=== PATIENT | female | born 1945 | race Caucasian/White ===

== ENCOUNTER → 2017-01-14 | Outpatient (CLI) | payer OTHER ==
[~2017-01-14] MED LIST: AMOX875T PO; ASPCH81X PO; CALCTAB7 PO; CIPR-255 PO; CPROT OT; DICL1GEL12 TD; DILT180C PO; ISOS30TA3 PO; LEVO100T PO; NSNN50; NTRGSL/4 UT; OMEP20CA9 PO; SIMV10TA2 PO; SYMIN160 INH; ZNTT/150 PO
[2017-01-14 15:31] LABS: BASO % 0.3 %; BASO ABS # 0.03 K/uL (0-0.2); COMPLETE YES; EOS % 3.3 %; HEMATOCRIT 34.6 % (37-47); IG% 0.2 %; LYMPH ABS # 1.84 K/uL (1.2-3.4); MEAN CORPUSCULAR HEMOGLOBIN 31.2 pg (25-34); MEAN CORPUSCULAR HGB CONC 33.5 g/dl (32-36); MEAN PLATELET VOLUME 10.3 fL (7.4-10.4); MONO % 7.5 %; NEUT % 68.7 %; PLATELET COUNT 310 K/uL (130-400); RED BLOOD COUNT 3.72 M/uL (4.2-5.4); WHITE BLOOD COUNT 9.19 K/uL (4.8-10.8)
[2017-01-14 15:50] LABS: ALT/SGPT 49 U/L (12-78); AST/SGOT 31 U/L (15-37); BLOOD UREA NITROGEN 12 mg/dl (7-18); BUN/CREATININE RATIO 14.8 (10-20); CALCIUM 9.2 mg/dl (8.5-10.1); CARBON DIOXIDE 21 mmol/L (21-32); CHLORIDE 106 mmol/L (98-107); CREATININE 0.81 mg/dl (0.60-1.20); GLUCOSE 93 mg/dl (70-99); POTASSIUM 3.7 mmol/L (3.5-5.1); SODIUM 137 mmol/L (136-145)
[2017-01-14 16:00] LABS: ALB/GLOB RATIO 0.7 (0.9-2); ALKALINE PHOSPHATASE 87 U/L (45-117)
== END | disposition home or self-care (01) ==
LOC: C.LAB1850 14:25
PROVIDERS: ATTEND Neuromusculoskeletal Medicine & OMM
DX: E03.9 Hypothyroidism, unspecified (principal); R53.83 Other fatigue

== ENCOUNTER 2017-01-17 10:35 | Emergency (ER) | payer OTHER ==
[~2017-01-17] VITALS: Ht 162.6 cm; Wt 85.0 kg
[~2017-01-17 10:35] MED LIST changes: -AMOX875T PO; -CIPR-255 PO; -CPROT OT; -DILT180C PO; -ZNTT/150 PO
[2017-01-17 10:37] VITALS: TEMP 36.6; Ht 162.6 cm; Wt 85.0 kg
[2017-01-17] MEDS ORDERED: METOCLOPRAMIDE HCL INJ 5 MG/ML 2 ML VIAL IV STA (11:18)
[2017-01-17] MEDS ORDERED: DiphenhydrAMINE HCL 50 MG/ML VIAL IV STA (11:18)
[2017-01-17] MEDS ORDERED: ACETAMINOPHEN 500 MG TAB PO STA (11:18)
[2017-01-17] MEDS ORDERED: ZNTT/150 PO (11:21)
[2017-01-17] MEDS ORDERED: DILT180C PO (11:21)
--- NOTE | 2017-01-17 11:28 | EMERGENCY ROOM VISIT NOTE ---
History Report prepared by Bruna: Talon Reyna Under the Supervision of: Dr. Joni Arteaga M.D. First contact with patient: 10:46 Chief Complaint: EAR PAIN Stated Complaint: HEADACHE,NAUSEA,EAR BLEEDING,NECK PAIN,DIZZY History of Present Illness The patient is a 71 year old white female with a past medical history of borderline diabetes who presents to the ED with a cc of persistent right ear pain beginning last week. Positive sore throat, headache, nausea, vomiting and difficulty hearing. Seen by PCP for symptoms and was noted to have a large amount of wax in her right ear. Ear began draining clear fluid two days ago. Patient notes she began seeing bloody discoloration in the fluid yesterday. Has used ear drops, but nothing has improved symptoms. No recent antibiotic use. Granddaughter recently had similar symptoms. Source of History: patient Onset: Last week Position: ear (right) Quality: other (pain, and bloody drainage) Timing: other (persistent) Modifying Factors (Relieving): other (none) Associated Symptoms: + headache, + sorethroat, + nausea, + vomiting Note: Additional symptoms: difficulty hearing. Review of Systems See HPI for pertinent positives and negatives. A total of ten systems were reviewed and were otherwise negative. Past Medical & Surgical Medical Problems: (1) Anemia (2) Bronchitis (3) Heart murmur Family History Cancer Diabetes mellitus Gallbladder disease Heart disease Hypertension Kidney disease Kidney stones Lung disease Social History Smoking Status: Never Smoker Alcohol Use: none Marital Status: Housing Status: lives with significant other Current/Historical Medications Scheduled Amoxicillin & Pot Clavulanate (Augmentin 875-125 mg), 1 TAB PO BID Aspirin (Aspirin Chewable), 81 MG PO DAILY Calcium Carbonate-Vitamin D W/ (Caltrate 600 Plus), 1 TAB PO DAILY Ciprofloxacin Hcl (Cipro), 500 MG PO BID Ciprofloxacin-Hydrocortisone (Cipro Hc Otic), 3 DROPS OT BID Diltiazem Hcl Coated Beads (Diltiazem Hcl Er), 180 MG PO DAILY Levothyroxine Sodium (Synthroid), 100 MCG PO DAILY Mometasone Furoate (Nasal) (Nasonex), 1 SPRAY NA DAILY Nitroglycerin (Nitrostat), 0.4 MG UT PRN Ranitidine (Zantac), 150 MG PO BID Simvastatin (Zocor), 10 MG PO QPM Scheduled PRN Budesonide/Formoterol Fumarate (Symbicort 160/4.5 Inhaler), 2 PUFFS INH BID PRN for SOB/Wheezing Allergies Coded Allergies: No Known Allergies (Unverified , 01/17/17) Physical Exam Vital Signs Date Time Temp Pulse Resp B/P (MAP) Pulse Ox O2 Delivery O2 Flow Rate FiO2 01/17/17 15:36 58 18 128/65 98 Room Air 01/17/17 13:12 65 20 121/69 100 01/17/17 10:37 36.6 88 16 126/78 98 Room Air Physical Exam GENERAL: Awake, alert, well-appearing, NAD HENT: Normocephalic, atraumatic. Left auditory canal occluded with cerumen. Pale whitish discolored material within the right ear. TM not visualized. Clear fluid training. Posterior oropharynx is clear. No tonsillar or posterior pharyngeal swelling. EYES: Normal conjunctiva. Sclera non-icteric. NECK: Supple. No nuchal rigidity. FROM. RESPIRATORY: CTAB, no rhonchi, wheezing, crackles CARDIAC: RRR. Systolic ejection murmur noted. ABDOMEN: Soft, NTND, BS+ MSK: No chest wall TTP, no LE edema NEURO: GCS 15, CN 2-12 intact, moves all 4s on command SKIN: No rash or jaundice noted. Medical Decision & Procedures ER Provider Diagnostic Interpretation: Radiology results as stated below per my review and radiologist interpretation: CT SCAN OF THE TEMPORAL BONES WITHOUT IV CONTRAST FINDINGS: The skeletal structures are osteopenic. No temporal bone fracture is seen. There is a large right mastoid effusion. Fluid is also seen within the right middle ear and the external auditory canal. No bony destruction is identified. The scutum appears sharp bilaterally. There is no dehiscence of the tegmen tympany. The ossicles are normal as imaged. There is no left mastoid effusion. The left middle ear structures are normal as visualized. The visualized calvarium appears intact. The bony orbits are intact and the orbital contents are normal as imaged. Mild mucosal thickening is seen within the right maxillary antrum, the right frontal sinus, and ethmoid sinuses. The visualized brain parenchyma is normal in appearance noting mild age-related involutional change. There is atherosclerotic calcification of the cavernous carotid arteries. Mild soft soft tissue stranding is seen overlying the right mastoid air cells. IMPRESSION: 1. There is fluid identified within the right middle ear and the right external auditory canal, likely representing otitis media and and otitis externa. 2. There is a large right mastoid effusion. No bony destruction is seen. This is nonspecific and mastoiditis would be impossible to exclude. 3. Mild subcutaneous soft tissue seen overlying the right mastoid air cells. Electronically signed by: Paul Meeks M.D. 01/17/2017 12:32 PM Laboratory Results 01/17/17 11:46 Red Blood Count 3.38, Mean Corpuscular Volume 94.7, Mean Corpuscular Hemoglobin 31.7, Mean Corpuscular Hemoglobin Concent 33.4, Mean Platelet Volume 9.7, Neutrophils (%) (Auto) 90.5, Lymphocytes (%) (Auto) 4.3, Monocytes (%) (Auto) 4.5, Eosinophils (%) (Auto) 0.2, Basophils (%) (Auto) 0.1, Neutrophils # (Auto) 12.58, Lymphocytes # (Auto) 0.60, Monocytes # (Auto) 0.62, Eosinophils # (Auto) 0.03, Basophils # (Auto) 0.02 01/17/17 11:46 Test 01/17/17 11:46 01/17/17 12:58 White Blood Count 13.91 K/uL (4.8-10.8) Red Blood Count 3.38 M/uL (4.2-5.4) Hemoglobin 10.7 g/dL (12.0-16.0) Hematocrit 32.0 % (37-47) Mean Corpuscular Volume 94.7 fL (80-100) Mean Corpuscular Hemoglobin 31.7 pg (25-34) Mean Corpuscular Hemoglobin Concent 33.4 g/dl (32-36) Platelet Count 277 K/uL (130-400) Mean Platelet Volume 9.7 fL (7.4-10.4) Neutrophils (%) (Auto) 90.5 % Lymphocytes (%) (Auto) 4.3 % Monocytes (%) (Auto) 4.5 % Eosinophils (%) (Auto) 0.2 % Basophils (%) (Auto) 0.1 % Neutrophils # (Auto) 12.58 K/uL (1.4-6.5) Lymphocytes # (Auto) 0.60 K/uL (1.2-3.4) Monocytes # (Auto) 0.62 K/uL (0.11-0.59) Eosinophils # (Auto) 0.03 K/uL (0-0.5) Basophils # (Auto) 0.02 K/uL (0-0.2) RDW Standard Deviation 48.9 fL (36.4-46.3) RDW Coefficient of Variation 14.1 % (11.5-14.5) Immature Granulocyte % (Auto) 0.4 % Immature Granulocyte # (Auto) 0.06 K/uL (0.00-0.02) Anion Gap 5.0 mmol/L (3-11) Est Creatinine Clear Calc Drug Dose 68.1 ml/min Estimated GFR () 86.0 Estimated GFR (Non- 74.2 BUN/Creatinine Ratio 13.1 (10-20) Calcium Level 9.2 mg/dl (8.5-10.1) Prothrombin Time 11.5 SECONDS (9.0-12.0) Prothromb Time International Ratio 1.1 (0.9-1.1) Activated Partial Thromboplast Time 30.4 SECONDS (21.0-31.0) Partial Thromboplastin Ratio 1.2 Laboratory results reviewed by me Medications Administered Medications (Trade) Dose Ordered Sig/Fox Route Start Time Stop Time Status Last Admin Dose Admin Metoclopramide HCl (Reglan Inj) 10 mg NOW STAT IV 01/17/17 11:18 01/17/17 11:23 DC 01/17/17 11:52 10 MG Diphenhydramine HCl (Benadryl Inj) 25 mg NOW STAT IV 01/17/17 11:18 01/17/17 11:23 DC 01/17/17 11:52 25 MG Acetaminophen (Tylenol Tab) 1,000 mg NOW STAT PO 01/17/17 11:18 01/17/17 11:23 DC 01/17/17 11:51 1,000 MG ED Course 1101: The patient was evaluated in room C9. A complete history and physical exam was performed. 1350: I reevaluated the patient. Discussed results and discharge instructions: she verbalized understanding and agreement. The patient is ready for discharge. Medical Decision The patient is a 71 year old white female with a past medical history of borderline diabetes who presents to the ED with a cc of persistent right ear pain beginning last week. Differential diagnosis includes etiologies such as viral syndrome, otitis media, otitis externa, pharyngitis, influenza, meningitis , sepsis, bacteremia, as well as others were entertained. Patient was seen and evaluated the bedside. Patient is have an mild ear pain going on for approximately 1 week time. Patient has had some mild headache without any vision changes. Patient does have decreased hearing. Patient did see her primary care physician which stated that she had a cerumen impaction of the right ear. She then noticed a drainage of clear fluid and then noticed some bloody tinged fluid. Patient denies any fevers or chills. Patient does not have any signs of nuchal rigidity or meningismus. Patient is afebrile vital signs are stable. I did speak with radiology and ordered a non-con temporal bone scan. Patient did have blood work that was completed along with treatment for mild headache. Patient was feeling improved. Patient had a benign physical exam neurologically speaking. Patient had no signs of meningismus or nuchal rigidity. Patient did have mild white count of 13. Patient did have a CT temporal bone stand which did show some mastoid effusion but without bony degeneration and unable to say whether not mastoiditis clinically I do not believe that the patient has mastoiditis. I did give the patient warning signs for which to return. Patient is likely have a very bad otitis externa and otitis media. Patient was given antibiotics as well as drops. Ear wick was placed. Patient was told to follow-up with her PCP and that if her symptoms got any worse or if she displayed any other worsening warning signs we discussed she should return to the emergency department. Patient is amenable to plan of care. Patient is suitable for outpatient follow-up and treatment. All cautions were answered. Patient was given strict follow-up, discharge, and return precautions. All questions were answered. Patient was deemed suitable for outpatient follow-up at this time. Patient agreed with the plan of care and was safely discharged home. Medication Reconcilliation Current Medication List: was personally reviewed by me Blood Pressure Screening Patient's blood pressure: Normal blood pressure Blood pressure disposition: Did not require urgent referral Impression Primary Impression: Ear pain, right Additional Impressions: Otitis externa Otitis media Scribe Attestation The scribe's documentation has been prepared under my direction and personally reviewed by me in its entirety. I confirm that the note above accurately reflects all work, treatment, procedures, and medical decision making performed by me. Departure Information Dispostion Home / Self-Care Prescriptions Amoxicillin & Pot Clavulanate (Augmentin 875-125 mg) 1 Tab Tab 1 TAB PO BID for 7 Days, #14 TAB Prov: Joni Arteaga M.D. 01/17/17 Ciprofloxacin-Hydrocortisone (CIPRO HC OTIC) 1 Marci Marci 3 DROPS OT BID for 7 Days, #1 BTL Prov: Joni Arteaga M.D. 01/17/17 Ciprofloxacin Hcl (CIPRO) 500 Mg Tab 500 MG PO BID, #14 TAB Prov: Joni Arteaga M.D. 01/17/17 Referrals Patricio Quigley D.OSimone (PCP) Patient Instructions ED Otitis Externa, ED Otitis Media Acute Adult, [facility] Additional Instructions Please return to the emergency department if you have worsening or recurrent symptoms not amenable to at-home treatment. Please call for a follow-up appointment with her primary care physician. Please take your medications as prescribed. If you have other concerns and/or complaints please feel free to also call your primary care physician's office or return the ED for further evaluation, management, and treatment. You may take 400 mg Ibuprofen every 6 hours as needed for pain with food for no more than 2 consecutive days. You may take tylenol 650 mg every 6 hours as needed for pain. You may take motrin and tylenol separately or at the same time. Take your medications as prescribed. You have been examined and treated today on an emergency basis only. This is not a substitute for, or an effort to provide, complete comprehensive medical care. It is impossible to recognize and treat all injuries or illnesses in a single emergency department visit. It is therefore important that you follow up closely with [facility], your PCP, and/or your specialist(s). Call as soon as possible for an appointment. Thank you for your time and consideration. I look forward to speaking with you again soon. Please don't hesitate to call us if you have any questions. Problem Qualifiers Additional Impressions: Otitis externa Otitis externa type: diffuse Chronicity: acute Laterality: right Qualified Codes: H60.311 - Diffuse otitis externa, right ear Otitis media Otitis media type: serous Chronicity: acute Laterality: right Recurrence : not specified as recurrent Qualified Codes: H65.01 - Acute serous otitis media, right ear
[2017-01-17 12:00] LABS: BASO % 0.1 %; BASO ABS # 0.02 K/uL (0-0.2); COMPLETE YES; EOS % 0.2 %; IG% 0.4 %; LYMPH % 4.3 %; MEAN CELL VOLUME 94.7 fL (80-100); MEAN CORPUSCULAR HEMOGLOBIN 31.7 pg (25-34); MEAN CORPUSCULAR HGB CONC 33.4 g/dl (32-36); MEAN PLATELET VOLUME 9.7 fL (7.4-10.4); MONO % 4.5 %; NEUT % 90.5 %; PLATELET COUNT 277 K/uL (130-400); RED BLOOD COUNT 3.38 M/uL (4.2-5.4); WHITE BLOOD COUNT 13.91 K/uL (4.8-10.8)
[2017-01-17 12:18] LABS: BUN/CREATININE RATIO 13.1 (10-20); CALCIUM 9.2 mg/dl (8.5-10.1); CREATININE 0.8 mg/dl (0.60-1.20); POTASSIUM 3.6 mmol/L (3.5-5.1)
--- NOTE | 2017-01-17 12:33 | DIAGNOSTIC IMAGING REPORT ---
CT SCAN OF THE TEMPORAL BONES WITHOUT IV CONTRAST CLINICAL HISTORY: Drainage from the right ear. COMPARISON STUDY: No priors. TECHNIQUE: High-resolution CT scan of the temporal bones is performed. Images are reviewed in the axial, sagittal, and coronal planes. IV contrast was not administered for this examination. A dose lowering technique was utilized adhering to the principles of ALARA. CT DOSE: 429.02 mGy.cm FINDINGS: The skeletal structures are osteopenic. No temporal bone fracture is seen. There is a large right mastoid effusion. Fluid is also seen within the right middle ear and the external auditory canal. No bony destruction is identified. The scutum appears sharp bilaterally. There is no dehiscence of the tegmen tympany. The ossicles are normal as imaged. There is no left mastoid effusion. The left middle ear structures are normal as visualized. The visualized calvarium appears intact. The bony orbits are intact and the orbital contents are normal as imaged. Mild mucosal thickening is seen within the right maxillary antrum, the right frontal sinus, and ethmoid sinuses. The visualized brain parenchyma is normal in appearance noting mild age-related involutional change. There is atherosclerotic calcification of the cavernous carotid arteries. Mild soft soft tissue stranding is seen overlying the right mastoid air cells. IMPRESSION: 1. There is fluid identified within the right middle ear and the right external auditory canal, likely representing otitis media and and otitis externa. 2. There is a large right mastoid effusion. No bony destruction is seen. This is nonspecific and mastoiditis would be impossible to exclude. 3. Mild subcutaneous soft tissue seen overlying the right mastoid air cells. Electronically signed by: Paul Meeks M.D. 01/17/2017 12:32 PM Dictated Date/Time: 01/17/2017 12:16 PM
[2017-01-17 13:26] LABS: INR 1.1 (0.9-1.1); PARTIAL THROMBOPLASTIN RATIO 1.2; PROTHROMBIN TIME (PATIENT) 11.5 SECONDS (9.0-12.0)
[2017-01-17] MEDS ORDERED: CPROT OT (13:52)
[2017-01-17] MEDS ORDERED: AMOX875T PO (13:52)
[2017-01-17] MEDS ORDERED: CIPR-255 PO (13:52)
[2017-01-17 15:36] VITALS: BP 128/65; PULSE 58; O2SAT 98
== END 2017-01-17 15:39 | disposition home or self-care (01) ==
LOC: C.EDB 10:36 → C.EDC 15:39
DX: H60.311 Diffuse otitis externa, right ear (principal); H65.01 Acute serous otitis media, right ear; D64.9 Anemia, unspecified; R01.1 Cardiac murmur, unspecified; Z80.9 Family history of malignant neoplasm, unspecified; Z83.3 Family history of diabetes mellitus; Z82.49 Family history of ischemic heart disease and other diseases of the circulatory system; Z83.79 Family history of other diseases of the digestive system; Z84.1 Family history of disorders of kidney and ureter; Z83.6 Family history of other diseases of the respiratory system; Z79.82 Long term (current) use of aspirin; Z79.899 Other long term (current) drug therapy

== ENCOUNTER → 2017-02-11 | Outpatient (CLI) | payer OTHER ==
[~2017-02-11] MED LIST changes: +CIPR-255 PO; -DICL1GEL12 TD; +DILT180C PO; -ISOS30TA3 PO; -OMEP20CA9 PO; +ZNTT/150 PO
== END | disposition home or self-care (01) ==
LOC: C.MAMM 09:08
PROVIDERS: ATTEND Neuromusculoskeletal Medicine & OMM
DX: Z00.00 Encounter for general adult medical examination without abnormal findings (principal); M85.89 Other specified disorders of bone density and structure, multiple sites

== ENCOUNTER 2017-04-03 16:38 | Emergency (ER) | payer OTHER ==
[~2017-04-03] VITALS: Ht 162.6 cm; Wt 86.0 kg
[2017-04-03 16:40] VITALS: TEMP 37.1; Ht 162.6 cm; Wt 86.0 kg
[2017-04-03] MEDS ORDERED: ALBUT/IPRATROP 3MG/0.5MG NEB 3 ML VIAL INH STA (18:06)
[2017-04-03] MEDS ORDERED: FAMOTIDINE 20MG/5ML IV PUSH IV STA (18:06)
[2017-04-03] MEDS ORDERED: SODIUM CHLORIDE 0.9% 500ML 500 ML IV STA (18:06)
--- NOTE | 2017-04-03 18:15 | EMERGENCY ROOM VISIT NOTE ---
History Report prepared by Bruna: Urbano Monzon Under the Supervision of: Dr. Manohar Hernandez M.D. First contact with patient: 17:52 Chief Complaint: CHEST PAIN Stated Complaint: CHEST PAIN Nursing Triage Summary: CP for 2 weeks after having a cough/cold. History of Present Illness The patient is a 71 year old female who presents to the Emergency Room with complaints of waxing and waning chest pain for the past couple of weeks which she describes as a tightness. She notes that she has had angina in the past, though it usually goes away, and this time it has been steady. The patient notes that she had a cough a couple of weeks ago, though it has went away, and her chest pain started then. She reports that she has been occasionally short of breath recently. She notes that she has had a catheterization, and she sees cardiology regularly, and she last saw them in January. She is not currently on a water pill. She denies any nausea, diarrhea, and any new body aches. The patient has no history of asthma, DC, and smoking, though she has some acid reflux. She additionally reports that she took nitro the other day, and this relieved the pain. She states that she has been eating well. Source of History: patient Onset: a couple of weeks ago Position: chest Quality: other (tightness) Timing: waxes/wanes Modifying Factors (Worsening): exertion Modifying Factors (Relieving): other (nitro) Associated Symptoms: + SOB, No cough, No nausea, No diarrhea Review of Systems See HPI for pertinent positives and negatives. A total of ten systems were reviewed and were otherwise negative. Past Medical & Surgical Medical Problems: (1) Anemia (2) Bronchitis (3) Heart murmur Family History Cancer Diabetes mellitus Gallbladder disease Heart disease Hypertension Kidney disease Kidney stones Lung disease Social History Smoking Status: Never Smoker Alcohol Use: none Marital Status: Housing Status: lives with significant other Current/Historical Medications Scheduled Aspirin (Aspirin Chewable), 81 MG PO DAILY Calcium Carbonate-Vitamin D W/ (Caltrate 600 Plus), 1 TAB PO DAILY Diltiazem Hcl Coated Beads (Diltiazem Hcl Er), 180 MG PO DAILY Fluticasone Propionate (Fluticasone Propionate), 1 SPRAY INH BID Levothyroxine Sodium (Synthroid), 100 MCG PO DAILY Nitroglycerin (Nitrostat), 0.4 MG UT PRN Omeprazole (Prilosec), 40 MG PO DAILY Ranitidine (Zantac), 150 MG PO BID Simvastatin (Zocor), 10 MG PO QPM Scheduled PRN Acetaminophen (Tylenol), 1,000 MG PO DAILY PRN for Pain or Fever Budesonide/Formoterol Fumarate (Symbicort 160/4.5 Inhaler), 2 PUFFS INH BID PRN for SOB/Wheezing Allergies Coded Allergies: No Known Allergies (Unverified , 04/03/17) Physical Exam Vital Signs Date Time Temp Pulse Resp B/P (MAP) Pulse Ox O2 Delivery O2 Flow Rate FiO2 04/03/17 19:32 72 20 131/75 97 Room Air 04/03/17 18:37 64 04/03/17 18:35 100 Room Air 04/03/17 18:30 53 20 134/68 99 04/03/17 16:44 98 Room Air 04/03/17 16:40 37.1 84 17 135/80 98 Room Air Physical Exam GENERAL: Fatigued appearing. No distress. HENT: Normocephalic, atraumatic. Dr mucous membranes. Oropharynx unremarkable. EYES: Normal conjunctiva. Sclera non-icteric. NECK: Supple. No nuchal rigidity. FROM. No JVD. RESPIRATORY: Clear to auscultation. CARDIAC: Regular rate, normal rhythm. Extremities warm and well perfused. Pulses equal. ABDOMEN: Soft, non-distended. No tenderness to palpation. No rebound or guarding. No masses. RECTAL: Deferred. MUSCULOSKELETAL: Reproducible chest pain to the anterior chest wall. The back is symmetrical on inspection without obvious abnormality. There is no CVA tenderness to palpation. No joint edema. LOWER EXTREMITIES: Calves are equal size bilaterally and non-tender. No edema. No discoloration. NEURO: Normal sensorium. No sensory or motor deficits noted. SKIN: No rash or jaundice noted. Medical Decision & Procedures ER Provider Diagnostic Interpretation: Radiology results as stated below per my review and radiologist interpretation: CHEST ONE VIEW PORTABLE CLINICAL HISTORY: 71 years-old Female presenting with CHEST PAIN. TECHNIQUE: Portable upright AP view of the chest was obtained. COMPARISON: 08/12/2013. FINDINGS: Cardiomediastinal silhouette normal. Mildly low lung volumes with hypoventilatory changes. Mild pulmonary vascular prominence. No focal opacity. No large effusion or pneumothorax. Calcified granulomas suggested. Osseous structures normal. Upper abdomen normal. IMPRESSION: 1. Mildly low lung volumes with hypoventilatory changes. 2. Possible volume overload. Electronically signed by: Morteza Silva M.D. 04/03/2017 7:01 PM Dictated Date/Time: 04/03/2017 7:00 PM Laboratory Results 04/03/17 17:57 Red Blood Count 3.84, Mean Corpuscular Volume 93.2, Mean Corpuscular Hemoglobin 31.3, Mean Corpuscular Hemoglobin Concent 33.5, Mean Platelet Volume 10.4, Neutrophils (%) (Auto) 65.5, Lymphocytes (%) (Auto) 23.9, Monocytes (%) (Auto) 7.0, Eosinophils (%) (Auto) 3.3, Basophils (%) (Auto) 0.2, Neutrophils # (Auto) 5.33, Lymphocytes # (Auto) 1.95, Monocytes # (Auto) 0.57, Eosinophils # (Auto) 0.27, Basophils # (Auto) 0.02 04/03/17 17:57 Test 04/03/17 17:57 04/03/17 18:40 White Blood Count 8.15 K/uL (4.8-10.8) Red Blood Count 3.84 M/uL (4.2-5.4) Hemoglobin 12.0 g/dL (12.0-16.0) Hematocrit 35.8 % (37-47) Mean Corpuscular Volume 93.2 fL (80-100) Mean Corpuscular Hemoglobin 31.3 pg (25-34) Mean Corpuscular Hemoglobin Concent 33.5 g/dl (32-36) Platelet Count 282 K/uL (130-400) Mean Platelet Volume 10.4 fL (7.4-10.4) Neutrophils (%) (Auto) 65.5 % Lymphocytes (%) (Auto) 23.9 % Monocytes (%) (Auto) 7.0 % Eosinophils (%) (Auto) 3.3 % Basophils (%) (Auto) 0.2 % Neutrophils # (Auto) 5.33 K/uL (1.4-6.5) Lymphocytes # (Auto) 1.95 K/uL (1.2-3.4) Monocytes # (Auto) 0.57 K/uL (0.11-0.59) Eosinophils # (Auto) 0.27 K/uL (0-0.5) Basophils # (Auto) 0.02 K/uL (0-0.2) RDW Standard Deviation 49.6 fL (36.4-46.3) RDW Coefficient of Variation 14.5 % (11.5-14.5) Immature Granulocyte % (Auto) 0.1 % Immature Granulocyte # (Auto) 0.01 K/uL (0.00-0.02) Anion Gap 5.0 mmol/L (3-11) Est Creatinine Clear Calc Drug Dose 70.2 ml/min Estimated GFR () 88.6 Estimated GFR (Non- 76.5 BUN/Creatinine Ratio 25.3 (10-20) Calcium Level 9.1 mg/dl (8.5-10.1) Total Bilirubin 0.2 mg/dl (0.2-1) Direct Bilirubin 0.1 mg/dl (0-0.2) Aspartate Amino Transf (AST/SGOT) 24 U/L (15-37) Alanine Aminotransferase (ALT/SGPT) 29 U/L (12-78) Alkaline Phosphatase 77 U/L (45-117) Troponin I < 0.015 ng/ml (0-0.045) Pro-B-Type Natriuretic Peptide 114 pg/ml (0-900) Total Protein 9.2 gm/dl (6.4-8.2) Albumin 4.1 gm/dl (3.4-5.0) Lipase 127 U/L (73-393) Influenza Type A Antigen Neg for Influ A (NEG) Influenza Type B Antigen Neg for Influ B (NEG) Laboratory results reviewed by me Medications Administered Medications (Trade) Dose Ordered Sig/Fox Route Start Time Stop Time Status Last Admin Dose Admin Sodium Chloride 500 ml @ 999 mls/hr Q31M STAT IV 04/03/17 18:06 04/03/17 18:36 DC 04/03/17 18:27 999 MLS/HR Famotidine (Pepcid 20mg Iv Push) 20 mg NOW STAT IV 04/03/17 18:06 04/03/17 18:13 DC 04/03/17 18:27 20 MG Albuterol/ Ipratropium (Duoneb) 3 ml NOW STAT INH 04/03/17 18:06 04/03/17 18:13 DC 04/03/17 18:27 3 ML ECG Indication: chest pain Rate (beats per minute): 77 Rhythm: normal sinus Findings: no acute ischemic change, other (normal axis) Change: Patient's electrocardiogram interpreted by me. ED Course 1751: The patient was evaluated in room B3. A complete history and physical exam was performed. 1913: I reevaluated the patient. Discussed results and discharge instructions: she verbalized understanding and agreement. The patient is ready for discharge. Medical Decision I reviewed the patient's past medical history, medications, and the nursing notes as described above. Differential diagnosis: Etiologies such as cardiac ischemia, aortic dissection, pulmonary embolism, pneumonia, pneumothorax, musculoskeletal, infections, pericarditis, myocarditis , esophageal rupture, gastrointestinal, as well as others were entertained. The patient is a 71 y/o woman CP with cath in 2013 with no significant occlusion who presents to the emergency department with constant CP that randomly waxes and wanes over the past couple of weeks per HPI. On arrival the patient is in NAD, AFVSS. EKG unremarkable. Trop negative in the setting of 2 weeks of constant sx. Thus, ACS not likely. CXR negative. CXR negative for PNA with ?volume overload but BNP wnl and no respiratory sx at this time. Labs otherwise unremarkable. Sx improved after IVF and pepcid. Thus symptoms are most likely related to reflux or a gastritis after the patient's recent cold. Findings and plan for follow-up reviewed with patient. Patient agreeable and d/c 'd per discharge instructions. Medication Reconcilliation Current Medication List: was personally reviewed by me Blood Pressure Screening Patient's blood pressure: Normal blood pressure Impression Primary Impression: Substernal precordial chest pain Additional Impression: Gastritis Scribe Attestation The scribe's documentation has been prepared under my direction and personally reviewed by me in its entirety. I confirm that the note above accurately reflects all work, treatment, procedures, and medical decision making performed by me. Departure Information Dispostion Home / Self-Care Prescriptions Omeprazole (PRILOSEC) 40 Mg Cap 40 MG PO DAILY for 14 Days, #14 CAP Prov: Manohar Hernandez M.D. 04/03/17 Referrals Patricio Quigley D.OSimone (PCP) Forms Call Back Authorization, HOME CARE DOCUMENTATION FORM, IMPORTANT VISIT INFORMATION Patient Instructions ED Chest Pain Atypical Unkn Cause, ED Gastritis, My [facility] Additional Instructions Please follow up with your primary care physician and sample shoe inspector and reworker in the next 1 -3 days for re-evaluation. Your symptoms are most likely related to reflux or a gastritis after your recent cold. Otherwise, your exam, EKG, chest xray, and lab results did not show signs of an emergent condition at this time. Acetaminophen for pain and fevers as needed. Omeprazole in addition to your Zantac for additional acid reduction. Drink plenty of fluids to ensure hydration. Return to the emergency department for worsening symptoms as described in the accompanying instructions. Problem Qualifiers
[2017-04-03 18:30] LABS: BASO % 0.2 %; BASO ABS # 0.02 K/uL (0-0.2); EOS % 3.3 %; EOS ABS # 0.27 K/uL (0-0.5); HEMATOCRIT 35.8 % (37-47); IG# 0.01 K/uL (0.00-0.02); LYMPH % 23.9 %; LYMPH ABS # 1.95 K/uL (1.2-3.4); MEAN CELL VOLUME 93.2 fL (80-100); MEAN CORPUSCULAR HEMOGLOBIN 31.3 pg (25-34); MEAN CORPUSCULAR HGB CONC 33.5 g/dl (32-36); MEAN PLATELET VOLUME 10.4 fL (7.4-10.4); MONO ABS # 0.57 K/uL (0.11-0.59); NEUT % 65.5 %; NEUT ABS # 5.33 K/uL (1.4-6.5); PLATELET COUNT 282 K/uL (130-400); RED CELL DISTRIBUTION WIDTH CV 14.5 % (11.5-14.5); RED CELL DISTRIBUTION WIDTH SD 49.6 fL (36.4-46.3); WHITE BLOOD COUNT 8.15 K/uL (4.8-10.8)
[2017-04-03 18:35] VITALS: O2SAT 100
[2017-04-03 18:38] LABS: ALBUMIN 4.1 gm/dl (3.4-5.0); ALT/SGPT 29 U/L (12-78); BLOOD UREA NITROGEN 20 mg/dl (7-18); CALCIUM 9.1 mg/dl (8.5-10.1); CARBON DIOXIDE 24 mmol/L (21-32); CREATININE 0.78 mg/dl (0.60-1.20); GLUCOSE 98 mg/dl (70-99); LIPASE 127 U/L (73-393); SODIUM 135 mmol/L (136-145)
[2017-04-03 18:43] LABS: ALKALINE PHOSPHATASE 77 U/L (45-117); AST/SGOT 24 U/L (15-37); TOTAL PROTEIN 9.2 gm/dl (6.4-8.2)
[2017-04-03] MEDS ORDERED: FLNIN/ INH (18:44)
[2017-04-03] MEDS ORDERED: ACET-1256 PO (18:47)
--- NOTE | 2017-04-03 19:02 | DIAGNOSTIC IMAGING REPORT ---
CHEST ONE VIEW PORTABLE CLINICAL HISTORY: 71 years-old Female presenting with CHEST PAIN. TECHNIQUE: Portable upright AP view of the chest was obtained. COMPARISON: 08/12/2013. FINDINGS: Cardiomediastinal silhouette normal. Mildly low lung volumes with hypoventilatory changes. Mild pulmonary vascular prominence. No focal opacity. No large effusion or pneumothorax. Calcified granulomas suggested. Osseous structures normal. Upper abdomen normal. IMPRESSION: 1. Mildly low lung volumes with hypoventilatory changes. 2. Possible volume overload. Electronically signed by: Morteza Silva M.D. 04/03/2017 7:01 PM Dictated Date/Time: 04/03/2017 7:00 PM
[2017-04-03 19:11] LABS: INFLUENZA B ANTIGEN Neg for Influ B (NEG)
[2017-04-03] MEDS ORDERED: OMEP40CA41 PO (19:22)
[2017-04-03 19:32] VITALS: BP 131/75; PULSE 72; O2SAT 97
== END 2017-04-03 19:41 | disposition home or self-care (01) ==
LOC: C.EDB 16:39
DX: R07.2 Precordial pain (principal); K29.70 Gastritis, unspecified, without bleeding; Z79.899 Other long term (current) drug therapy

== ENCOUNTER → 2017-05-09 | Outpatient (CLI) | payer OTHER ==
[~2017-05-09] MED LIST changes: +ACET-1256 PO; -CIPR-255 PO; +FLNIN/ INH; -NSNN50; +RANI150T85 PO; -ZNTT/150 PO
[2017-05-09 12:27] LABS: BLOOD UREA NITROGEN 17 mg/dl (7-18); CREATININE 0.77 mg/dl (0.60-1.20)
== END | disposition home or self-care (01) ==
LOC: C.LAB1850 10:01
PROVIDERS: ATTEND Physician Assistant
DX: H91.91 Unspecified hearing loss, right ear (principal)

== ENCOUNTER → 2017-05-22 | Outpatient (CLI) | payer OTHER ==
[~2017-05-22] MED LIST changes: +GADAVIST IV PRN
--- NOTE | 2017-05-22 13:51 | DIAGNOSTIC IMAGING REPORT ---
MRI OF THE BRAIN COMBO INTERNAL AUDITORY CANAL PROTOCOL CLINICAL HISTORY: Asymmetric right-sided hearing loss. COMPARISON STUDY: CT scan of the temporal bones dated 01/17/2017. TECHNIQUE: MRI of the brain was performed utilizing various T1 and T2-weighted sequences in the axial, sagittal, and coronal planes. Contrast-enhanced sequences were acquired following the administration of 8.5 cc of Gadavist. Additional high-resolution imaging was performed through the skull base both pre and post contrast to assess the internal auditory canals. FINDINGS: Brain parenchyma: There are age-related involutional changes noting mild subcortical and periventricular microangiopathic disease. There is no hemorrhage or mass effect. There is no restricted diffusion to suggest acute ischemia. No enhancing mass lesion is identified on the postcontrast images. There is a tiny chronic lacunar infarct identified in the left cerebellar hemisphere. Hunter-white matter differentiation is preserved. No extra-axial fluid collection is seen. The cerebellar tonsils are normal in configuration. Ventricles, sulci, and cisterns: Prominent secondary to involutional change. Internal auditory canals: There is no enhancing mass lesion identified in the cerebellopontine angle bilaterally. No mass lesion or abnormal enhancement is identified along the course of the internal auditory canals. The middle ear structures are normal as visualized. Pituitary and sella: Partially of the sella is incidentally noted. Intracranial vasculature: Normal flow voids are maintained at the skull base. Orbits: The bony orbits are grossly intact. Orbital contents are normal in appearance. Sinuses and mastoids: There is a retention cyst and mucosal thickening in the left maxillary antrum. Moderate mucosal thickening is seen in left sphenoid sinus. Mild mucosal thickening is also seen in the right frontal and the ethmoid sinuses. There are bilateral mastoid effusions, right larger than left. Calvarium: Unremarkable. Cervical cord: Partially visualized cervical spinal cord is normal in morphology and signal intensity. IMPRESSION: 1. No acute intracranial abnormality. 2. Mastoid effusions, right larger than left. 3. Unremarkable MRI assessment of the internal auditory canals. Electronically signed by: Paul Meeks M.D. 05/22/2017 1:49 PM Dictated Date/Time: 05/22/2017 1:37 PM
== END | disposition home or self-care (01) ==
LOC: C.MRIBC 12:27
PROVIDERS: ATTEND Physician Assistant
DX: H91.8X1 Other specified hearing loss, right ear (principal); H93.93 Unspecified disorder of ear, bilateral

== ENCOUNTER → 2017-07-09 | Outpatient (CLI) | payer OTHER ==
[~2017-07-09] MED LIST changes: -GADAVIST IV PRN
[2017-07-09 11:25] LABS: HEMATOCRIT 34.1 % (37-47); HEMOGLOBIN 11.4 g/dL (12.0-16.0); MEAN CELL VOLUME 92.7 fL (80-100); MEAN CORPUSCULAR HGB CONC 33.4 g/dl (32-36); MEAN PLATELET VOLUME 10.1 fL (7.4-10.4); PLATELET COUNT 273 K/uL (130-400); RED CELL DISTRIBUTION WIDTH CV 14.8 % (11.5-14.5); RED CELL DISTRIBUTION WIDTH SD 50.6 fL (36.4-46.3); WHITE BLOOD COUNT 5.76 K/uL (4.8-10.8)
[2017-07-09 11:59] LABS: HEMOGLOBIN A1C 5.9 % (4.5-5.6)
== END | disposition home or self-care (01) ==
LOC: C.LAB1850 09:00
PROVIDERS: ATTEND Internal Medicine Cardiovascular Disease
DX: R73.09 Other abnormal glucose (principal); E78.00 Pure hypercholesterolemia, unspecified; D64.9 Anemia, unspecified; E03.9 Hypothyroidism, unspecified; E55.9 Vitamin D deficiency, unspecified

== ENCOUNTER → 2017-09-26 | Outpatient (CLI) | payer OTHER ==
--- NOTE | 2017-09-26 14:35 | MAMMOGRAPHY REPORT ---
BILATERAL DIGITAL SCREENING MAMMOGRAM TOMOSYNTHESIS WITH CAD: 09/26/2017 CLINICAL HISTORY: Routine screening. Patient has no complaints. TECHNIQUE: The study was acquired using full field digital technology and interpreted from soft copy. Breast tomosynthesis in addition to standard 2D mammography was performed. Current study was also ev aluated with a Computer Aided Detection (CAD) system. COMPARISON: Comparison is made to exams dated: 12/11/2010 mammogram, 12/05/2009 mammogram - [facility], 11/30/2008, 01/16/2005 mammogram, and 11/05/2002 mammogram - [facility]. BREAST COMPOSITION: The tissue of both breasts is heterogeneously dense, which may obscure small mass es. FINDINGS: There are grouped calcifications within the right upper outer quadrant posteriorly, for which spot ma gnification views are recommended for further evaluation. The remainder of both breasts are stable compared to prior exams, without suspicious masses, calcific ations, or areas of architectural distortion noted. Other bilateral benign-appearing calcifications are noted. IMPRESSION: ACR BI-RADS CATEGORY 0: INCOMPLETE EVALUATION: NEED ADDITIONAL IMAGING EVALUATION Right upper outer quadrant calcifications, for which additional imaging evaluation is recommended. T he patient will be called to schedule an appointment. Some breast cancers are not detected with mammography. A negative mammographic report should not ralph y biopsy if a clinically suggestive mass is present. Trisha Seaman M.D. /:09/26/2017 13:33:05 Slasher Tender: Shante Agee, [facility] letter sent: Addl Imaging 0 BI-RADS Code: ACR BI-RADS Category 0: Incomplete Evaluation: Need Additional Imaging Evaluation
== END | disposition home or self-care (01) ==
LOC: C.MAMM 12:03
PROVIDERS: ATTEND Neuromusculoskeletal Medicine & OMM
DX: Z12.31 Encounter for screening mammogram for malignant neoplasm of breast (principal); R92.1 Mammographic calcification found on diagnostic imaging of breast

== ENCOUNTER → 2017-10-03 | Outpatient (CLI) | payer OTHER ==
--- NOTE | 2017-10-03 15:26 | MAMMOGRAPHY REPORT ---
UNILATERAL RIGHT DIGITAL DIAGNOSTIC MAMMOGRAM: 10/03/2017 CLINICAL HISTORY: Callback from screening mammogram right breast calcifications. TECHNIQUE: The study was acquired using full field digital technology and interpreted from soft copy. Spot magnification right CC and ML views were obtained. COMPARISON: Comparison is made to exams dated: 12/11/2010 mammogram, 09/26/2017 mammogram, 12/05/2009 mammogram - [facility], 11/30/2008, 01/16/2005 mammogram, and 11/05/2002 mammogram - [facility]. BREAST COMPOSITION: The tissue of right breast is heterogeneously dense, which may obscure small mass es. FINDINGS: Spot magnification views of the right breast demonstrate a small 3 mm cluster of faint amorphous calc ifications within the right upper outer quadrant posteriorly. The calcifications were not clearly ev ident on prior available mammograms, therefore, the calcifications are indeterminate and stereotactic biopsy is recommended for further evaluation. A smaller similar-appearing 1 mm cluster is seen slig htly inferior to the dominant cluster on the ML view. IMPRESSION: ACR BI-RADS CATEGORY 4: SUSPICIOUS 1. Small 3 mm cluster of faint amorphous calcifications in the right upper outer quadrant is indeterm inate and stereotactic biopsy is recommended for further evaluation. 2. Smaller similar-appearing 1 mm cluster of calcifications is noted slightly inferior to the domina nt cluster. Management of this cluster will be based on the pathology results of the biopsy dominant cluster. A phone call was made to the physician's office to confirm faxed results were received. The patient has been verbally notified of the results. She tentatively scheduled the biopsy before l eaving the department. Some breast cancers are not detected with mammography. A negative mammographic report should not ralph y biopsy if a clinically suggestive mass is present. Trisha Seaman M.D. ah/:10/03/2017 11:59:27 Finance Attorney: RT Kait(Yanely)(M), [facility] letter sent: Abnormal 4/5 BI-RADS Code: ACR BI-RADS Category 4: Suspicious
== END | disposition home or self-care (01) ==
LOC: C.MAMM 11:23
PROVIDERS: ATTEND Neuromusculoskeletal Medicine & OMM
DX: R92.1 Mammographic calcification found on diagnostic imaging of breast (principal)

== ENCOUNTER → 2017-10-22 | Outpatient (CLI) | payer OTHER ==
--- NOTE | 2017-10-22 10:26 | Discharge Instructions ---
Discharge Instructions Procedure Procedure Date: Oct 22, 2017. Reason for visit: Right Calcs. Discharge Discharge Date: Oct 22, 2017. Discharge Diagnosis: status post breast biopsy Instructions Activity Recommendations: Additional Limitations (see below) Return to School/Work: no limitations Recommended Home Diet: No Limitations Provider Instructions: ACTIVITY RECOMMENDATIONS: * No lifting, pushing, pulling or exercising the affected side for three days. RETURN TO SCHOOL/WORK: * You may return to work/school after the procedure, but do not perform any strenuous activities for 24 to 48 hours. MEDICATIONS: * Tylenol (two 325 mg) every four to six hours if needed for mild pain (if not allergic to Tylenol). DIET: * Resume previous diet. SPECIAL CARE INSTRUCTIONS: * Keep biopsy site dry for 24 hours. May shower after 24 hours, but do not soak (bathe) incision. * May remove Tegaderm (plastic patch) 24 hours after procedure * Leave the steri-strips on for one week. Allow the steri-strips to fall off by themselves. If not off after one week, you may remove them. You may place a Bandaid crosswise over the strips, if desired. * Apply ice 10 minutes on and 10 minutes off as needed. * Wear a bra at bedtime to sleep more comfortably for 2-3 days. * Your referring physician should have the results after approximately 5 to 7 business days. * Call for unusual bleeding, fever, drainage, etc or if you have any questions call during normal business hours or after hours call Dr Seaman, [phone]. FOLLOW UP VISIT: Follow-up with Referring Physician as scheduled. Allergies Coded Allergies: No Known Allergies (Unverified , 04/03/17) Phi Nicole Recommendations: Call your doctor if: * Temperature above 101 degrees * Pain not relieved by pain medicine ordered * There is increased drainage or redness from any incision * You have any unanswered questions or concerns. Your Doctors Instructions noted above were prepared by provider Trisha Seaman. Patient Signature Section: Patient Instructions Signature Page Sarah Otero Patient (or Guardian) Signature/Date: I have read and understand the instructions given to me by my caregivers. Caregiver/RN/Doctor Signature/Date: The above-named patient and/or guardian has received patient instructions on this date. + Original Patient Signature Page (only) stays with chart. Please make copy for patient.
--- NOTE | 2017-10-22 13:55 | MAMMOGRAPHY REPORT ---
UNILATERAL RIGHT DIGITAL DIAGNOSTIC MAMMOGRAM: 10/22/2017 CLINICAL HISTORY: Status post right breast stereotactic biopsy. TECHNIQUE: Postprocedural right CC and ML views were obtained. COMPARISON: Comparison is made to exams dated: 10/03/2017 mammogram, 09/26/2017 mammogram, 12/11/2010 m ammogram, 12/05/2009 mammogram - [facility], 11/30/2008, and 01/16/2005 mammogram - [facility]. BREAST COMPOSITION: The tissue of right breast is heterogeneously dense, which may obscure small mass es. FINDINGS: A new biopsy marker clip is seen at the site of the biopsied calcifications in the right up per outer quadrant. No significant postbiopsy hematoma is seen. IMPRESSION: POST PROCEDURE IMAGING FOR MARKER PLACEMENT New biopsy marker clip status post right breast stereotactic biopsy. Pathology results are pending. Some breast cancers are not detected with mammography. A negative mammographic report should not ralph y biopsy if a clinically suggestive mass is present. Trisha Seaman M.D. /:10/22/2017 10:38:09 Buckle Strap Puncher: RT Rhiannon(R)(M), [facility] BI-RADS Code: Post Procedure Imaging For Marker Placement
--- NOTE | 2017-10-22 13:55 | MAMMOGRAPHY REPORT ---
STEREOTACTIC GUIDED BIOPSY RIGHT BREAST: 10/22/2017 CLINICAL HISTORY: Indeterminate calcifications in the right upper outer quadrant. PATIENT CONSENT: The procedure, risks, benefits, and alternatives of stereotactic biopsy with clip pl acement were discussed with the patient, and verbal and written consent was obtained. A timeout was performed immediately prior to the procedure. PROCEDURE DESCRIPTION: With stereotactic guidance, aseptic technique, and lidocaine as a local anesth etic (1% lidocaine to anesthetize the skin and 1% lidocaine with epinephrine to anesthetize the deepe r tissues), the calcifications of concern in the right upper outer quadrant were sampled multiple teresita es with a 9-gauge vacuum-assisted biopsy needle ([employer]). The path of approach was lateral. Th e specimen radiograph demonstrates calcifications to be present in the samples. A metallic marker cl ip was placed at the biopsy site. Postprocedural mammograms were obtained to confirm clip placement. Direct pressure was applied at the biopsy site until hemostasis was achieved. The patient tolerate d the procedure without complication. She was given wound care instructions. COMPARISON: Comparison is made to exams dated: 10/03/2017 mammogram, 09/26/2017 mammogram, 12/11/2010 m ammogram, 12/05/2009 mammogram - [facility], 11/30/2008, and 10/22/2017 mammogram - [facility]. IMPRESSION: STEREOTACTIC GUIDED BIOPSY Stereotactic biopsy of indeterminate calcifications in the right upper outer quadrant, with clip plac ement. The patient will receive pathology results from her referring provider. Trisha Seaman M.D. ah/:10/22/2017 10:29:02 Attending Technologist: Shante Agee, [facility] Mix Crusher Operator: Caitie Flowers, RT(R)(M), [facility]
== END | disposition home or self-care (01) ==
LOC: C.MAMM 09:53
PROVIDERS: ATTEND Neuromusculoskeletal Medicine & OMM
DX: R92.0 Mammographic microcalcification found on diagnostic imaging of breast (principal); N60.31 Fibrosclerosis of right breast

== ENCOUNTER 2020-02-03 13:59 | Observation (INO) ==
[2020-02-03] MEDS ORDERED: ASPIRIN CHEW 324 MG PO STA (14:21)
[2020-02-03] MEDS ORDERED: ONDANSETRON INJ 2 MG/ML 2 ML VIAL IV STA (14:21)
[2020-02-03] MEDS ORDERED: MoRPHine SULFATE 4 MG/ML 1 ML CARP\\VIAL IV STA (14:21)
--- NOTE | 2020-02-03 14:26 | Emergency Department Note ---
History of Present Illness General Chief complaint: Chest Pain Stated complaint: CHEST PAIN Time Seen by Provider: 02/03/20 14:09 History of Present Illness Maximum Pain Intensity: 3 This is a 74-year-old female that presents to the emergency department via private vehicle with complaints "chest pain, shortness of breath". The patient notes that she has been experiencing a dull, pressure-like sensation in the center of the chest. This has been intermittent since last week but notes that over the past few days has been always present but waxes and wanes. She notes that when she exerts herself, specifically goes up steps or walks the pain seems to worsen. When she is not moving the pain seems to improve. She also feels increased shortness of breath. No fevers or chills. No nausea, vomiting, loss of taste or smell. She notes a mild chronic cough. She questions if she needed a Covid test secondary to the increased chest pain and therefore reached out to her professor of vegetable science office and notes that she was referred here for further evaluation and management. Current pain 05/03. Home Medications Medication Instructions Recorded Confirmed Type Symbicort 2 puff INHALATION BID PRN 08/08/18 12/03/19 History aspirin 81 mg PO QAM 08/08/18 12/03/19 History ibuprofen 200 mg tablet 200 mg PO PRN PRN tab 10/22/18 12/03/19 History cholecalciferol (vitamin D3) 1 ea PO DAILY 04/07/19 12/03/19 History multivitamin 1 tab PO DAILY 04/07/19 12/03/19 History multivitamin with minerals 1 tab PO DAILY 04/07/19 12/03/19 History nitroglycerin 0.4 mg sublingual 0.4 mg SUBLINGUAL Q5M PRN #25 tab 04/07/19 12/03/19 Rx tablet diltiazem HCl 180 mg 180 mg PO QAM #90 cap 07/28/19 12/03/19 Rx capsule,extended release 24 hr prednisone 20 mg tablet 20 mg PO DAILY #5 tab 09/01/19 12/03/19 Rx simvastatin 10 mg tablet 10 mg PO HS #90 tab 09/23/19 12/03/19 Rx famotidine 20 mg tablet 20 mg PO BID #60 tab 11/17/19 12/03/19 Rx fluticasone propionate 50 1 spray INTRANASAL BID PRN #18.2 ml 10/20/20 Rx mcg/actuation nasal spray,suspension levothyroxine 88 mcg tablet 88 mcg PO QAM #90 tab 12/30/19 Rx celecoxib [Celebrex] 200 mg PO DAILY #30 cap 02/04/20 Rx nitroglycerin [Nitrostat] 0.4 mg SUBLINGUAL UD PRN #25 tab 02/04/20 Rx Allergies Allergy/AdvReac Type Severity Reaction Status Date / Time buspirone Allergy rash Verified 12/03/19 08:38 Past Med/Surg History Medical History Abnormal mammogram Anemia Chronic pain Cystocele, midline Fatigue GERD without esophagitis Heart murmur Menopause Right asymmetrical SNHL Vasovagal syncope Vitamin D deficiency Surgical History S/P tubal ligation S/P wisdom tooth extraction Family History Grandmother Breast cancer Brother Myocardial infarction Father Lung cancer Other No significant family history Denies family history of Ovarian cancer Prostate cancer Colorectal cancer Social History Smoking Status: Never smoker Hx Alcohol Use: No Hx Substance Use: No Preferred Language: Serbian Communication Ability: Effective Visual Impairment: No Limitations Hearing Ability: Hard of Hearing Visitor Services Assistant Required: No Beliefs That Will Affect Care: None marital status: / Current Living Situation: Alone current occupational status: retired Feels Safe at Home: Yes Childhood Exposure to Second-Hand Smoke: Yes Dental Care, Regularly: No Physical Activity Frequency: Does not Exercise Seatbelt Use: always Sunscreen Use: Yes Assistive Devices: Denture - Upper and Glasses Review of Systems A total of 10 systems reviewed and were otherwise negative Physical Exam Vital Signs Vital Signs - 24 hr 02/03/20 14:01 02/03/20 14:19 02/03/20 14:20 Temperature 36.5 C Temperature Source Temporal Artery Scan Pulse Rate 91 H 73 75 Pulse Rate [Apical] Pulse Rate from SpO2 Sensor Respiratory Rate 20 10 L Respiratory Effort / Characteristics Respiratory Depth Blood Pressure 160/81 H Blood Pressure [Right Arm] Blood Pressure Mean 107 Blood Pressure Mean [Right Arm] Pulse Oximetry 96 Oxygen Delivery Method Room Air Room Air Room Air Sepsis Recent Fever Within 48 Hours No Sepsis New/Unexplained Change in Mental Status No Sepsis Action Taken by Nursing No Action Required 02/03/20 14:30 02/03/20 14:40 02/03/20 14:50 Temperature Temperature Source Pulse Rate 67 69 72 Pulse Rate [Apical] Pulse Rate from SpO2 Sensor Respiratory Rate 12 17 Respiratory Effort / Characteristics Respiratory Depth Blood Pressure Blood Pressure [Right Arm] Blood Pressure Mean Blood Pressure Mean [Right Arm] Pulse Oximetry Oxygen Delivery Method Room Air Room Air Room Air Sepsis Recent Fever Within 48 Hours Sepsis New/Unexplained Change in Mental Status Sepsis Action Taken by Nursing 02/03/20 15:00 02/03/20 15:06 02/03/20 15:10 Temperature Temperature Source Pulse Rate 61 64 73 Pulse Rate [Apical] 61 Pulse Rate from SpO2 Sensor 64 Respiratory Rate 12 10 L 12 Respiratory Effort / Characteristics Non-Labored Respiratory Depth Normal Blood Pressure 126/67 Blood Pressure [Right Arm] 126/67 Blood Pressure Mean 77 Blood Pressure Mean [Right Arm] 86 Pulse Oximetry 98 Oxygen Delivery Method Room Air Room Air Room Air Sepsis Recent Fever Within 48 Hours Sepsis New/Unexplained Change in Mental Status Sepsis Action Taken by Nursing 02/03/20 15:20 02/03/20 15:30 02/03/20 15:31 Temperature Temperature Source Pulse Rate 67 60 59 L Pulse Rate [Apical] Pulse Rate from SpO2 Sensor 65 60 60 Respiratory Rate 12 10 L 10 L Respiratory Effort / Characteristics Respiratory Depth Blood Pressure 123/72 Blood Pressure [Right Arm] Blood Pressure Mean 89 Blood Pressure Mean [Right Arm] Pulse Oximetry 95 95 94 Oxygen Delivery Method Room Air Room Air Room Air Sepsis Recent Fever Within 48 Hours Sepsis New/Unexplained Change in Mental Status Sepsis Action Taken by Nursing 02/03/20 15:40 02/03/20 15:50 02/03/20 16:03 Temperature Temperature Source Pulse Rate 55 L 58 L 82 Pulse Rate [Apical] Pulse Rate from SpO2 Sensor 56 L 57 L Respiratory Rate 13 Respiratory Effort / Characteristics Respiratory Depth Blood Pressure Blood Pressure [Right Arm] Blood Pressure Mean Blood Pressure Mean [Right Arm] Pulse Oximetry 95 98 Oxygen Delivery Method Room Air Room Air Room Air Sepsis Recent Fever Within 48 Hours Sepsis New/Unexplained Change in Mental Status Sepsis Action Taken by Nursing 02/03/20 16:10 02/03/20 16:20 02/03/20 16:30 Temperature Temperature Source Pulse Rate 65 59 L 61 Pulse Rate [Apical] Pulse Rate from SpO2 Sensor 63 60 61 Respiratory Rate 13 17 Respiratory Effort / Characteristics Respiratory Depth Blood Pressure 144/78 H Blood Pressure [Right Arm] Blood Pressure Mean 107 Blood Pressure Mean [Right Arm] Pulse Oximetry 99 98 99 Oxygen Delivery Method Room Air Room Air Room Air Sepsis Recent Fever Within 48 Hours Sepsis New/Unexplained Change in Mental Status Sepsis Action Taken by Nursing 02/03/20 16:31 02/03/20 16:40 02/03/20 16:50 Temperature Temperature Source Pulse Rate 58 L 57 L 58 L Pulse Rate [Apical] Pulse Rate from SpO2 Sensor 58 L 58 L 58 L Respiratory Rate 12 11 L 12 Respiratory Effort / Characteristics Respiratory Depth Blood Pressure Blood Pressure [Right Arm] Blood Pressure Mean Blood Pressure Mean [Right Arm] Pulse Oximetry 98 98 98 Oxygen Delivery Method Room Air Room Air Room Air Sepsis Recent Fever Within 48 Hours Sepsis New/Unexplained Change in Mental Status Sepsis Action Taken by Nursing 02/03/20 17:00 02/03/20 17:01 02/03/20 17:10 Temperature Temperature Source Pulse Rate 59 L 53 L 62 Pulse Rate [Apical] Pulse Rate from SpO2 Sensor 59 L 54 L 61 Respiratory Rate 10 L 10 L 10 L Respiratory Effort / Characteristics Respiratory Depth Blood Pressure 124/66 Blood Pressure [Right Arm] Blood Pressure Mean 96 Blood Pressure Mean [Right Arm] Pulse Oximetry 96 98 97 Oxygen Delivery Method Room Air Room Air Room Air Sepsis Recent Fever Within 48 Hours Sepsis New/Unexplained Change in Mental Status Sepsis Action Taken by Nursing 02/03/20 17:20 02/03/20 17:30 02/03/20 17:31 Temperature Temperature Source Pulse Rate 55 L 73 75 Pulse Rate [Apical] Pulse Rate from SpO2 Sensor 56 L 77 76 Respiratory Rate 10 L 15 15 Respiratory Effort / Characteristics Respiratory Depth Blood Pressure 168/89 H Blood Pressure [Right Arm] Blood Pressure Mean 108 Blood Pressure Mean [Right Arm] Pulse Oximetry 98 99 98 Oxygen Delivery Method Room Air Room Air Room Air Sepsis Recent Fever Within 48 Hours Sepsis New/Unexplained Change in Mental Status Sepsis Action Taken by Nursing 02/03/20 17:40 02/03/20 17:50 02/03/20 18:00 Temperature Temperature Source Pulse Rate 79 74 74 Pulse Rate [Apical] Pulse Rate from SpO2 Sensor 77 78 72 Respiratory Rate 17 21 21 Respiratory Effort / Characteristics Respiratory Depth Blood Pressure Blood Pressure [Right Arm] Blood Pressure Mean Blood Pressure Mean [Right Arm] Pulse Oximetry 99 98 98 Oxygen Delivery Method Room Air Room Air Room Air Sepsis Recent Fever Within 48 Hours Sepsis New/Unexplained Change in Mental Status Sepsis Action Taken by Nursing 02/03/20 18:10 02/03/20 18:20 02/03/20 18:30 Temperature Temperature Source Pulse Rate 69 72 65 Pulse Rate [Apical] Pulse Rate from SpO2 Sensor 71 70 64 Respiratory Rate 14 16 12 Respiratory Effort / Characteristics Respiratory Depth Blood Pressure 118/76 Blood Pressure [Right Arm] Blood Pressure Mean 97 Blood Pressure Mean [Right Arm] Pulse Oximetry 98 98 97 Oxygen Delivery Method Room Air Room Air Sepsis Recent Fever Within 48 Hours Sepsis New/Unexplained Change in Mental Status Sepsis Action Taken by Nursing VITAL SIGNS - Vital signs and nursing notes were reviewed. Stable and afebrile. GENERAL - 74-year-old female appearing her stated age who is in no acute distress. Communicates well with provider and answers questions appropriately. SKIN - Without rashes. HEAD - NC/AT. EYES - PERRL with EOMI bilaterally. Sclera anicteric. EARS - No deformities of external structures noted on gross examination bilaterally. NOSE - Midline and without cyanosis. No epistaxis or purulent drainage noted. MOUTH/OROPHARYNX - Without perioral cyanosis. NECK - Neck with FROM. No nuchal rigidity. LUNGS - Chest wall symmetric without accessory muscle use, intercostals retractions, or central cyanosis. Normal vesicular breath sounds CTA B/L. No wheezes, rales, or rhonchi appreciated. CARDIAC - RRR with S1/S2. No murmur, rubs, or gallops appreciated. EXTREMITIES - No clubbing or peripheral cyanosis. No pretibial edema present. +5/5 strength noted in UE/LE bilaterally. NEUROLOGIC - Cranial nerves II through XII grossly intact. PSYCH - A&O, and cooperates fully with examiner. Pt is very pleasant and interacts well with examiner. Course Administered Medications Discontinued Medications Acetaminophen (Acetaminophen 325 Mg Tab) 650 mg PO Q4H PRN PRN Reason: Pain or Fever Stop: 03/04/20 20:28 Last Admin: 02/03/20 21:48 Dose: 650 mg Documented by: [id number] Aspirin (Aspirin Chew 324 Mg) 324 mg PO NOW STA Stop: 02/03/20 14:22 Last Admin: 02/03/20 15:06 Dose: 324 mg Documented by: [id number] Aspirin (Aspirin 81 Mg Ectab) 81 mg PO QAM VALENTÍN Stop: 03/05/20 08:59 Last Admin: 02/04/20 08:24 Dose: 81 mg Documented by: [id number] Diltiazem HCl (Diltiazem Hcl 180 Mg Capcr) 180 mg PO QAM VALENTÍN Stop: 03/05/20 08:59 Last Admin: 02/04/20 08:24 Dose: 180 mg Documented by: [id number] Famotidine (Famotidine 20 Mg Tab) 20 mg PO BID VALENTÍN Stop: 03/04/20 20:59 Last Admin: 02/04/20 08:24 Dose: 20 mg Documented by: [id number] Admin: 02/03/20 21:48 Dose: 20 mg Documented by: [id number] Levothyroxine Sodium (Levothyroxine Sodium 88 Mcg Tablet) 88 mcg PO DAILYBB VALENTÍN Stop: 03/05/20 06:29 Last Admin: 02/04/20 05:56 Dose: 88 mcg Documented by: [id number] Morphine Sulfate (Morphine Sulfate 4 Mg/Ml 1 Ml Carp\\Vial) 4 mg IV NOW STA Stop: 02/03/20 14:22 Last Admin: 02/03/20 15:06 Dose: 4 mg Documented by: [id number] Multivitamins (Multivitamin Tab) 1 tab PO DAILY VALENTÍN Stop: 03/05/20 08:59 Last Admin: 02/04/20 08:24 Dose: 1 tab Documented by: [id number] Multivitamins/Minerals (Cerovite Adv Formula Tab) 1 tab PO DAILY VALENTÍN Stop: 03/05/20 08:59 Last Admin: 02/04/20 08:24 Dose: 1 tab Documented by: [id number] Ondansetron HCl (Ondansetron Inj 2 Mg/Ml 2 Ml Vial) 4 mg IV NOW STA Stop: 02/03/20 14:22 Last Admin: 02/03/20 15:06 Dose: 4 mg Documented by: [id number] Simvastatin (Simvastatin 10 Mg Tab) 10 mg PO HS [facility] Stop: 03/04/20 20:59 Last Admin: 02/03/20 21:48 Dose: 10 mg Documented by: [id number] Vitamin D (Cholecalciferol 1,000 Units 25 Mcg Tab) 1,000 units PO DAILY VALENTÍN Stop: 03/05/20 08:59 Last Admin: 02/04/20 08:24 Dose: 1,000 units Documented by: [id number] Medical Decision Making Laboratory Data Result diagrams: 02/04/20 02:45 02/04/20 02:45 Lab Results 02/03/20 02/03/20 02/03/20 Range/Units 14:49 14:49 14:49 WBC 7.11 (4.8-10.8) K/uL RBC 3.64 L (4.2-5.4) M/uL Hgb 11.5 L (12.0-16.0) g/dL Hct 34.5 L (37-47) % MCV 94.8 (80-100) fL MCH 31.6 (25-34) pg MCHC 33.3 (32-36) g/dL RDW Std Deviation 50.3 H (36.4-46.3) fL RDW Coeff of Alen 14.5 (11.5-14.5) % Plt Count 260 (130-400) K/uL MPV 10.4 (7.4-10.4) fL Immature Gran % (Auto) 0.0 % Neut % (Auto) 67.8 % Lymph % (Auto) 23.5 % Mcdonough % (Auto) 6.2 % Eos % (Auto) 2.1 % Baso % (Auto) 0.4 % Neut # (Auto) 4.82 (1.4-6.5) K/uL Lymph # (Auto) 1.67 (1.2-3.4) K/uL Mcdonough # (Auto) 0.44 (0.11-0.59) K/uL Eos # (Auto) 0.15 (0-0.5) K/uL Baso # (Auto) 0.03 (0-0.2) K/uL Immature Gran # (Auto) 0.00 (0.00-0.02) K/uL PT 10.9 (9.0-12.0) Seconds INR 1.0 (0.9-1.1) APTT 27.6 (21.0-31.0) Seconds PTT Ratio 1.0 Sodium 137 (136-145) mmol/L Potassium 3.8 (3.5-5.1) mmol/L Chloride 107 (98-107) mmol/L Carbon Dioxide 23 (21-32) mmol/L Anion Gap 7.0 (3-11) BUN 17 (7-18) mg/dl Creatinine 0.99 (0.6-1.2) mg/dl Est Cr Clr Drug Dosing 50.5 ml/min Est GFR ( Amer) 65.1 Est GFR (Non-Af Amer) 56.1 BUN/Creatinine Ratio 17.4 (10-20) Glucose 157 H (70-99) mg/dl Calcium 9.6 (8.5-10.1) mg/dl Magnesium 2.2 (1.8-2.4) mg/dl Total Bilirubin 0.4 (0.2-1) mg/dl AST 23 (15-37) U/L ALT 23 (12-78) U/L Alkaline Phosphatase 69 (45-117) U/L Troponin I < 0.015 (0-0.045) ng/ml Total Protein 8.9 H (6.4-8.2) gm/dl Albumin 4.3 (3.4-5.0) gm/dl Globulin 4.6 H (2.5-4.0) gm/dl Albumin/Globulin Ratio 0.9 (0.9-2) Lipase 98 (73-393) U/L TSH 6.080 H (0.300-4.500) uIu/ml Free T4 1.03 (0.8-1.6) ng/dl SARS-CoV-2 Ag (Rapid) (Negative) 02/03/20 Range/Units 16:54 WBC (4.8-10.8) K/uL RBC (4.2-5.4) M/uL Hgb (12.0-16.0) g/dL Hct (37-47) % MCV (80-100) fL MCH (25-34) pg MCHC (32-36) g/dL RDW Std Deviation (36.4-46.3) fL RDW Coeff of Alen (11.5-14.5) % Plt Count (130-400) K/uL MPV (7.4-10.4) fL Immature Gran % (Auto) % Neut % (Auto) % Lymph % (Auto) % Mcdonough % (Auto) % Eos % (Auto) % Baso % (Auto) % Neut # (Auto) (1.4-6.5) K/uL Lymph # (Auto) (1.2-3.4) K/uL Mcdonough # (Auto) (0.11-0.59) K/uL Eos # (Auto) (0-0.5) K/uL Baso # (Auto) (0-0.2) K/uL Immature Gran # (Auto) (0.00-0.02) K/uL PT (9.0-12.0) Seconds INR (0.9-1.1) APTT (21.0-31.0) Seconds PTT Ratio Sodium (136-145) mmol/L Potassium (3.5-5.1) mmol/L Chloride (98-107) mmol/L Carbon Dioxide (21-32) mmol/L Anion Gap (3-11) BUN (7-18) mg/dl Creatinine (0.6-1.2) mg/dl Est Cr Clr Drug Dosing ml/min Est GFR ( Amer) Est GFR (Non-Af Amer) BUN/Creatinine Ratio (10-20) Glucose (70-99) mg/dl Calcium (8.5-10.1) mg/dl Magnesium (1.8-2.4) mg/dl Total Bilirubin (0.2-1) mg/dl AST (15-37) U/L ALT (12-78) U/L Alkaline Phosphatase (45-117) U/L Troponin I (0-0.045) ng/ml Total Protein (6.4-8.2) gm/dl Albumin (3.4-5.0) gm/dl Globulin (2.5-4.0) gm/dl Albumin/Globulin Ratio (0.9-2) Lipase (73-393) U/L TSH (0.300-4.500) uIu/ml Free T4 (0.8-1.6) ng/dl SARS-CoV-2 Ag (Rapid) Negative (Negative) Imaging Data Radiologist's Impression: XR chest 1V portable CLINICAL HISTORY: exertional chest pain COMPARISON STUDY: Chest radiograph August 08, 2018. FINDINGS: Patient is mildly rotated. There is no pneumothorax or pleural effusion. There is no consolidation. Mild cardiomegaly is unchanged. Pulmonary vascularity is normal. The appearance of the chest is unchanged. IMPRESSION: No acute cardiopulmonary findings. No change in appearance of the chest. ACT 112: Negative or not required by law. Electronically signed by: Jorge Garces M.D. 02/03/2020 3:08 PM MDM Narrative Patient was seen and evaluated as above in room D7 review was performed of n juventinoing notes and vital signs. I did review pertinent previous visits and patient history. After obtaining a thorough history and physical examination the above work up was performed. She presents to us today with exertional chest pain and states that although she does have a underlying history of Prinzmetal's angina she notes that this feels different and worse. This is the worst chest pain she has ever felt thus far. She also notes that it is a pressure-like sensation and is not sharp. It seems to be worse when she is moving. It is better with rest. She denies any fevers or chills. She is currently being seen during the COVID- 19 pandemic. EKG was obtained on arrival and reveals normal sinus rhythm at a rate of 76 bpm. T WI V1. No ST elevation. No ST depression. QTc 436. She w as given aspirin, morphine and Zofran. White blood cell count normal. Hemoglobin mildly low at 11.5. PT and INR within normal limits. Glucose mildly elevated at 157. No kidney or liver failure. Troponin x1. TSH mildly elevated at 6.08 with a free T4 that is normal. Given the patient presentation it was felt reasonable to discuss with attending physician as well as the on-call professor of vegetable science, Dr. Howe. We reviewed the case/presentation as well as findings here. Given the patient noting this is the worst chest pain she has had and is somewhat different from her previous chest pain, is exertional in nature with associated worsening dyspnea, it is felt that further evaluation here would be a benefit to the patient. Patient happy with plan of care and amenable to staying. After obtaining consent I also spoke to the patient's daughter. Case discussed with the hospitalist. Please refer to further documentation regarding her stay. A urine sample was submitted after the patien t was taken upstairs as an inpatient, and I did let the nighttime hospitalist know about the urine sample result. An order was placed for continuous cardiac monitoring. The monitor shows a rate of 62 with sinus rhythm. I attest that I have personally reviewed the patient medication list. GCS: 15 In the evaluation and treatment of this patient, the following differential diagnoses were considered: OK, ASC, Dysrhythmia, Angina, Mediastinitis, GERD, Esophagitis, PE, Pneumonia, Bronchitis, Costochondritis, Rib Fracture, Zoster. Impression & Plan Chest pain Discharge Plan Visit Data Chief Complaint: Chest Pain Stated Complaint: CHEST PAIN ED Provider: Manohar Hernandez ED Midlevel Provider: Steven Powell Discharge Problem: Chest pain Patient Disposition: Admitted As Inpatient Condition: Good Discharge Instructions Interventions: ED Discharge Assessment Last Done: 02/03/20 19:52
[2020-02-03 15:03] LABS: Basophils # (auto) 0.03 K/uL (0-0.2); Basophils % (auto) 0.4 %; Eosinophils # (auto) 0.15 K/uL (0-0.5); Eosinophils % (auto) 2.1 %; Hematocrit (blood only) 34.5 % (37-47); Hemoglobin 11.5 g/dL (12.0-16.0); Lymphocytes # (auto) 1.67 K/uL (1.2-3.4); Lymphocytes % (auto) 23.5 %; Mean Corpuscular Hemoglobin 31.6 pg (25-34); Mean Corpuscular Hgb Conc 33.3 g/dL (32-36); Mean Corpuscular Volume 94.8 fL (80-100); Mean Platelet Volume 10.4 fL (7.4-10.4); Monocytes # (auto) 0.44 K/uL (0.11-0.59); Monocytes % (auto) 6.2 %; Neutrophils # (auto) 4.82 K/uL (1.4-6.5); Neutrophils % (auto) 67.8 %; Platelet Count 260 K/uL (130-400); RDW Coefficient of Variation 14.5 % (11.5-14.5); RDW Standard Deviation 50.3 fL (36.4-46.3); Red Blood Count 3.64 M/uL (4.2-5.4); White Blood Count 7.11 K/uL (4.8-10.8)
--- NOTE | 2020-02-03 15:09 | XRay Report ---
XR chest 1V portable CLINICAL HISTORY: exertional chest pain COMPARISON STUDY: Chest radiograph August 08, 2018. FINDINGS: Patient is mildly rotated. There is no pneumothorax or pleural effusion. There is no consol idation. Mild cardiomegaly is unchanged. Pulmonary vascularity is normal. The appearance of the chest is unchanged. IMPRESSION: No acute cardiopulmonary findings. No change in appearance of the chest. ACT 112: Negative or not required by law. Electronically signed by: Jorge Garces M.D. 02/03/2020 3:08 PM
[2020-02-03 15:14] LABS: Partial Thromboplastin Time 27.6 Seconds (21.0-31.0); Prothrombin Time 10.9 Seconds (9.0-12.0)
[2020-02-03 15:34] LABS: Albumin Level 4.3 gm/dl (3.4-5.0); Aspartate Aminotransferase 23 U/L (15-37); BUN Creatinine Ratio 17.4 (10-20); Bilirubin,Total 0.4 mg/dl (0.2-1); Blood Urea Nitrogen 17 mg/dl (7-18); Calcium 9.6 mg/dl (8.5-10.1); Carbon Dioxide 23 mmol/L (21-32); Chloride 107 mmol/L (98-107); Creatinine Clr Calc Pharmacy 50.5 ml/min; Est GFR (African American) 65.1; Est GFR (Non-African American) 56.1; Glucose 157 mg/dl (70-99); Lipase 98 U/L (73-393); Magnesium 2.2 mg/dl (1.8-2.4); Potassium 3.8 mmol/L (3.5-5.1); Sodium 137 mmol/L (136-145)
[2020-02-03 15:43] LABS: Alanine Aminotransferase 23 U/L (12-78); Albumin Globulin Ratio 0.9 (0.9-2); Alkaline Phosphatase 69 U/L (45-117); Globulin 4.6 gm/dl (2.5-4.0); Total Protein 8.9 gm/dl (6.4-8.2); Troponin I < 0.015 ng/ml (0-0.045)
[2020-02-03 16:06] LABS: T4 Free Thyroxine 1.03 ng/dl (0.8-1.6)
--- NOTE | 2020-02-03 18:26 | History & Physical Report ---
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 Chest pain Admit to med telemetry EKG on arrival shows Normal sinus rhythm, no acute ischemic changes or ST elevations noted. When compared with ECG of 08-AUG-2018 no significant change was found. Troponin on admission negative, will trend every 6 hours x2 Morphine and nitroglycerin ordered as needed chest pain Make patient n.p.o. for possible cardiac intervention tomorrow Hemoglobin A1c and fasting lipid panel in a.m. Cardiology (Dr. Howe) was spoken to by ED provider who recommended patient be admitted for chest pain rule out and likely stress echo in a.m. DSE ordered as this is what Patient aspirin initiated. Continue medical management with ASA/statin as below HTN/hypercholesterolemia Continue diltiazem ER 180 mg, simvastatin 10 mg Hypothyroidism TSH 6.080, free T4 WNL 1.03 on admission Continue levothyroxine 88 mcg GERD Continue famotidine 20 mg twice daily FEN/GI: Heart healthy diet. N.p.o. 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 Patient notes history of chest pain in the past but states that this does not feel similar noting that it is probably the worst such incidence. Onset was last week and worse this week. Described as ' stabs and jabs' with concurrent dull sternal pressure. Nonradiating, 4/10 on severity scale at worst. Episodes last about 15 minutes. 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 Alleviated with rest. Patient notes that usually with these episodes that she takes nitro, ibuprofen, diltiazem, and rest which usually helps. However this morning she tried all of these and it did not alleviate pain. Patient called into cardiology office who recommend patient be seen in ED for further evaluation. Patient notes associated increased shortness of breath worse than usual, feelings of palpitations during his episodes, mild edema in her ankles. Patient otherwise denies any syncope or presyncope, PND, orthopnea, diaphoresis. No fevers, chills, sweats, nausea, vomiting, diarrhea, lightheadedness or dizziness, abdominal pain, URI symptoms, known sick contacts or recent travel anywhere. Patient with no other acute concerns or complaints. Pertinent labs: Largely unremarkable CBC CMP. Initial troponin negative. Covid negative. TSH 6.080 EKG: Normal sinus rhythm, no acute ischemic changes or ST elevations noted. When compared with ECG of 08-AUG-2018 no significant change was found. Chest x-ray: No acute cardiopulmonary findings. No change in appearance of the chest. ER course: P.o. aspirin 324 mg, IV morphine 4 mg, IV Zofran 4 mg Allergies Allergy/AdvReac Type Severity Reaction Status Date / Time buspirone Allergy rash Verified 12/03/19 08:38 Home Medications Medication Instructions Recorded Confirmed Type Symbicort 2 puff INHALATION BID PRN 08/08/18 12/03/19 History aspirin 81 mg PO QAM 08/08/18 12/03/19 History ibuprofen 200 mg tablet 200 mg PO PRN PRN tab 10/22/18 12/03/19 History cholecalciferol (vitamin D3) 1 ea PO DAILY 04/07/19 12/03/19 History multivitamin 1 tab PO DAILY 04/07/19 12/03/19 History multivitamin with minerals 1 tab PO DAILY 04/07/19 12/03/19 History nitroglycerin 0.4 mg sublingual 0.4 mg SUBLINGUAL Q5M PRN #25 tab 04/07/19 12/03/19 Rx tablet diltiazem HCl 180 mg 180 mg PO QAM #90 cap 07/28/19 12/03/19 Rx capsule,extended release 24 hr prednisone 20 mg tablet 20 mg PO DAILY #5 tab 09/01/19 12/03/19 Rx simvastatin 10 mg tablet 10 mg PO HS #90 tab 09/23/19 12/03/19 Rx famotidine 20 mg tablet 20 mg PO BID #60 tab 11/17/19 12/03/19 Rx fluticasone propionate 50 1 spray INTRANASAL BID PRN #18.2 ml 12/14/19 Rx mcg/actuation nasal spray,suspension levothyroxine 88 mcg tablet 88 mcg PO QAM #90 tab 12/30/19 Rx celecoxib [Celebrex] 200 mg PO DAILY #30 cap 02/04/20 Rx nitroglycerin [Nitrostat] 0.4 mg SUBLINGUAL UD PRN #25 tab 02/04/20 Rx Past Med/Surg History Medical History Abnormal mammogram Anemia Chronic pain Cystocele, midline Fatigue GERD without esophagitis Heart murmur Menopause Right asymmetrical SNHL Vasovagal syncope Vitamin D deficiency Surgical History S/P tubal ligation S/P wisdom tooth extraction Family History Grandmother Breast cancer Brother Myocardial infarction Father Lung cancer Other No significant family history Denies family history of Ovarian cancer Prostate cancer Colorectal cancer Social History Smoking Status: Never smoker Hx Alcohol Use: No Hx Substance Use: No Preferred Language: Haitian Communication Ability: Effective Visual Impairment: No Limitations Hearing Ability: Hard of Hearing 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: No Beliefs That Will Affect Care: None marital status: / Current Living Situation: Alone current occupational status: retired Feels Safe at Home: Yes Childhood Exposure to Second-Hand Smoke: Yes Dental Care, Regularly: No Physical Activity Frequency: Does not Exercise Seatbelt Use: always Sunscreen Use: Yes Assistive Devices: Denture - Upper and Glasses Review of Systems Review of Systems: All systems reviewed & are unremarkable except as noted in HPI & below Physical Exam Constitutional: WD/WN, vitals as above Eyes: PERRL, conjunctivae normal, anicteric sclerae ENMT: Ears: + hearing impairment (Right ear) Respiratory: normal respiratory effort, lungs clear to auscultation Cardiovascular: RRR, no murmur, no edema Gastrointestinal (Abdomen): normal bowel sounds, soft, nontender, no hepatosplenomegaly Musculoskeletal: Pain somewhat reproducible to palpation of sternum Skin: no rashes, warm and dry Psychiatric: Orientation: alert and oriented x 3 Affect: + anxious affect Results & Data Results & Data ([facility]) Vital Signs (Past 12 Hours) Vital Signs Temp Pulse Pulse Resp BP BP Pulse Ox 02/03/20 17:40 79 17 99 02/03/20 17:31 75 15 168/89 H 98 02/03/20 17:30 73 15 99 02/03/20 17:20 55 L 10 L 98 02/03/20 17:10 62 10 L 97 02/03/20 17:01 53 L 10 L 98 02/03/20 17:00 59 L 10 L 124/66 96 02/03/20 16:50 58 L 12 98 02/03/20 16:40 57 L 11 L 98 02/03/20 16:31 58 L 12 98 02/03/20 16:30 61 17 144/78 H 99 02/03/20 16:20 59 L 98 02/03/20 16:10 65 13 99 02/03/20 16:03 82 02/03/20 15:50 58 L 98 02/03/20 15:40 55 L 13 95 02/03/20 15:31 59 L 10 L 94 02/03/20 15:30 60 10 L 123/72 95 02/03/20 15:20 67 12 95 02/03/20 15:10 73 12 02/03/20 15:06 64 61 10 L 126/67 126/67 98 02/03/20 15:00 61 12 02/03/20 14:50 72 17 02/03/20 14:40 69 12 02/03/20 14:30 67 02/03/20 14:20 75 10 L 02/03/20 14:19 73 02/03/20 14:01 36.5 C 91 H 20 160/81 H 96 Laboratory Results Laboratory Results - last 24 hr 02/03/20 02/03/20 02/03/20 14:49 14:49 14:49 WBC 7.11 RBC 3.64 L Hgb 11.5 L Hct 34.5 L MCV 94.8 MCH 31.6 MCHC 33.3 RDW Std Deviation 50.3 H RDW Coeff of Alen 14.5 Plt Count 260 MPV 10.4 Immature Gran % (Auto) 0.0 Neut % (Auto) 67.8 Lymph % (Auto) 23.5 Republic % (Auto) 6.2 Eos % (Auto) 2.1 Baso % (Auto) 0.4 Neut # (Auto) 4.82 Lymph # (Auto) 1.67 Republic # (Auto) 0.44 Eos # (Auto) 0.15 Baso # (Auto) 0.03 Immature Gran # (Auto) 0.00 PT 10.9 INR 1.0 APTT 27.6 PTT Ratio 1.0 Sodium 137 Potassium 3.8 Chloride 107 Carbon Dioxide 23 Anion Gap 7.0 BUN 17 Creatinine 0.99 Est Cr Clr Drug Dosing 50.5 Est GFR ( Amer) 65.1 Est GFR (Non-Af Amer) 56.1 BUN/Creatinine Ratio 17.4 Glucose 157 H Calcium 9.6 Magnesium 2.2 Total Bilirubin 0.4 AST 23 ALT 23 Alkaline Phosphatase 69 Troponin I < 0.015 Total Protein 8.9 H Albumin 4.3 Globulin 4.6 H Albumin/Globulin Ratio 0.9 Lipase 98 TSH 6.080 H Free T4 1.03 SARS-CoV-2 Ag (Rapid) 02/03/20 16:54 WBC RBC Hgb Hct MCV MCH MCHC RDW Std Deviation RDW Coeff of Alen Plt Count MPV Immature Gran % (Auto) Neut % (Auto) Lymph % (Auto) Republic % (Auto) Eos % (Auto) Baso % (Auto) Neut # (Auto) Lymph # (Auto) Republic # (Auto) Eos # (Auto) Baso # (Auto) Immature Gran # (Auto) PT INR APTT PTT Ratio Sodium Potassium Chloride Carbon Dioxide Anion Gap BUN Creatinine Est Cr Clr Drug Dosing Est GFR ( Amer) Est GFR (Non-Af Amer) BUN/Creatinine Ratio Glucose Calcium Magnesium Total Bilirubin AST ALT Alkaline Phosphatase Troponin I Total Protein Albumin Globulin Albumin/Globulin Ratio Lipase TSH Free T4 SARS-CoV-2 Ag (Rapid) Negative Code Status & VTE Plan Code Status DNI only Supervising Physician Co-Signing Physician Notes I personally saw and examined the patient. I verified all garcía points and agree with resident physician Dr. Puente with the following exceptions and/or additions: 74-year-old female with longstanding intermittent chest pain presents to the ER on the advice of cardiology for further work-up of new onset chest pain for the past 2 weeks. Constant, associated shortness of breath. Initially helped with ibuprofen but this is no longer helping. O/E reproducible chest pain and shortness of breath on palpation however she reports this is different than the pain she has been getting. HS1+2, no murmurs, Chest CTAB. A/P Atypical chest pain -Main concerning features exertional nature although I suspect this is more muscular when she is lifting objects. She is also extremely anxious which may be contributing towards her chest pain. Since this is different than her usual chest pain will work-up further on advice of her breaker off office with dobutamine stress echo tomorrow and consult her breaker off. Resident Activity Tracking Resident Involvement: Resident Care Provided Care Provided: Adult Hospital Medicine
[2020-02-03] MEDS ORDERED: ONDANSETRON INJ 2 MG/ML 2 ML VIAL IV PRN (20:29)
[2020-02-03] MEDS ORDERED: MoRPHine SULFATE 2 MG/ML CARP IV PRN (20:29)
[2020-02-03] MEDS ORDERED: FLUTICASONE PROPIONATE NA SPR 16 GM BTL PRN (20:29)
[2020-02-03] MEDS ORDERED: NITROGLYCERIN SL 0.4 MG/TAB TAB SL PRN (20:29)
[2020-02-03] MEDS ORDERED: ACETAMINOPHEN 325 MG TAB PO PRN (20:29)
[2020-02-03] MEDS ORDERED: ALUMINUM/MAGNESIUM SUSP 30 ML UDC PO PRN (20:29)
[2020-02-03] MEDS ORDERED: SIMVASTATIN 10 MG TAB PO SCH (21:00)
[2020-02-03] MEDS ORDERED: FLUTICASONE/VILANTEROL 100/25MCG 14 PUFFS/INHALER INH PRN (21:10)
[2020-02-03] MEDS: FAMOTIDINE 20 MG TAB PO SCH (21:48)
[2020-02-03 22:04] LABS: Appearance Urine Cloudy (Clear); Bilirubin Urine Negative (Negative); Blood Urine Negative (Negative); Color Urine Yellow; Epithelial Cell Urine Auto >30 /lpf (0-5); Glucose Urine UA Negative (Negative); Ketones Urine Negative (Negative); Leukocyte Esterase Urine 3+ (Negative); Nitrite Urine Negative (Negative); Protein Urine Negative (Negative); Specific Gravity Urine 1.016 (1.000-1.030); Urobilinogen Urine Negative (Negative); WBC Urine Automated >30 /hpf (0-5); pH Urine 5.5 (4.5-7.5)
[2020-02-03 22:15] LABS: RBC Urine Automated 0-4 /hpf (0-4)
[2020-02-03 22:16] LABS: Bacteria Urine Automated 1+ (Negative)
[2020-02-04 02:57] LABS: Basophils # (auto) 0.02 K/uL (0-0.2); Basophils % (auto) 0.3 %; Hematocrit (blood only) 33.4 % (37-47); Immature Granulocytes # (auto) 0.01 K/uL (0.00-0.02); Immature Granulocytes % (auto) 0.1 %; Lymphocytes # (auto) 2.07 K/uL (1.2-3.4); Mean Corpuscular Hemoglobin 31.3 pg (25-34); Mean Corpuscular Hgb Conc 32.9 g/dL (32-36); Mean Corpuscular Volume 95.2 fL (80-100); Mean Platelet Volume 10.2 fL (7.4-10.4); Monocytes # (auto) 0.48 K/uL (0.11-0.59); Monocytes % (auto) 7.2 %; Neutrophils % (auto) 58.4 %; Platelet Count 242 K/uL (130-400); RDW Coefficient of Variation 14.6 % (11.5-14.5); RDW Standard Deviation 51.1 fL (36.4-46.3); Red Blood Count 3.51 M/uL (4.2-5.4); White Blood Count 6.68 K/uL (4.8-10.8)
[2020-02-04 03:21] LABS: BUN Creatinine Ratio 19.8 (10-20); Calcium 8.4 mg/dl (8.5-10.1); Est GFR (African American) 68.4; Potassium 4.2 mmol/L (3.5-5.1)
[2020-02-04 05:43] LABS: Estimated Average Glucose 137 mg/dl; Hemoglobin A1C 6.4 % (4.5-5.6)
[2020-02-04] MEDS ORDERED: LEVOTHYROXINE SODIUM 88 MCG TABLET PO SCH (06:30)
--- NOTE | 2020-02-04 07:08 | Electrocardiogram Report ---
Test Reason : Blood Pressure : / mmHG Vent. Rate : 076 BPM Atrial Rate : 076 BPM P-R Int : 140 ms QRS Dur : 084 ms QT Int : 388 ms P-R-T Axes : 054 004 032 degrees QTc Int : 436 ms Normal sinus rhythm Normal ECG When compared with ECG of 08-AUG-2018 10:19, No significant change was found Confirmed by Dez Howe ([id number]) on 02/04/2020 7:07:41 AM Referred By: Confirmed By:Dez Howe
[2020-02-04] MEDS: FAMOTIDINE 20 MG TAB PO SCH (08:24)
[2020-02-04] MEDS ORDERED: CHOLECALCIFEROL 1,000 UNITS 25 MCG TAB PO SCH (09:00)
[2020-02-04] MEDS ORDERED: ASPIRIN 81 MG ECTAB PO SCH (09:00)
[2020-02-04] MEDS ORDERED: predniSONE 20 MG TAB PO SCH (09:00)
[2020-02-04] MEDS ORDERED: dilTIAZem HCL 180 MG CAPCR PO SCH (09:00)
[2020-02-04] MEDS ORDERED: CEROVITE ADV FORMULA TAB PO SCH (09:00)
[2020-02-04] MEDS ORDERED: MULTIVITAMIN TAB PO SCH (09:00)
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
--- NOTE | 2020-02-04 11:34 | Hospitalist Progress Note ---
Date of Service February 04, 2020 Assessment & Plan (1) Atypical chest pain: Troponin series negative. No acute EKG changes. Telemetry. Case discussed with cardiology who has seen the patient. We will start Celebrex for suspected chest wall etiology. She will be discharged home today and follow-up with cardiology on an outpatient basis for consideration for repeat outpatient stress testing Present on Admission?: Yes (2) Hypertension: Controlled with current medical management. No changes at this time Present on Admission?: Yes (3) Hypothyroidism: TSH is minimally elevated but free T4 level is normal. Continue current dosing Present on Admission?: Yes (4) Hypercholesterolemia: Treated with statin therapy Present on Admission?: Yes (5) GERD without esophagitis: PPI therapy Present on Admission?: Yes (6) Anxiety: Continue current medical management. Stable Disposition: Start Celebrex and discharge home today. Follow-up with cardiology on an outpatient basis. Present on Admission?: Yes Admission and Anticipated Discharge Date Admission Date: February 03, 2020 Subjective Vague atypical chest discomfort. Troponin series negative. No acute EKG changes. Normal left heart catheterization and 2014 and normal stress testing with imaging February 2018. Case discussed with cardiology. Her symptoms appear to be chest wall related. She will be treated with Celebrex and discharged home to follow-up on an outpatient basis. Review of Systems Review of Systems: Constitutional-no fever or chills ENT-no blurred vision, no double vision, no epistaxis, no sore throat Respiratory-no cough, no wheezing, no shortness of breath Cardiac-no palpitations, no syncope GI-no nausea, vomiting, diarrhea, melena, hematochezia -no urinary retention, no urinary incontinence, no dysuria, no hematuria Musculoskeletal-no joint pain, no muscle tenderness Skin-no bruising, no rashes, no pruritus Neuro-no isolated weakness, no paresthesia, no weakness Psych-no depression, no anxiety Physical Exam Physical Exam: General-alert and oriented x3, no fevers, no chills HEENT-head atraumatic and normocephalic, TMs intact bilaterally, pupils equal and reactive to light, extraocular muscles intact Neck-no lymphadenopathy or thyromegaly, trachea midline Chest-clear to auscultation percussion. No rales wheezing or rhonchi Cardiac-regular rate and rhythm, normal S1 and S2, no murmurs Abdomen-normal bowel sounds, nontender, no hepatosplenomegaly Extremities-no cyanosis, clubbing, or edema Neuro-cranial nerves II through XII intact, motor and sensory function within normal limits, strength symmetrical 5/5, no focal deficits Psych-normal affect, normal mood Results & Data Results & Data ([facility]) Vital Signs (Past 12 Hours) Vital Signs Temp Pulse Pulse Pulse Resp BP Pulse Ox 02/04/20 11:01 36.3 C L 62 64 17 115/73 96 02/04/20 09:44 60 02/04/20 09:04 36.3 C L 64 17 115/73 96 02/04/20 03:30 36.5 C 70 18 115/68 96 02/04/20 01:25 54 L Laboratory Results 02/04/20 02:45 02/04/20 02:45 PG Care Time/CCT Total # of Minutes Spent Total Time Spent with Patient: Total time spent is greater than 50% in coordination of care (as documented) at patient's floor/unit and/or counseling patient: Coding Level of Care Code 01970 Subseq Hosp Care Lvl 3 Diagnoses Atypical chest pain R07.89 Hypertension I10 Hypothyroidism E03.9 Hypercholesterolemia E78.00 GERD without esophagitis K21.9 Anxiety F41.9
--- NOTE | 2020-02-04 11:36 | Discharge Summary ---
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 Patient notes history of chest pain in the past but states that this does not feel similar noting that it is probably the worst such incidence. Onset was last week and worse this week. Described as ' stabs and jabs' with concurrent dull sternal pressure. Nonradiating, 4/10 on severity scale at worst. Episodes last about 15 minutes. 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 Alleviated with rest. Patient notes that usually with these episodes that she takes nitro, ibuprofen, diltiazem, and rest which usually helps. However this morning she tried all of these and it did not alleviate pain. Patient called into cardiology office who recommend patient be seen in ED for further evaluation. Patient notes associated increased shortness of breath worse than usual, feelings of palpitations during his episodes, mild edema in her ankles. Patient otherwise denies any syncope or presyncope, PND, orthopnea, diaphoresis. No fevers, chills, sweats, nausea, vomiting, diarrhea, lightheadedness or dizziness, abdominal pain, URI symptoms, known sick contacts or recent travel anywhere. Patient with no other acute concerns or complaints. Pertinent labs: Largely unremarkable CBC CMP. Initial troponin negative. Covid negative. TSH 6.080 EKG: Normal sinus rhythm, no acute ischemic changes or ST elevations noted. When compared with ECG of 08-AUG-2018 no significant change was found. Chest x-ray: No acute cardiopulmonary findings. No change in appearance of the chest. ER course: P.o. aspirin 324 mg, IV morphine 4 mg, IV Zofran 4 mg Principal Diagnosis Atypical chest pain Discharge Exam General-alert and oriented x3, no fevers, no chills HEENT-head atraumatic and normocephalic, TMs intact bilaterally, pupils equal and reactive to light, extraocular muscles intact Neck-no lymphadenopathy or thyromegaly, trachea midline Chest-clear to auscultation percussion. No rales wheezing or rhonchi Cardiac-regular rate and rhythm, normal S1 and S2, no murmurs Abdomen-normal bowel sounds, nontender, no hepatosplenomegaly Extremities-no cyanosis, clubbing, or edema Neuro-cranial nerves II through XII intact, motor and sensory function within normal limits, strength symmetrical 5/5, no focal deficits Psych-normal affect, normal mood Discharge Data Allergies Allergy/AdvReac Type Severity Reaction Status Date / Time buspirone Allergy rash Verified 12/03/19 08:38 Consultations 02/03/20 16:09 ED Decision to Admit Stat 02/03/20 20:29 Consult Cardiology Routine Hospital Course (1) Atypical chest pain: Troponin series negative. No acute EKG changes. Telemetry. Case discussed with cardiology who has seen the patient. We will start Celebrex for suspected chest wall etiology. She will be discharged home today and follow-up with cardiology on an outpatient basis for consideration for repeat outpatient stress testing (2) Hypertension: Controlled with current medical management. No changes at this time (3) Hypothyroidism: TSH is minimally elevated but free T4 level is normal. Continue current dosing (4) Hypercholesterolemia: Treated with statin therapy (5) GERD without esophagitis: PPI therapy (6) Anxiety: Continue current medical management. Stable Disposition: Start Celebrex and discharge home today. Follow-up with cardiology on an outpatient basis. (7) Chest pain: Total Time Total Time Spent Total Time Spent (In Minutes): 35 minutes Total Time Includes: Examination of the Patient, Discharge Planning, Medication Reconciliation and Communication With Other Providers Discharge Plan Discharge Items Patient Disposition: Home - Self-Care Reason For Visit: CHEST PAIN Discharge Diagnosis: Atypical chest pain Condition on Discharge: Good Non-emergency contact: Primary Care Provider and Solar Project Manager Call non-emergency contact if: you have any medication questions and your symptoms worsen Follow-up/Referrals: Patricio Quigley DO [Primary Care Provider] - 02/07/20 9:20 am Diet: Heart Healthy Addtl Attending Provider Instructions: start Celebrex 200mg daily for arthritis Pending Studies at Discharge: No Stand-Alone Forms: My [employer], Smoking Cessation Medications and DC Order Prescriptions: New nitroglycerin [Nitrostat] 0.4 mg Tablet, Sublingual 0.4 mg sublingual UD PRN (Reason: chest pain) Qty: 25 RF: 0 celecoxib [Celebrex] 200 mg capsule 200 mg PO DAILY Qty: 30 RF: 0 Continued diltiazem HCl 180 mg capsule,extended release 24hr 180 mg PO QAM Qty: 90 RF: 3 simvastatin 10 mg tablet 10 mg PO HS Qty: 90 RF: 1 famotidine 20 mg tablet 20 mg PO BID Qty: 60 RF: 2 fluticasone propionate 50 mcg/actuation spray,suspension 1 spray intranasal BID PRN (Reason: Congestion) Qty: 18.2 RF: 2 levothyroxine 88 mcg tablet 88 mcg PO QAM Qty: 90 RF: 1 prednisone 20 mg tablet 20 mg PO DAILY Qty: 5 RF: 0 ibuprofen 200 mg tablet 200 mg PO PRN PRNRF: 0 multivitamin [Daily Multi-Vitamin] Tablet 1 tab PO DAILY RF: 0 cholecalciferol (vitamin D3) 1 ea PO DAILY RF: 0 multivitamin with minerals [Hair,Skin and Nails] Tablet 1 tab PO DAILY RF: 0 nitroglycerin [Nitrostat] 0.4 mg tablet, sublingual 0.4 mg sublingual Q5M PRN (Reason: Chest Pain) Qty: 25 RF: 0 aspirin 81 mg Tablet,Chewable 81 mg PO QAM RF: 0 Symbicort 160-4.5 mcg/actuation HFA aerosol inhaler 2 puff inhalation BID PRN (Reason: Shortness Of Breath Or Wheezing) RF: 0 Discharge Orders: Discharge Order (Routine); Ordered 02/04/20 Ordered By: Julio C Rose/Other Patient Handouts: Prediabetes, 5 Steps for Eating Healthier, A1C Admission Data Admit Date/Time: 02/03/20 18:46 Attending Provider: Julio C Terrell Admit Provider: Jaiden Puente Primary Care Provider: Patricio Quigley Other Providers: Jeanmarie Cabrera ; Messi Riddle Other Interventions: Discharge Summary Assessment (RN) Last Done: 02/04/20 11:01 Coding Level of Care Code D/C Day Management >30 mins Diagnoses Atypical chest pain R07.89 Hypertension I10 Hypothyroidism E03.9 Hypercholesterolemia E78.00 GERD without esophagitis K21.9 Anxiety F41.9 Chest pain R07.9
--- NOTE | 2020-02-04 14:49 | Electrocardiogram Report ---
Test Reason : Blood Pressure : / mmHG Vent. Rate : 063 BPM Atrial Rate : 063 BPM P-R Int : 156 ms QRS Dur : 078 ms QT Int : 434 ms P-R-T Axes : 033 009 017 degrees QTc Int : 444 ms Normal sinus rhythm Normal ECG When compared with ECG of 03-FEB-2020 14:08, No significant change was found Confirmed by Jeanmarie Cabrera ([id number]) on 02/04/2020 2:49:17 PM Referred By: REFERRED SELF Confirmed By:Jeanmarie Cabrera
--- NOTE | 2020-02-04 17:20 | Billing Data ---
Date of Service February 03, 2020 Coding Level of Care Code 41984 OBS Care - Level 2
== END 2020-02-04 12:15 | disposition home or self-care (01) ==
LOC: ED 13:59 → 2W 13:59 → SUATTDRO 18:46 → 2W 19:52

== ENCOUNTER 2022-12-27 06:15 | Inpatient (IN) ==
[2022-12-27] MEDS ORDERED: SODIUM CHLORIDE 0.9% 1,000 ML IV ONE (06:17)
[2022-12-27] MEDS ORDERED: dilTIAZem HCl 5 MG/ML 5 ML VIAL IV STA (06:30)
[2022-12-27] MEDS ORDERED: dilTIAZem HCL 125 MG in DEXTROSE 5% 100 ML IV SCH ×2 (06:30→12:41)
[2022-12-27] MEDS ORDERED: STAT IV Infusion **Titration per Protocol STA ×2 (06:30→12:41)
[2022-12-27] MEDS ORDERED: ONDANSETRON INJ 2 MG/ML 2 ML VIAL IV STA (06:37)
[2022-12-27] MEDS ORDERED: ONDANSETRON INJ 2 MG/ML 2 ML VIAL ONE (06:38)
--- NOTE | 2022-12-27 06:41 | Emergency Department Note ---
Impression & Plan Atrial fibrillation with rapid ventricular response, Nausea & vomiting ED Provider Note HISTORY OF PRESENT ILLNESS: Patient is a 77-year-old female presenting with shakiness, dizziness and vomiting. Patient reports that just a few hours ago she started feeling very lightheaded and nauseous. She states that she lowered herself to the ground and began having shakes and vomiting. Denies any recent falls. Denies any recent head injury. Denies any significant abdominal pain. Denies any fevers. Denies any chest pain or shortness of breath. Denies any history of DVT or PE. Denies any history of cardiac stents. She is not on any anticoagulation. Denies any previous history of A-fib. Denies any recent sick contact exposures. ROS: as above PHYSICAL EXAM: Constitutional: Patient appears in no acute distress. Patient vomiting on examination HENT: Head: Normocephalic and atraumatic. Eyes: EOMI, PERRL Mouth/Throat: Mucous membranes moist. Neck: Trachea midline. Neck supple. Cardiovascular: Tachycardic with irregularly irregular rhythm. No murmurs, rubs or gallops. Intact distal pulses. Pulmonary/Chest: No respiratory distress. Breath sounds clear and equal bilaterally. No wheezes or rales. Abdominal: Abdomen soft, no tenderness, rebound or guarding. Musculoskeletal: No edema, tenderness or deformity noted. Skin: Warm and dry. No rash, erythema, pallor or cyanosis Psychiatric: Appropriate mood and affect for situation. Neurological: Alert and keenly responsive. CN II-XII grossly intact, moving all extremities equally and fully. MDM: - Vitals signs showed hypertensive and tachycardic - History obtained via patient. Patient presents with vomiting and dizziness. Patient reports that a few hours ago she was feeling very lightheaded and nauseous. She states that she lowered herself to the ground and began having shakiness in her upper extremities and vomiting. Denies any falls or head injury. Denies any abdominal pain. Denies any fevers. Denies any chest pain or shortness of breath. She reports she just feels very shaky at this time. Denies any history of A-fib. Denies any anticoagulation use. Denies any DVT or PE history. - Chronic conditions affecting care: hypothyroidism; HTN; HLD - Differential diagnoses include, but are not limited to: Dysrhythmia; ACS; electrolyte abnormality; pneumonia; UTI - Order placed for continuous cardiac monitoring. At this time, monitor showed rate of 126 bpm with irregular rhythm, per my interpretation. - External medical records reviewed. EMS run sheet was reviewed. Patient was vitally stable in route. No medications were given prehospital. Her heart rate was 96 prehospital. - EKG reviewed by myself showed atrial fibrillation with rapid ventricular rate. Rate 133 BPM. QTc 473. No acute ischemic changes. - Laboratory workup interpreted by myself showed normal WBC; stable electrolytes; normal troponin; normal lipase - CXR negative for pneumonia, per my interpretation - CT head wo contrast negative for acute intracranial pathology - Patient given 1L NS and 4 mg IV zofran for symptomatic management. - Cardizem bolus and drip ordered for Afib with RVR. - Discussion was had with social service manager about patient's case and need for admission - Hospitalist consulted for admission - Patient admitted to [facility] Hospitalist service for further evaluation and management. I provided 36 minutes of critical care time to this patient's care outside of billable procedures. ASSESSMENT AND PLAN: Diagnosis: Afib with RVR; nausea and vomiting Plan: admit Past Med/Surg History Medical History Anemia Asthma Chest pain Chronic pain Depression GERD (gastroesophageal reflux disease) Heart murmur Hypertension Hypolipidemia Hypothyroidism Hypothyroidism Menopause Osteopenia Right asymmetrical SNHL Vasovagal syncope Vitamin D deficiency Surgical History History of cardiac cath S/P colonoscopy S/P tubal ligation S/P wisdom tooth extraction Family History Grandmother Breast cancer Brother Family history of diabetes mellitus Myocardial infarction Family hx of colon cancer Father Lung cancer Sister Family history of diabetes mellitus Other No significant family history Denies family history of Ovarian cancer Prostate cancer Colorectal cancer Social History Smoking Status: Unknown if ever smoked Second Hand Exposure: No; Do You Dip or Chew Tobacco: No; Hx Alcohol Use: No Hx Substance Use: No Preferred Language: Afghan Communication Ability: Effective Visual Impairment: No Limitations Hearing Ability: Hard of Hearing 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 Beliefs That Will Affect Care: Mormon Mormon Beliefs: ORIENTAL ORTHODOX marital status: / Current Living Situation: Family Current Living Situation Comment: LIVES W/ GRANDSON current occupational status: retired How many Children do You have: 4 Feels Safe at Home: Yes Childhood Exposure to Second-Hand Smoke: Yes Diet: regular caffeine: Yes during the past year weight has: remained stable Dental Care, Regularly: No Physical Activity Frequency: Does not Exercise Seatbelt Use: always Sunscreen Use: Yes Assistive Devices: Denture - Upper and Glasses Allergies Allergies Allergy/AdvReac Type Severity Reaction Status Date / Time buspirone Allergy Unknown rash Verified 12/17/22 14:30 omeprazole Allergy Unknown rash Verified 12/17/22 14:30 Sertraline AdvReac GI Upset Uncoded 12/17/22 14:30 Home Meds Home Medications Medication Instructions Recorded Confirmed aspirin 81 mg chewable tablet 81 mg PO QAM 08/08/18 12/17/22 ibuprofen 200 mg tablet 400 mg PO HS 10/22/18 12/17/22 multivitamin with minerals 1 tab PO QAM 04/07/19 12/17/22 (Hair,Skin and Nails tablet) cholecalciferol (vitamin D3) 100 100 mcg PO QAM 09/10/21 12/17/22 mcg (4,000 unit) capsule Previous Rx's Medication Instructions Recorded fluticasone propionate 50 1 spray intranasal BID PRN 12/13/ mcg/actuation nasal Congestion #18.2 mL spray,suspension nitroglycerin 0.4 mg sublingual 0.4 mg sublingual UD PRN Chest 06/25/21 tablet (Nitrostat) Pain #20 tabs budesonide-formoterol HFA 160 2 puff inhalation BID PRN 01/08/22 mcg-4.5 mcg/actuation aerosol Shortness Of Breath Or Wheezing inhaler (Symbicort) #30.6 grams hydroxyzine HCl 25 mg tablet 25 mg PO TID PRN anxiety #60 tabs 08/06/22 levothyroxine 100 mcg tablet 100 mcg PO QAM #90 tabs 09/17/22 simvastatin 10 mg tablet 10 mg PO HS #90 tabs 09/17/22 diltiazem HCl 180 mg 180 mg PO QAM #90 caps 10/25/22 capsule,extended release 24 hr memantine 5 mg tablet (Namenda) 5 mg PO BID #60 tabs 11/15/22 mirtazapine 7.5 mg tablet 7.5 mg PO PM #30 tabs 11/21/22 phenazopyridine 200 mg tablet 200 mg PO TID 5 days #15 tabs 12/17/22 Results & Data (ED) Vital Signs Vital Signs - 24 hr 12/27/22 06:23 12/27/22 06:27 12/27/22 06:27 Temperature 36.8 C Temperature Source Oral Pulse Rate 119 H 136 H Pulse Rate [Finger] Pulse Rhythm Irregular Pulse Rhythm [Finger] Pulse Strength [Finger] Respiratory Rate 18 Respiratory Effort / Characteristics Non-Labored Spontaneous Respiratory Depth Normal Respiratory Pattern Regular Blood Pressure 139/111 H Blood Pressure [Right Arm] Blood Pressure Mean 120 Blood Pressure Mean [Right Arm] Blood Pressure Position Lying Blood Pressure Position [Right Arm] Pulse Oximetry 98 98 Oxygen Delivery Method Room Air Room Air Sepsis Recent Fever Within 48 Hours No Sepsis New/Unexplained Change in Mental Status N/A Sepsis Action Taken by Nursing No Action Required 12/27/22 06:30 Temperature Temperature Source Pulse Rate Pulse Rate [Finger] 142 H Pulse Rhythm Pulse Rhythm [Finger] Regular Pulse Strength [Finger] Normal Respiratory Rate 18 Respiratory Effort / Characteristics Non-Labored Spontaneous Respiratory Depth Normal Respiratory Pattern Regular Blood Pressure Blood Pressure [Right Arm] 129/93 Blood Pressure Mean Blood Pressure Mean [Right Arm] 105 Blood Pressure Position Blood Pressure Position [Right Arm] Sitting Pulse Oximetry 98 Oxygen Delivery Method Room Air Sepsis Recent Fever Within 48 Hours Sepsis New/Unexplained Change in Mental Status Sepsis Action Taken by Nursing Laboratory Data 12/27/22 06:24 12/27/22 06:24 Lab Results 12/27/22 Range/Units 06:24 WBC 6.76 (4.8-10.8) K/ul RBC 3.93 L (4.20-5.40) M/uL Hgb 12.1 (12.0-16.0) g/dl Hct 35.3 L (37.0-47.0) % MCV 89.8 (80.0-100.0) fL MCH 30.8 (25.0-34.0) pg MCHC 34.3 (32.0-36.0) g/dL RDW Std Deviation 44.8 (36.4-46.3) fL RDW Coeff of Alen 13.5 (11.5-14.5) % Plt Count 270 (130-400) K/uL MPV 10.3 (9.4-12.4) fL Immature Gran % (Auto) 0.4 % Neut % (Auto) 64.5 % Lymph % (Auto) 24.7 % Davison % (Auto) 6.8 % Eos % (Auto) 3.0 % Baso % (Auto) 0.6 % Neut # (Auto) 4.36 (1.40-6.50) K/uL Lymph # (Auto) 1.67 (1.20-3.40) K/uL Davison # (Auto) 0.46 (0.11-0.59) K/uL Eos # (Auto) 0.20 (0.00-0.50) K/uL Baso # (Auto) 0.04 (0.00-0.20) K/uL Immature Gran # (Auto) 0.03 (0.01-0.20) K/uL Sodium 137 (136-145) mmol/L Potassium 3.9 (3.5-5.1) mmol/L Chloride 108 H (98-107) mmol/L Carbon Dioxide 22 (21-32) mmol/L Anion Gap 7 (3-11) BUN 13 (6-23) mg/dl Creatinine 0.74 (0.6-1.2) mg/dl Est Cr Clr Drug Dosing 62.3 ml/min Est GFR ( Amer) 90.6 ml/min Est GFR (Non-Af Amer) 78.1 ml/min BUN/Creatinine Ratio 17.6 (10-20) Glucose 155 H (70-99(Fasting)) mg/dl Calcium 9.1 (8.6-10.3) mg/dl Magnesium 2.0 (1.7-2.4) mg/dl Total Bilirubin 0.4 (0.2-1.0) mg/dl AST 18 (13-39) U/L ALT 12 (7-52) U/L Alkaline Phosphatase 65 (34-104) U/L Troponin I High Sens 4.9 (0-14) pg/ml Total Protein 8.2 (6.0-8.3) gm/dl Albumin 4.0 (3.4-5.0) gm/dl Globulin 4.2 H (2.5-4.0) gm/dl Albumin/Globulin Ratio 1.0 (0.9-2) Lipase 18 (11-82) U/L Administered Medications Diltiazem HCl 125 mg/ Dextrose 125 mls @ 5 mls/hr IV .Q24H [facility]; Protocol Stop: 01/26/23 06:29 Last Admin: 12/27/22 07:11 Dose: 5 mg/hr, 5 mls/hr Documented By: ULYSSES Co-signed By: MES Discontinued Medications Diltiazem HCl (Diltiazem Hcl 5 Mg/Ml 5 Ml Vial) 10 mg IV NOW STA Stop: 12/27/22 06:31 Last Admin: 12/27/22 06:51 Dose: Not Given Documented By: NAW Sodium Chloride (Nss) 1,000 mls @ 999 mls/hr IV .Q1H1M ONE Stop: 12/27/22 07:17 Last Admin: 12/27/22 06:28 Dose: 999 mls/hr Documented By: BARRON Miscellaneous (Stat Iv Infusion Titration Per Protocol) 1 each N/A NOW STA Stop: 12/27/22 06:31 Last Admin: 12/27/22 07:11 Dose: Not Given Documented By: ULYSSES Ondansetron HCl (Ondansetron Inj 2 Mg/Ml 2 Ml Vial) 4 mg IV NOW STA Stop: 12/27/22 06:38 Last Admin: 12/27/22 06:41 Dose: 4 mg Documented By: BARRON Ondansetron HCl (Ondansetron Inj 2 Mg/Ml 2 Ml Vial) Confirm Administered Dose 4 mg .ROUTE .STK-MED ONE Stop: 12/27/22 06:39 Last Admin: 12/27/22 06:41 Dose: Not Given Documented By: BARRON Imaging Data Radiologist's Impression: Head CT 12/27/22 06:41 CT OF THE HEAD WITHOUT CONTRAST CLINICAL HISTORY: Dizziness. COMPARISON STUDY: MRI of the brain May 22, 2017. Head CT August 08, 2018. CT DOSE: 625.8 mGy.cm TECHNIQUE: Helical axial images of the head were obtained without IV contrast. Automated exposure control was utilized for the study. A dose lowering technique was utilized adhering to the principles of ALARA. FINDINGS: No acute intracranial hemorrhage, midline shift or mass effect is present. White matter hypodensities are similar to prior exam and favor small vessel disease. The ventricular system is unremarkable. The basal cisterns are patent. No extra-axial collections are present. There are no findings to suggest acute dural sinus thrombosis or acute territorial infarct. No significant calvarial abnormalities are present. Small right mastoid effusion is unchanged. There is mild sinus mucosal thickening and small air-fluid levels within the left sphenoid and maxillary sinuses. IMPRESSION: No acute intracranial findings. No change in appearance of the brain. ACT 112: Negative or not required by law. Electronically signed by: Jorge Garces M.D. 12/27/2022 7:23 AM Discharge Plan Visit Data Chief Complaint: Vomiting Stated Complaint: Vomiting, Nausea ED Provider: Vero Bennett Discharge Problem: Atrial fibrillation with rapid ventricular response, Nausea & vomiting Forms Stand Alone Forms: [facility] Prescriptions Prescriptions: No Action fluticasone propionate 50 mcg/actuation spray,suspension 1 spray intranasal BID PRN (Reason: Congestion) Qty: 18.2 2RF Symbicort 160-4.5 mcg/actuation HFA aerosol inhaler 2 puff inhalation BID PRN (Reason: Shortness Of Breath Or Wheezing) Qty: 30.6 1RF hydroxyzine HCl 25 mg tablet 25 mg PO TID PRN (Reason: anxiety) Qty: 60 5RF levothyroxine 100 mcg tablet 100 mcg PO QAM Qty: 90 1RF simvastatin 10 mg tablet 10 mg PO HS Qty: 90 1RF diltiazem HCl 180 mg capsule,extended release 24hr 180 mg PO QAM Qty: 90 3RF memantine [Namenda] 5 mg tablet 5 mg PO BID Qty: 60 2RF mirtazapine 7.5 mg tablet 7.5 mg PO PM Qty: 30 5RF nitroglycerin [Nitrostat] 0.4 mg tablet, sublingual 0.4 mg sublingual UD PRN (Reason: Chest Pain) Qty: 20 2RF ibuprofen 200 mg tablet 400 mg PO HS multivitamin with minerals [Hair,Skin and Nails] Tablet 1 tab PO QAM phenazopyridine 200 mg tablet 200 mg PO TID 5 Days Qty: 15 0RF aspirin 81 mg Tablet,Chewable 81 mg PO QAM cholecalciferol (vitamin D3) 100 mcg (4,000 unit) Capsule 100 mcg PO QAM Referrals Referrals: Patricio Quigley, [Primary Care Provider] -
[2022-12-27 06:55] LABS: Basophils # (auto) 0.04 K/uL (0.00-0.20); Basophils % (auto) 0.6 %; Hematocrit (blood only) 35.3 % (37.0-47.0); Hemoglobin 12.1 g/dl (12.0-16.0); Immature Granulocytes # (auto) 0.03 K/uL (0.01-0.20); Immature Granulocytes % (auto) 0.4 %; Lymphocytes # (auto) 1.67 K/uL (1.20-3.40); Lymphocytes % (auto) 24.7 %; Mean Corpuscular Hemoglobin 30.8 pg (25.0-34.0); Mean Corpuscular Hgb Conc 34.3 g/dL (32.0-36.0); Mean Corpuscular Volume 89.8 fL (80.0-100.0); Mean Platelet Volume 10.3 fL (9.4-12.4); Monocytes # (auto) 0.46 K/uL (0.11-0.59); Monocytes % (auto) 6.8 %; Neutrophils # (auto) 4.36 K/uL (1.40-6.50); Neutrophils % (auto) 64.5 %; Platelet Count 270 K/uL (130-400); RDW Coefficient of Variation 13.5 % (11.5-14.5); RDW Standard Deviation 44.8 fL (36.4-46.3); Red Blood Count 3.93 M/uL (4.20-5.40); White Blood Count 6.76 K/ul (4.8-10.8)
[2022-12-27 07:01] LABS: BUN Creatinine Ratio 17.6 (10-20); Bilirubin,Total 0.4 mg/dl (0.2-1.0); Calcium 9.1 mg/dl (8.6-10.3); Creatinine Clr Calc Pharmacy 62.3 ml/min; Est GFR (African American) 90.6 ml/min; Est GFR (Non-African American) 78.1 ml/min; Globulin 4.2 gm/dl (2.5-4.0); Potassium 3.9 mmol/L (3.5-5.1); Total Protein 8.2 gm/dl (6.0-8.3)
[2022-12-27 07:08] LABS: Troponin I High Sensitivity 4.9 pg/ml (0-14)
--- NOTE | 2022-12-27 07:25 | CT Scan Report ---
CT OF THE HEAD WITHOUT CONTRAST CLINICAL HISTORY: Dizziness. COMPARISON STUDY: MRI of the brain May 22, 2017. Head CT August 08, 2018. CT DOSE: 625.8 mGy.cm TECHNIQUE: Helical axial images of the head were obtained without IV contrast. Automated exposure con trol was utilized for the study. A dose lowering technique was utilized adhering to the principles o f ALARA. FINDINGS: No acute intracranial hemorrhage, midline shift or mass effect is present. White matter hyp odensities are similar to prior exam and favor small vessel disease. The ventricular system is unrema rkable. The basal cisterns are patent. No extra-axial collections are present. There are no findings to suggest acute dural sinus thrombosis or acute territorial infarct. No significant calvarial abnorm alities are present. Small right mastoid effusion is unchanged. There is mild sinus mucosal thickenin g and small air-fluid levels within the left sphenoid and maxillary sinuses. IMPRESSION: No acute intracranial findings. No change in appearance of the brain. ACT 112: Negative or not required by law. Electronically signed by: Jorge Garces M.D. 12/27/2022 7:23 AM
--- NOTE | 2022-12-27 07:42 | XRay Report ---
XR chest 1V portable HISTORY: lightheadedness COMPARISON: Chest 02/03/2020. FINDINGS: The lungs are clear. The cardiac silhouette remains mildly enlarged. There is a mildly tort uous thoracic aorta again noted. No pleural effusions. No pneumothorax. IMPRESSION: No significant change compared to the prior study. No acute process. ACT 112: Negative or not required by law. Electronically signed by: Anastacio Gomez M.D. 12/27/2022 7:41 AM
[2022-12-27 08:07] LABS: Influenza A virus by PCR Negative (Neg); Influenza B virus by PCR Negative (Neg); RSV by PCR Negative (Neg); SARS CoV2 RNA(COVID-19) Ceph NEGATIVE (Negative)
[2022-12-27] MEDS ORDERED: ENOXAPARIN 1 MG/KG SC SCH (09:00)
[2022-12-27 09:29] LABS: Thyroid Stimulating Hormone 0.012 uIu/ml (0.300-4.500)
[2022-12-27] MEDS ORDERED: POLYETHYLENE (MIRALAX) 17 GM PACK PO PRN (12:41)
[2022-12-27] MEDS ORDERED: ACETAMINOPHEN 325 MG TAB PO PRN (12:41)
[2022-12-27] MEDS ORDERED: MAGNESIUM HYDROXIDE SUSP 30 ML UDC PO PRN (12:41)
[2022-12-27] MEDS: SODIUM CHLORIDE 0.9% 1,000 ML IV SCH ×2 (13:45→22:52)
[2022-12-27] MEDS: LEVOTHYROXINE SODIUM 100 MCG TABLET PO SCH (13:47)
[2022-12-27] MEDS: ASPIRIN 81 MG CHEW PO SCH (13:47)
[2022-12-27] MEDS: PHENAZOPYRIDINE HCL 200 MG TAB PO SCH ×2 (13:48→20:53)
[2022-12-27] MEDS: FLUTICASONE/VILANTEROL 200/25MCG 14 PUFFS/INHALER INH SCH (13:48)
[2022-12-27] MEDS: ENOXAPARIN 80 MG/0.8 ML SYR SQ SCH ×2 (14:06→23:13)
--- NOTE | 2022-12-27 17:00 | History & Physical Report ---
Date of Service December 27, 2022 Assessment & Plan (1) Atrial fibrillation with rapid ventricular response: Plan: Patient was started on a Cardizem drip which I will continue Her [id number] score is 4 that she will be started on Lovenox therapeutic dose Plan to switch her to Eliquis upon discharge If rate control is not achieved, will consult cardiology Check TSH Check echocardiogram (2) Dementia: Plan: continue Namenda Patient has some word finding difficulty and memory issues, per family (3) Hypothyroid: Plan: check TSH Continue Synthroid (4) Pre-syncope: Plan: this was secondary to rapid A-fib (5) Nausea & vomiting: Plan: secondary to rapid A-fib Zofran as needed Plan DVT prophylaxis: Lovenox therapeutic dose CODE STATUS: DNR/DNI Admission and Anticipated Discharge Date Admission Date: December 27, 2022 History of Present Illness Chief Complaint: Shaky, dizzy, unsteady feet Primary Care Provider: Patricio Quigley DO Past medical history 1. Dementia 2. Depression 3. Hypothyroidism 4. Hyperlipidemia 5. Benign essential hypertension 6. Prediabetes History of presenting illness This is a 77-year-old female who presented to the emergency room with the above chief complaint. The patient stated that her dog needed to be let out. When she came back after letting her dog out, she started feeling shaky and dizzy and unsteady in her feet. She lowered herself to the ground. She then pounded on the wall to get attention. Her daughter came and found her on the floor. She called 911 and was brought into the emergency room. She was found to be in rapid atrial fibrillation. The patient did not hit her head. She did not have any chest pain. She was nauseous and was vomiting. She does not have a history of atrial fibrillation. In the emergency room, she had initial screening tests done that included a head CT, screening labs, troponins which were all normal. She was started on a Cardizem drip and was given IV Zofran. I was asked to admit this patient. When I met her, she was still complaining of some dizziness as she was still in rapid A-fib with a heart rate in the 1 teens to 130s. Allergies Allergy/AdvReac Type Severity Reaction Status Date / Time buspirone Allergy Unknown rash Verified 12/27/22 10:29 omeprazole Allergy Unknown rash Verified 12/27/22 10:29 Sertraline AdvReac GI Upset Uncoded 12/27/22 10:29 Home Medications Medication Instructions Recorded Confirmed Type ibuprofen 200 mg tablet 400 mg PO HS 10/22/18 12/27/22 History multivitamin with minerals 1 tab PO QAM 04/07/19 12/27/22 History (Hair,Skin and Nails tablet) fluticasone propionate 50 1 spray intranasal BID PRN 12/14/19 12/27/22 Rx mcg/actuation nasal Congestion #18.2 mL spray,suspension nitroglycerin 0.4 mg sublingual 0.4 mg sublingual UD PRN Chest 06/25/21 12/27/22 Rx tablet (Nitrostat) Pain #20 tabs cholecalciferol (vitamin D3) 100 100 mcg PO QAM 09/10/21 12/27/22 History mcg (4,000 unit) capsule budesonide-formoterol HFA 160 2 puff inhalation BID PRN 01/08/22 12/27/22 Rx mcg-4.5 mcg/actuation aerosol Shortness Of Breath Or Wheezing inhaler (Symbicort) #30.6 grams hydroxyzine HCl 25 mg tablet 25 mg PO TID PRN anxiety #60 tabs 08/06/22 12/27/22 Rx levothyroxine 100 mcg tablet 100 mcg PO QAM #90 tabs 09/17/22 12/27/22 Rx simvastatin 10 mg tablet 10 mg PO HS #90 tabs 09/17/22 12/27/22 Rx diltiazem HCl 180 mg 180 mg PO QAM #90 caps 10/25/22 12/27/22 Rx capsule,extended release 24 hr memantine 5 mg tablet (Namenda) 5 mg PO BID #60 tabs 11/15/22 12/27/22 Rx mirtazapine 7.5 mg tablet 7.5 mg PO PM #30 tabs 11/21/22 12/27/22 Rx phenazopyridine 200 mg tablet 200 mg PO TID 5 days #15 tabs 12/17/22 12/27/22 Rx Past Med/Surg History Medical History Hypothyroidism Hypolipidemia Hypertension Osteopenia Depression GERD (gastroesophageal reflux disease) Hypothyroidism Asthma WELL CONTROLLED W/ INHALER Hypertension Chest pain PRINZMETAL ANGINA-F/U DR NEMO MIDDLETON Vitamin D deficiency Vasovagal syncope ON OCC WHEN SHE GETS UP TOO FAST, NO RECENT ISSUES Right asymmetrical SNHL Menopause Hypothyroidism Hypercholesterolemia GERD without esophagitis Chronic pain BACK Anxiety Anemia HX Heart murmur HX A CHILD Surgical History S/P colonoscopy History of cardiac cath 2013-NO STENTS- FOLLOWS W/ DR MIDDLETON- 06/2021 S/P tubal ligation S/P wisdom tooth extraction Family History Grandmother Breast cancer Brother Family history of diabetes mellitus Myocardial infarction Family hx of colon cancer Father Lung cancer Sister Family history of diabetes mellitus Other No significant family history Denies family history of Ovarian cancer Prostate cancer Colorectal cancer Social History Smoking Status: Never smoker Second Hand Exposure: No; Do You Dip or Chew Tobacco: No; Hx Alcohol Use: No Hx Substance Use: No Preferred Language: Grenadian Communication Ability: Effective Visual Impairment: No Limitations Hearing Ability: Hard of Hearing Research Food Technologist Required: No Beliefs That Will Affect Care: None marital status: / Current Living Situation: Family Current Living Situation Comment: daughter and grandchildren live with her current occupational status: retired How many Children do You have: 4 Feels Safe at Home: Yes Safety Concerns: Feels Safe At This Time Childhood Exposure to Second-Hand Smoke: Yes Diet: regular caffeine: Yes during the past year weight has: remained stable Dental Care, Regularly: No Physical Activity Frequency: Does not Exercise Seatbelt Use: always Sunscreen Use: Yes Assistive Devices: None Review of Systems Review of Systems: All systems reviewed & are unremarkable except as noted in Subjective Physical Exam Physical Exam: General appearance: Awake, conversant, able to answer questions appropriately. AOx3. Pupils: Equally reactive to light and accommodation Neck: No masses, no thyromegaly Respiration: Clear to auscultation bilaterally. Normal effort Cardiovascular: S1-S2/ irregular rhythm fast rate. No murmur, rubs or gallop. No edema. Abdomen: Soft, nontender, nondistended. No hepatosplenomegaly Musculoskeletal: No clubbing, no cyanosis, normal range of motion Skin: No rashes, no nodules Neuro exam: Cranial nerves intact, sensation grossly intact Psychiatric: Patient has good judgment and insight. AOx3. Mood and affect appear normal Lymphatics: No cervical or axillary lymphadenopathy noted Results & Data Results & Data Vital Signs (Past 12 Hours) Vital Signs Temp Pulse Pulse Resp BP BP Pulse Ox 12/27/22 16:08 36.5 C 75 18 101/60 98 12/27/22 14:08 80 12/27/22 12:49 12/27/22 12:48 36.6 C 133 H 18 128/90 96 12/27/22 12:39 124 H 12/27/22 12:20 36.6 C 133 H 17 128/90 96 12/27/22 11:01 116 H 22 149/82 H 96 12/27/22 10:52 104 H 12/27/22 10:45 102 H 15 124/63 97 12/27/22 10:30 101 H 17 108/79 97 12/27/22 10:15 101 H 22 120/79 96 12/27/22 10:00 107 H 13 128/76 98 12/27/22 09:45 104 H 14 113/73 97 12/27/22 09:30 83 17 107/70 97 12/27/22 09:15 106 H 18 103/76 96 12/27/22 09:00 91 H 15 114/67 97 12/27/22 08:45 101 H 16 102/71 12/27/22 08:30 83 14 112/71 97 12/27/22 08:30 84 21 112/71 98 12/27/22 08:15 101 H 19 108/68 98 12/27/22 08:00 94 H 17 118/70 12/27/22 07:50 106 H 24 12/27/22 07:30 107 H 21 125/67 12/27/22 07:15 115 H 15 139/91 98 12/27/22 07:14 119 H 16 101/80 97 12/27/22 07:13 112 H 14 129/86 98 12/27/22 06:30 128 H 14 129/93 95 12/27/22 06:30 142 H 18 129/93 98 12/27/22 06:27 98 12/27/22 06:27 36.8 C 136 H 18 139/111 H 98 12/27/22 06:23 119 H O2 Del Method 12/27/22 16:08 Room Air 12/27/22 14:08 12/27/22 12:49 Room Air 12/27/22 12:48 Room Air 12/27/22 12:39 12/27/22 12:20 Room Air 12/27/22 11:01 Room Air 12/27/22 10:52 12/27/22 10:45 Room Air 12/27/22 10:30 Room Air 12/27/22 10:15 Room Air 12/27/22 10:00 Room Air 12/27/22 09:45 Room Air 12/27/22 09:30 Room Air 12/27/22 09:15 Room Air 12/27/22 09:00 Room Air 12/27/22 08:45 12/27/22 08:30 Room Air 12/27/22 08:30 Room Air 12/27/22 08:15 Room Air 12/27/22 08:00 12/27/22 07:50 12/27/22 07:30 12/27/22 07:15 12/27/22 07:14 12/27/22 07:13 Room Air 12/27/22 06:30 12/27/22 06:30 Room Air 12/27/22 06:27 Room Air 12/27/22 06:27 Room Air 12/27/22 06:23 Laboratory Results Lab Results 12/27/22 12/27/22 12/27/22 Range/Units 06:24 07:14 07:45 WBC 6.76 (4.8-10.8) K/ul RBC 3.93 L (4.20-5.40) M/uL Hgb 12.1 (12.0-16.0) g/dl Hct 35.3 L (37.0-47.0) % MCV 89.8 (80.0-100.0) fL MCH 30.8 (25.0-34.0) pg MCHC 34.3 (32.0-36.0) g/dL RDW Std Deviation 44.8 (36.4-46.3) fL RDW Coeff of Alen 13.5 (11.5-14.5) % Plt Count 270 (130-400) K/uL MPV 10.3 (9.4-12.4) fL Immature Gran % (Auto) 0.4 % Neut % (Auto) 64.5 % Lymph % (Auto) 24.7 % [place] % (Auto) 6.8 % Eos % (Auto) 3.0 % Baso % (Auto) 0.6 % Neut # (Auto) 4.36 (1.40-6.50) K/uL Lymph # (Auto) 1.67 (1.20-3.40) K/uL [place] # (Auto) 0.46 (0.11-0.59) K/uL Eos # (Auto) 0.20 (0.00-0.50) K/uL Baso # (Auto) 0.04 (0.00-0.20) K/uL Immature Gran # (Auto) 0.03 (0.01-0.20) K/uL Sodium 137 (136-145) mmol/L Potassium 3.9 (3.5-5.1) mmol/L Chloride 108 H (98-107) mmol/L Carbon Dioxide 22 (21-32) mmol/L Anion Gap 7 (3-11) BUN 13 (6-23) mg/dl Creatinine 0.74 (0.6-1.2) mg/dl Est Cr Clr Drug Dosing 62.3 ml/min Est GFR ( Amer) 90.6 ml/min Est GFR (Non-Af Amer) 78.1 ml/min BUN/Creatinine Ratio 17.6 (10-20) Glucose 155 H (70-99(Fasting)) mg/dl Lactate (0.4-2.0) mmol/L Calcium 9.1 (8.6-10.3) mg/dl Magnesium 2.0 (1.7-2.4) mg/dl Total Bilirubin 0.4 (0.2-1.0) mg/dl AST 18 (13-39) U/L ALT 12 (7-52) U/L Alkaline Phosphatase 65 (34-104) U/L Troponin I High Sens 4.9 (0-14) pg/ml B-Natriuretic Peptide 316 H (0-100) pg/ml Total Protein 8.2 (6.0-8.3) gm/dl Albumin 4.0 (3.4-5.0) gm/dl Globulin 4.2 H (2.5-4.0) gm/dl Albumin/Globulin Ratio 1.0 (0.9-2) Lipase 18 (11-82) U/L TSH 0.012 L (0.300-4.500) uIu/ml SARS-CoV-2 (PCR) NEGATIVE (Negative) Influenza Type A (PCR) Negative (Neg) Influenza Type B (PCR) Negative (Neg) RSV (RT-PCR) Negative (Neg) 12/27/22 Range/Units 07:49 WBC (4.8-10.8) K/ul RBC (4.20-5.40) M/uL Hgb (12.0-16.0) g/dl Hct (37.0-47.0) % MCV (80.0-100.0) fL MCH (25.0-34.0) pg MCHC (32.0-36.0) g/dL RDW Std Deviation (36.4-46.3) fL RDW Coeff of Alen (11.5-14.5) % Plt Count (130-400) K/uL MPV (9.4-12.4) fL Immature Gran % (Auto) % Neut % (Auto) % Lymph % (Auto) % [place] % (Auto) % Eos % (Auto) % Baso % (Auto) % Neut # (Auto) (1.40-6.50) K/uL Lymph # (Auto) (1.20-3.40) K/uL [place] # (Auto) (0.11-0.59) K/uL Eos # (Auto) (0.00-0.50) K/uL Baso # (Auto) (0.00-0.20) K/uL Immature Gran # (Auto) (0.01-0.20) K/uL Sodium (136-145) mmol/L Potassium (3.5-5.1) mmol/L Chloride (98-107) mmol/L Carbon Dioxide (21-32) mmol/L Anion Gap (3-11) BUN (6-23) mg/dl Creatinine (0.6-1.2) mg/dl Est Cr Clr Drug Dosing ml/min Est GFR ( Amer) ml/min Est GFR (Non-Af Amer) ml/min BUN/Creatinine Ratio (10-20) Glucose (70-99(Fasting)) mg/dl Lactate 1.5 (0.4-2.0) mmol/L Calcium (8.6-10.3) mg/dl Magnesium (1.7-2.4) mg/dl Total Bilirubin (0.2-1.0) mg/dl AST (13-39) U/L ALT (7-52) U/L Alkaline Phosphatase (34-104) U/L Troponin I High Sens (0-14) pg/ml B-Natriuretic Peptide (0-100) pg/ml Total Protein (6.0-8.3) gm/dl Albumin (3.4-5.0) gm/dl Globulin (2.5-4.0) gm/dl Albumin/Globulin Ratio (0.9-2) Lipase (11-82) U/L TSH (0.300-4.500) uIu/ml SARS-CoV-2 (PCR) (Negative) Influenza Type A (PCR) (Neg) Influenza Type B (PCR) (Neg) RSV (RT-PCR) (Neg) Diagnostic Findings Chest X-Ray 12/27/22 06:41 XR chest 1V portable HISTORY: lightheadedness COMPARISON: Chest 02/03/2020. FINDINGS: The lungs are clear. The cardiac silhouette remains mildly enlarged. There is a mildly tortuous thoracic aorta again noted. No pleural effusions. No pneumothorax. IMPRESSION: No significant change compared to the prior study. No acute process. ACT 112: Negative or not required by law. Electronically signed by: Anastacio Gomez M.D. 12/27/2022 7:[address] 12/27/22 06:41 CT OF THE HEAD WITHOUT CONTRAST CLINICAL HISTORY: Dizziness. COMPARISON STUDY: MRI of the brain May 22, 2017. Head CT August 08, 2018. CT DOSE: 625.8 mGy.cm TECHNIQUE: Helical axial images of the head were obtained without IV contrast. Automated exposure control was utilized for the study. A dose lowering technique was utilized adhering to the principles of ALARA. FINDINGS: No acute intracranial hemorrhage, midline shift or mass effect is present. White matter hypodensities are similar to prior exam and favor small vessel disease. The ventricular system is unremarkable. The basal cisterns are patent. No extra-axial collections are present. There are no findings to suggest acute dural sinus thrombosis or acute territorial infarct. No significant calvarial abnormalities are present. Small right mastoid effusion is unchanged. There is mild sinus mucosal thickening and small air-fluid levels within the left sphenoid and maxillary sinuses. IMPRESSION: No acute intracranial findings. No change in appearance of the brain. ACT 112: Negative or not required by law. Electronically signed by: Jorge Garces M.D. 12/27/2022 7:23 AM PG Care Time/CCT Total # of Minutes Spent Total Time Spent with Patient: Total time spent is greater than 50% in coordination of care (as documented) at patient's floor/unit and/or counseling patient: Coding Level of Care Code 78590 INT INP/OBS CARE 2/55MIN Diagnoses Atrial fibrillation with rapid ventricular response I48.91 Dementia F03.90 Hypothyroid E03.9 Pre-syncope R55 Nausea & vomiting R11.2
[2022-12-27] MEDS: ONDANSETRON INJ 2 MG/ML 2 ML VIAL IV PRN (17:53)
--- NOTE | 2022-12-27 20:01 | XCELERA ---
[id number]
--- NOTE | 2022-12-27 20:42 | Electrocardiogram Report ---
Test Reason : Blood Pressure : / mmHG Vent. Rate : 133 BPM Atrial Rate : 000 BPM P-R Int : 000 ms QRS Dur : 072 ms QT Int : 318 ms P-R-T Axes : 000 -18 142 degrees QTc Int : 473 ms Atrial fibrillation with rapid ventricular response Nonspecific ST and T wave abnormality Abnormal ECG When compared with ECG of 04-FEB-2020 06:29, Atrial fibrillation has replaced Sinus rhythm Vent. rate has increased BY 70 BPM QRS voltage has decreased Nonspecific T wave abnormality now evident in Lateral leads Confirmed by Emigdio Carpenter ([id number]) on 12/27/2022 8:41:40 PM Referred By: REFERRED SELF Confirmed By:Devin Carpenter
[2022-12-27] MEDS: SIMVASTATIN 10 MG TAB PO SCH (20:54)
[2022-12-27] MEDS: MIRTAZAPINE TAB 15 MG TAB PO SCH (20:54)
[2022-12-27] MEDS: MEMANTINE HCL 5 MG TAB PO SCH (20:54)
[2022-12-28 04:43] LABS: Hematocrit (blood only) 31.6 % (37.0-47.0); Hemoglobin 10.7 g/dl (12.0-16.0); Mean Corpuscular Hemoglobin 31.4 pg (25.0-34.0); Mean Corpuscular Hgb Conc 33.9 g/dL (32.0-36.0); Mean Corpuscular Volume 92.7 fL (80.0-100.0); Mean Platelet Volume 10.3 fL (9.4-12.4); Platelet Count 234 K/uL (130-400); RDW Coefficient of Variation 13.9 % (11.5-14.5); Red Blood Count 3.41 M/uL (4.20-5.40); White Blood Count 6.82 K/ul (4.8-10.8)
[2022-12-28 05:00] LABS: BUN Creatinine Ratio 15.4 (10-20); Calcium 8.6 mg/dl (8.6-10.3); Creatinine Clr Calc Pharmacy 59.8 ml/min; Est GFR (Non-African American) 73.3 ml/min; Potassium 3.6 mmol/L (3.5-5.1)
[2022-12-28] MEDS: LEVOTHYROXINE SODIUM 100 MCG TABLET PO SCH (05:35)
[2022-12-28] MEDS: PHENAZOPYRIDINE HCL 200 MG TAB PO SCH ×3 (08:25→20:05)
[2022-12-28] MEDS: FLUTICASONE/VILANTEROL 200/25MCG 14 PUFFS/INHALER INH SCH (08:25)
[2022-12-28] MEDS: MEMANTINE HCL 5 MG TAB PO SCH ×2 (08:25→20:04)
[2022-12-28] MEDS: ASPIRIN 81 MG CHEW PO SCH (08:26)
[2022-12-28] MEDS: dilTIAZem HCL 120 MG CAPCR PO SCH (10:05)
[2022-12-28] MEDS: APIXABAN 5 MG TABLET PO SCH ×2 (10:05→20:04)
[2022-12-28 11:35] LABS: Appearance Urine Slightly Cloudy (Clear); Color Urine Orange; Specific Gravity Urine 1.013 (1.000-1.030)
[2022-12-28 11:47] LABS: Bacteria Urine 1+ (Negative); RBC Urine 0-4 /hpf (0-4)
--- NOTE | 2022-12-28 13:12 | Hospitalist Progress Note ---
Date of Service December 28, 2022 Assessment & Plan (1) Atrial fibrillation with rapid ventricular response: Plan: Converted to sinus rhythm Her [id number] score is 4 that she will be started on Lovenox therapeutic dose Plan to switch her to Eliquis upon discharge Start p.o. Cardizem Discontinue Cardizem drip Echocardiogram unremarkable Troponin negative TSH is very low. Patient is on Synthroid 100 mcg. We will lower the dose of Synthroid to 50 mcg (2) Dementia: Plan: continue Namenda Patient has some word finding difficulty and memory issues, per family (3) Hypothyroid: Plan: TSH was very low. We will lower the dose of Synthroid to 50 mcg (4) Pre-syncope: Plan: this was secondary to rapid A-fib PT/OT consulted (5) Nausea & vomiting: Plan: secondary to rapid A-fib Zofran as needed No more nauseous Advance diet Plan DVT prophylaxis: Lovenox therapeutic dose. Plan to switch to Eliquis upon discharge CODE STATUS: DNR/DNI Admission and Anticipated Discharge Date Admission Date: December 27, 2022 Subjective Patient feels better overall. Nausea has resolved. Dizziness is improved. Denies chest pain or shortness of breath. Review of Systems Review of Systems: All systems reviewed & are unremarkable except as noted in Subjective Physical Exam Physical Exam: General: Awake, conversant Heart: S1, S2/regular rate and rhythm, no murmur rubs or gallops Lungs: Clear to auscultation bilaterally. Normal effort Abdomen: Soft/nontender/nondistended. No hepatosplenomegaly Extremities: No clubbing/cyanosis. No edema Behavior: Appropriate, cooperative Results & Data Results & Data Vital Signs (Past 12 Hours) Vital Signs Temp Pulse Pulse Resp BP Pulse Ox O2 Del Method 12/28/22 13:06 36.8 C 79 17 137/79 97 Nasal Cannula 12/28/22 10:56 60 12/28/22 08:00 Room Air 12/28/22 07:46 36.7 C 69 18 119/69 93 Room Air 12/28/22 03:46 36.8 C 73 16 123/58 L 96 Room Air O2 Flow Rate 12/28/22 13:06 3 12/28/22 10:56 12/28/22 08:00 12/28/22 07:46 12/28/22 03:46 Laboratory Results Abnormal lab results 12/28/22 12/28/22 Range/Units 03:52 05:34 RBC 3.41 L (4.20-5.40) M/uL Hgb 10.7 L (12.0-16.0) g/dl Hct 31.6 L (37.0-47.0) % RDW Std Deviation 47.0 H (36.4-46.3) fL Chloride 110 H (98-107) mmol/L Urine WBC 10-30 H (0-5) /hpf Ur Epithelial Cells 10-20 H (0-5) /lpf Urine Bacteria 1+ H (Negative) PG Care Time/CCT Total # of Minutes Spent Total Time Spent with Patient: Total time spent is greater than 50% in coordination of care (as documented) at patient's floor/unit and/or counseling patient: Coding Level of Care Code 69224 SUB INP/OBS CARE 2/35MIN Diagnoses Atrial fibrillation with rapid ventricular response I48.91 Dementia F03.90 Hypothyroid E03.9 Pre-syncope R55 Nausea & vomiting R11.2
[2022-12-28] MEDS: ONDANSETRON INJ 2 MG/ML 2 ML VIAL IV PRN (14:58)
[2022-12-28] MEDS: MIRTAZAPINE TAB 15 MG TAB PO SCH (20:04)
[2022-12-28] MEDS: SIMVASTATIN 10 MG TAB PO SCH (20:05)
[2022-12-29] MEDS: ONDANSETRON INJ 2 MG/ML 2 ML VIAL IV PRN ×2 (04:47→12:33)
[2022-12-29] MEDS ORDERED: NITROGLYCERIN SL 0.4 MG/TAB TAB SL PRN (04:57)
[2022-12-29] MEDS ORDERED: NITROGLYCERIN SL 0.4 MG/TAB TAB ONE (05:01)
[2022-12-29] MEDS: LEVOTHYROXINE SODIUM 50 MCG TABLET PO SCH (05:21)
[2022-12-29 06:27] LABS: Hematocrit (blood only) 34.8 % (37.0-47.0); Hemoglobin 11.2 g/dl (12.0-16.0); Mean Corpuscular Hemoglobin 29.8 pg (25.0-34.0); Mean Corpuscular Hgb Conc 32.2 g/dL (32.0-36.0); Mean Corpuscular Volume 92.6 fL (80.0-100.0); Mean Platelet Volume 10.4 fL (9.4-12.4); Platelet Count 234 K/uL (130-400); RDW Coefficient of Variation 13.6 % (11.5-14.5); RDW Standard Deviation 46.5 fL (36.4-46.3); Red Blood Count 3.76 M/uL (4.20-5.40); White Blood Count 5.43 K/ul (4.8-10.8)
[2022-12-29 06:36] LABS: Calcium 8.9 mg/dl (8.6-10.3); Est GFR (African American) 100.3 ml/min; Est GFR (Non-African American) 86.5 ml/min; Potassium 3.9 mmol/L (3.5-5.1)
[2022-12-29] MEDS: APIXABAN 5 MG TABLET PO SCH ×2 (08:10→21:05)
[2022-12-29] MEDS: MEMANTINE HCL 5 MG TAB PO SCH ×2 (08:10→21:05)
[2022-12-29] MEDS: dilTIAZem HCL 120 MG CAPCR PO SCH (08:11)
[2022-12-29] MEDS: ASPIRIN 81 MG CHEW PO SCH (08:11)
[2022-12-29] MEDS: FLUTICASONE/VILANTEROL 200/25MCG 14 PUFFS/INHALER INH SCH (08:11)
[2022-12-29] MEDS: PHENAZOPYRIDINE HCL 200 MG TAB PO SCH ×3 (08:12→21:06)
[2022-12-29] MEDS: SODIUM CHLORIDE 0.9% 1,000 ML IV SCH ×2 (08:54→19:00)
[2022-12-29] MEDS ORDERED: PROMETHAZINE HCL 12.5 MG in SODIUM CHLORIDE 0.9% 50 ML IV PRN ×2 (13:43→14:15)
--- NOTE | 2022-12-29 14:50 | Hospitalist Progress Note ---
Date of Service December 29, 2022 Assessment & Plan (1) Atrial fibrillation with rapid ventricular response: Plan: Converted to sinus rhythm Her [id number] score is 4. she was started on Lovenox therapeutic dose Plan to switch her to Eliquis upon discharge Start p.o. Cardizem 120 Discontinued Cardizem drip Echocardiogram unremarkable Troponin negative TSH is very low. Patient is on Synthroid 100 mcg. Lowered the dose of Synthroid to 50 mcg (2) Dementia: Plan: continue Namenda Patient has some word finding difficulty and memory issues, per family (3) Hypothyroid: Plan: TSH was very low. We will lower the dose of Synthroid to 50 mcg (4) Pre-syncope: Plan: this was secondary to rapid A-fib noted that she has orthostatic hypotension as well. Patient says that she has been not drinking and fear of to frequent bathroom visits. We will hydrate her gently She may also have a component of benign positional vertigo. PT/OT consulted (5) Nausea & vomiting: Plan: secondary to rapid A-fib Zofran as needed No more nauseous Advance diet Plan DVT prophylaxis: Lovenox therapeutic dose. Plan to switch to Eliquis upon discharge CODE STATUS: DNR/DNI Admission and Anticipated Discharge Date Admission Date: December 27, 2022 Subjective patient did not have any major complaints during my encounter. However I was informed later by the nurse that she went back into atrial fibrillation with mild rapid ventricular response. She has been nauseous. Noted that her orthostatic vital signs were positive. She is being given IV fluids. Review of Systems Review of Systems: All systems reviewed & are unremarkable except as noted in Subjective Physical Exam Physical Exam: General: Awake, conversant Heart: S1, S2/regular rate and rhythm, no murmur rubs or gallops Lungs: Clear to auscultation bilaterally. Normal effort Abdomen: Soft/nontender/nondistended. No hepatosplenomegaly Extremities: No clubbing/cyanosis. No edema Behavior: Appropriate, cooperative Results & Data Results & Data Vital Signs (Past 12 Hours) Vital Signs Temp Pulse Pulse Resp BP Pulse Ox Pulse Ox 12/29/22 14:03 95 12/29/22 10:53 61 12/29/22 07:56 36.6 C 60 18 117/73 96 12/29/22 07:39 12/29/22 02:51 36.7 C 65 20 123/72 95 Pulse Ox O2 Del Method O2 Flow Rate 12/29/22 14:03 95 12/29/22 10:53 12/29/22 07:56 Nasal Cannula 2 12/29/22 07:39 Room Air 12/29/22 02:51 Room Air PG Care Time/CCT Total # of Minutes Spent Total Time Spent with Patient: Total time spent is greater than 50% in coordination of care (as documented) at patient's floor/unit and/or counseling patient: Coding Level of Care Code 49295 SUB INP/OBS CARE 2/35MIN Diagnoses Atrial fibrillation with rapid ventricular response I48.91 Dementia F03.90 Hypothyroid E03.9 Pre-syncope R55 Nausea & vomiting R11.2
[2022-12-29] MEDS ORDERED: dilTIAZem HCL 120 MG CAPCR PO STA (16:40)
--- NOTE | 2022-12-29 19:13 | Electrocardiogram Report ---
Test Reason : Blood Pressure : / mmHG Vent. Rate : 076 BPM Atrial Rate : 076 BPM P-R Int : 138 ms QRS Dur : 092 ms QT Int : 406 ms P-R-T Axes : 054 009 034 degrees QTc Int : 456 ms Poor data quality, interpretation may be adversely affected Sinus rhythm with Premature atrial complexes Nonspecific ST abnormality Abnormal ECG When compared with ECG of 27-DEC-2022 06:27, Sinus rhythm has replaced Atrial fibrillation Vent. rate has decreased BY 57 BPM Nonspecific T wave abnormality no longer evident in Lateral leads Confirmed by Boyd Burks ([id number]) on 12/29/2022 7:12:28 PM Referred By: REFERRED SELF Confirmed By:Boyd Burks
[2022-12-29] MEDS: MIRTAZAPINE TAB 15 MG TAB PO SCH (21:05)
[2022-12-29] MEDS: SIMVASTATIN 10 MG TAB PO SCH (21:06)
--- NOTE | 2022-12-29 22:18 | Electrocardiogram Report ---
Test Reason : Blood Pressure : / mmHG Vent. Rate : 076 BPM Atrial Rate : 076 BPM P-R Int : 138 ms QRS Dur : 082 ms QT Int : 416 ms P-R-T Axes : 045 011 033 degrees QTc Int : 468 ms Normal sinus rhythm Nonspecific ST abnormality Abnormal ECG When compared with ECG of 28-DEC-2022 12:56, (unconfirmed) Premature atrial complexes are no longer Present Confirmed by Boyd Burks ([id number]) on 12/29/2022 10:17:51 PM Referred By: REFERRED SELF Confirmed By:Boyd Burks
--- NOTE | 2022-12-29 22:38 | Electrocardiogram Report ---
Test Reason : Blood Pressure : / mmHG Vent. Rate : 104 BPM Atrial Rate : 125 BPM P-R Int : 000 ms QRS Dur : 082 ms QT Int : 348 ms P-R-T Axes : 000 009 029 degrees QTc Int : 457 ms Atrial fibrillation with rapid ventricular response Nonspecific ST abnormality Abnormal ECG When compared with ECG of 29-DEC-2022 03:36, (unconfirmed) Atrial fibrillation has replaced Sinus rhythm Non-specific change in ST segment in Inferior leads Confirmed by Boyd Burks ([id number]) on 12/29/2022 10:38:11 PM Referred By: REFERRED SELF Confirmed By:Boyd Burks
[2022-12-30] MEDS: SODIUM CHLORIDE 0.9% 1,000 ML IV SCH ×2 (04:13→14:28)
[2022-12-30] MEDS: LEVOTHYROXINE SODIUM 50 MCG TABLET PO SCH (05:44)
[2022-12-30 07:45] LABS: Hematocrit (blood only) 37.4 % (37.0-47.0); Hemoglobin 12.2 g/dl (12.0-16.0); Mean Corpuscular Hemoglobin 30.2 pg (25.0-34.0); Mean Corpuscular Hgb Conc 32.6 g/dL (32.0-36.0); Mean Corpuscular Volume 92.6 fL (80.0-100.0); Mean Platelet Volume 10.2 fL (9.4-12.4); Platelet Count 238 K/uL (130-400); RDW Coefficient of Variation 13.4 % (11.5-14.5); RDW Standard Deviation 45.8 fL (36.4-46.3); Red Blood Count 4.04 M/uL (4.20-5.40); White Blood Count 5.72 K/ul (4.8-10.8)
[2022-12-30 08:01] LABS: BUN Creatinine Ratio 16.9 (10-20); Calcium 8.6 mg/dl (8.6-10.3); Creatinine Clr Calc Pharmacy 65.7 ml/min; Est GFR (African American) 95.2 ml/min; Est GFR (Non-African American) 82.2 ml/min; Potassium 3.8 mmol/L (3.5-5.1)
[2022-12-30] MEDS: MEMANTINE HCL 5 MG TAB PO SCH ×2 (08:09→20:22)
[2022-12-30] MEDS: dilTIAZem HCL 120 MG CAPCR PO SCH (08:09)
[2022-12-30] MEDS: ASPIRIN 81 MG CHEW PO SCH (08:09)
[2022-12-30] MEDS: APIXABAN 5 MG TABLET PO SCH ×2 (08:10→20:22)
[2022-12-30] MEDS: FLUTICASONE/VILANTEROL 200/25MCG 14 PUFFS/INHALER INH SCH (08:10)
[2022-12-30] MEDS: PHENAZOPYRIDINE HCL 200 MG TAB PO SCH ×3 (08:10→20:21)
[2022-12-30 08:27] LABS: Estimated Average Glucose 117 mg/dl; Hemoglobin A1C 5.7 % (4.5-5.6)
[2022-12-30] MEDS ORDERED: dilTIAZem HCL 120 MG CAPCR PO STA (09:25)
--- NOTE | 2022-12-30 14:49 | Hospitalist Progress Note ---
Date of Service December 30, 2022 Assessment & Plan (1) Atrial fibrillation with rapid ventricular response: Plan: patient has been going back and forth between sinus atrial fibrillation Her [id number] score is 4. she was started on Lovenox therapeutic dose now switched to p.o. Elietienne started initially on p.o. Cardizem 120. Increase the dose to 240 today for rate control Discontinued Cardizem drip Echocardiogram unremarkable Troponin negative TSH is very low. Patient is on Synthroid 100 mcg. Lowered the dose of Synthroid to 50 mcg (2) Dementia: Plan: continue Namenda Patient has some word finding difficulty and memory issues, per family (3) Hypothyroid: Plan: TSH was very low. We will lower the dose of Synthroid to 50 mcg (4) Pre-syncope: Plan: this was secondary to rapid A-fib noted that she has orthostatic hypotension as well. Patient says that she has been not drinking and fear of to frequent bathroom visits. orthostatic vital signs today are negative after hydration Discontinue IV fluids Recheck orthostatic vital signs tomorrow She may also have a component of benign positional vertigo. PT/OT consulted (5) Nausea & vomiting: Plan: secondary to rapid A-fib Zofran as needed No more nauseous Advance diet Plan DVT prophylaxis: Reed CODE STATUS: DNR/DNI Admission and Anticipated Discharge Date Admission Date: December 27, 2022 Subjective Patient says that she is finally feeling better today. Denies chest pain or shortness of breath. Denies palpitations. Her heart rate was elevated this morning and she was given an extra dose of Cardizem 120 mg Review of Systems Review of Systems: All systems reviewed & are unremarkable except as noted in Subjective Physical Exam Physical Exam: General: Awake, conversant Heart: S1, S2/regular rate and rhythm, no murmur rubs or gallops Lungs: Clear to auscultation bilaterally. Normal effort Abdomen: Soft/nontender/nondistended. No hepatosplenomegaly Extremities: No clubbing/cyanosis. No edema Behavior: Appropriate, cooperative Results & Data Results & Data Vital Signs (Past 12 Hours) Vital Signs Temp Pulse Pulse Resp BP Pulse Ox O2 Del Method 12/30/22 13:49 88 12/30/22 11:48 36.8 C 102 H 20 141/83 H 93 Room Air 12/30/22 07:53 36.7 C 97 H 18 116/83 96 Room Air 12/30/22 03:00 36.5 C 76 16 117/69 98 Room Air Laboratory Results Abnormal lab results 12/30/22 Range/Units 07:12 RBC 4.04 L (4.20-5.40) M/uL Chloride 110 H (98-107) mmol/L Hemoglobin A1c 5.7 H (4.5-5.6) % PG Care Time/CCT Total # of Minutes Spent Total Time Spent with Patient: Total time spent is greater than 50% in coordination of care (as documented) at patient's floor/unit and/or counseling patient: Coding Level of Care Code 63681 SUB INP/OBS CARE 2/35MIN Diagnoses Atrial fibrillation with rapid ventricular response I48.91 Dementia F03.90 Hypothyroid E03.9 Pre-syncope R55 Nausea & vomiting R11.2
[2022-12-30] MEDS: SIMVASTATIN 10 MG TAB PO SCH (20:21)
[2022-12-30] MEDS: MIRTAZAPINE TAB 15 MG TAB PO SCH (20:23)
[2022-12-31 05:14] LABS: Hematocrit (blood only) 33.2 % (37.0-47.0); Hemoglobin 10.9 g/dl (12.0-16.0); Mean Corpuscular Hemoglobin 30.3 pg (25.0-34.0); Mean Corpuscular Hgb Conc 32.8 g/dL (32.0-36.0); Mean Corpuscular Volume 92.2 fL (80.0-100.0); Mean Platelet Volume 10.1 fL (9.4-12.4); Platelet Count 245 K/uL (130-400); RDW Coefficient of Variation 13.5 % (11.5-14.5); RDW Standard Deviation 46.1 fL (36.4-46.3)
[2022-12-31 05:33] LABS: BUN Creatinine Ratio 21.9 (10-20); Calcium 8.9 mg/dl (8.6-10.3); Creatinine Clr Calc Pharmacy 63.9 ml/min; Est GFR (African American) 92.1 ml/min; Est GFR (Non-African American) 79.4 ml/min; Potassium 3.8 mmol/L (3.5-5.1)
[2022-12-31] MEDS: LEVOTHYROXINE SODIUM 50 MCG TABLET PO SCH (05:57)
[2022-12-31] MEDS: ASPIRIN 81 MG CHEW PO SCH (09:01)
[2022-12-31] MEDS: MEMANTINE HCL 5 MG TAB PO SCH ×2 (09:02→20:56)
[2022-12-31] MEDS: dilTIAZem HCL 240 MG CAPCR PO SCH (09:02)
[2022-12-31] MEDS: PHENAZOPYRIDINE HCL 200 MG TAB PO SCH ×3 (09:02→20:56)
[2022-12-31] MEDS: FLUTICASONE/VILANTEROL 200/25MCG 14 PUFFS/INHALER INH SCH (09:02)
[2022-12-31] MEDS: APIXABAN 5 MG TABLET PO SCH ×2 (09:03→20:56)
[2022-12-31] MEDS ORDERED: ALPRAZolam 0.25 MG TABLET PO PRN (15:29)
--- NOTE | 2022-12-31 19:13 | Hospitalist Progress Note ---
Date of Service December 31, 2022 Assessment & Plan (1) Atrial fibrillation with rapid ventricular response: Plan: patient has been going back and forth between sinus atrial fibrillation Her [id number] score is 4. she was started on Lovenox therapeutic dose switched to p.o. Elietienne started initially on p.o. Cardizem 120. Increase the dose to 240 today for rate control Discontinued Cardizem drip Echocardiogram unremarkable Troponin negative TSH is very low. Patient is on Synthroid 100 mcg. Lowered the dose of Synthroid to 50 mcg (2) Dementia: Plan: continue Namenda Patient has some word finding difficulty and memory issues, per family (3) Hypothyroid: Plan: TSH was very low. We will lower the dose of Synthroid to 50 mcg (4) Pre-syncope: Plan: this was secondary to rapid A-fib noted that she has orthostatic hypotension as well. Patient says that she has been not drinking and fear of to frequent bathroom visits. orthostatic vital signs today are negative after hydration Discontinue IV fluids Recheck orthostatic vital signs tomorrow She may also have a component of benign positional vertigo. PT/OT consulted (5) Nausea & vomiting: Plan: secondary to rapid A-fib Zofran as needed No more nauseous Advance diet Plan DVT prophylaxis: Reed CODE STATUS: DNR/DNI Admission and Anticipated Discharge Date Admission Date: December 27, 2022 Subjective Good feels better, continue current treatment, if patient is medically stable, can be discharged Tomorrow Physical Exam Physical Exam: General: Awake, conversant Heart: S1, S2/regular rate and rhythm, no murmur rubs or gallops Lungs: Clear to auscultation bilaterally. Normal effort Abdomen: Soft/nontender/nondistended. No hepatosplenomegaly Extremities: No clubbing/cyanosis. No edema Behavior: Appropriate, cooperative Results & Data Results & Data Vital Signs (Past 12 Hours) Vital Signs Temp Pulse Pulse Resp BP Pulse Ox O2 Del Method 12/31/22 16:03 36.8 C 81 19 104/69 95 Room Air 12/31/22 14:01 75 12/31/22 12:18 37.0 C 79 18 125/76 96 Room Air 12/31/22 08:11 36.6 C 85 18 133/91 94 Room Air 12/31/22 07:15 70 PG Care Time/CCT Total # of Minutes Spent Total Time Spent with Patient: Total time spent is greater than 50% in coordination of care (as documented) at patient's floor/unit and/or counseling patient: Coding Level of Care Code 50987 SUB INP/OBS CARE 2/35MIN Diagnoses Atrial fibrillation with rapid ventricular response I48.91 Dementia F03.90 Hypothyroid E03.9 Pre-syncope R55 Nausea & vomiting R11.2
[2022-12-31] MEDS: MIRTAZAPINE TAB 15 MG TAB PO SCH (20:56)
[2022-12-31] MEDS: SIMVASTATIN 10 MG TAB PO SCH (20:56)
[2023-01-01] MEDS: LEVOTHYROXINE SODIUM 50 MCG TABLET PO SCH (05:40)
[2023-01-01] MEDS: ONDANSETRON INJ 2 MG/ML 2 ML VIAL IV PRN (05:40)
[2023-01-01 06:43] LABS: Hematocrit (blood only) 34.5 % (37.0-47.0); Hemoglobin 11.4 g/dl (12.0-16.0); Mean Corpuscular Hemoglobin 30.3 pg (25.0-34.0); Mean Corpuscular Volume 91.8 fL (80.0-100.0); Mean Platelet Volume 9.8 fL (9.4-12.4); Platelet Count 257 K/uL (130-400); RDW Coefficient of Variation 13.5 % (11.5-14.5); RDW Standard Deviation 45.2 fL (36.4-46.3); Red Blood Count 3.76 M/uL (4.20-5.40); White Blood Count 5.97 K/ul (4.8-10.8)
[2023-01-01 07:24] LABS: Calcium 8.9 mg/dl (8.6-10.3); Potassium 3.9 mmol/L (3.5-5.1)
[2023-01-01 07:30] LABS: BUN Creatinine Ratio 21.6 (10-20); Creatinine Clr Calc Pharmacy 62.6 ml/min; Est GFR (African American) 90.6 ml/min; Est GFR (Non-African American) 78.1 ml/min
[2023-01-01] MEDS: FLUTICASONE/VILANTEROL 200/25MCG 14 PUFFS/INHALER INH SCH (08:07)
[2023-01-01] MEDS: dilTIAZem HCL 240 MG CAPCR PO SCH (08:07)
[2023-01-01] MEDS: APIXABAN 5 MG TABLET PO SCH (08:08)
[2023-01-01] MEDS: MEMANTINE HCL 5 MG TAB PO SCH (08:09)
[2023-01-01] MEDS: PHENAZOPYRIDINE HCL 200 MG TAB PO SCH ×2 (08:09→13:40)
[2023-01-01] MEDS: ASPIRIN 81 MG CHEW PO SCH (08:12)
--- NOTE | 2023-01-04 07:50 | Discharge Summary ---
Date of Service January 01, 2023 Admission HPI Per Admitting Provider Past medical history 1. Dementia 2. Depression 3. Hypothyroidism 4. Hyperlipidemia 5. Benign essential hypertension 6. Prediabetes History of presenting illness This is a 77-year-old female who presented to the emergency room with the above chief complaint. The patient stated that her dog needed to be let out. When she came back after letting her dog out, she started feeling shaky and dizzy and unsteady in her feet. She lowered herself to the ground. She then pounded on the wall to get attention. Her daughter came and found her on the floor. She called 911 and was brought into the emergency room. She was found to be in rapid atrial fibrillation. The patient did not hit her head. She did not have any chest pain. She was nauseous and was vomiting. She does not have a history of atrial fibrillation. In the emergency room, she had initial screening tests done that included a head CT, screening labs, troponins which were all normal. She was started on a Cardizem drip and was given IV Zofran. I was asked to admit this patient. When I met her, she was still complaining of some dizziness as she was still in rapid A-fib with a heart rate in the 1 teens to 130s. Principal Diagnosis A-fib with RVR, orthostatic hypotension Discharge Exam General: Awake, conversant Heart: S1, S2/regular rate and rhythm, no murmur rubs or gallops Lungs: Clear to auscultation bilaterally. Normal effort Abdomen: Soft/nontender/nondistended. No hepatosplenomegaly Extremities: No clubbing/cyanosis. No edema Behavior: Appropriate, cooperative Discharge Data Allergies Allergy/AdvReac Type Severity Reaction Status Date / Time buspirone Allergy Unknown rash Verified 12/27/22 10:29 omeprazole Allergy Unknown rash Verified 12/27/22 10:29 sertraline AdvReac Gastrointestinal Verified 12/29/22 14:01 Upset Consultations 12/27/22 07:33 ED Decision to Admit Stat Ordered Studies 12/27/22 06:41 CT head/brain wo con Stat Hospital Course (1) Atrial fibrillation with rapid ventricular response: -The patient presented to the hospital with A-fib with RVR, initiated on Cardizem drip and then switched to diltiazem oral long-acting diltiazem patient has been going back and forth between sinus atrial fibrillation Her [id number] score is 4. she was started on Lovenox therapeutic dose a switched to p.o. Eliquis started initially on p.o. Cardizem 120. Increase the dose to 240 today for rate control Echocardiogram unremarkable Troponin negative TSH is very low. Patient is on Synthroid 100 mcg. Lowered the dose of Synthroid to 50 mcg (2) Dementia: continue Namenda Patient has some word finding difficulty and memory issues, per family (3) Hypothyroid: TSH was very low. We will lower the dose of Synthroid to 50 mcg, TSH needs to be repeated in 3 to 4-week (4) Pre-syncope: this was secondary to rapid A-fib noted that she has orthostatic hypotension as well. Patient says that she has been not drinking and fear of to frequent bathroom visits. orthostatic vital signs today are negative after hydration Discontinue IV fluids She may also have a component of benign positional vertigo. PT/OT consulted recommend home with home PT (5) Nausea & vomiting: secondary to rapid A-fib Zofran as needed No more nauseous Advance diet Plan DVT prophylaxis: Eliquis CODE STATUS: DNR/DNI Total Time Total Time Spent Total Time Spent (In Minutes): 45 MINS Discharge Plan Discharge Items Patient Disposition: Home - Home Health Services Reason For Visit: DIZZINESS Discharge Diagnosis: Atrial fibrillation Condition on Discharge: Good Activity: Resume your previous activity Lifting: Gradually increase as tolerated Bathing: No limitations Exercise/Sports: Gradually increase as tolerated Driving/Machine Use: No limitations Weightbearing: Full weightbearing Non-emergency contact: Primary Care Provider Call non-emergency contact if: you have any medication questions Follow-up/Referrals: Jeanmarie Cabrera MD [Physician] - 01/15/23 ( Paroxysmal Fib with RVR ) Patricio Quigley DO [Primary Care Provider] - 01/08/23 9:20 am Diet: Heart Healthy Addtl Attending Provider Instructions: Afib with RVR Pending Studies at Discharge: No Stand-Alone Forms: [employer], Work/School Release, Smoking Cessation Medications and DC Order Prescriptions: New Eliquis 5 mg Tablet 5 mg PO BID Qty: 160 0RF diltiazem HCl 240 mg Capsule,Extended Release 24hr 240 mg PO QAM Qty: 90 0RF aspirin [Children's Aspirin] 81 mg Tablet,Chewable 81 mg PO QAM Qty: 90 0RF Continued fluticasone propionate 50 mcg/actuation spray,suspension 1 spray intranasal BID PRN (Reason: Congestion) Qty: 18.2 2RF Symbicort 160-4.5 mcg/actuation HFA aerosol inhaler 2 puff inhalation BID PRN (Reason: Shortness Of Breath Or Wheezing) Qty: 30.6 1RF simvastatin 10 mg tablet 10 mg PO HS Qty: 90 1RF memantine [Namenda] 5 mg tablet 5 mg PO BID Qty: 60 2RF mirtazapine 7.5 mg tablet 7.5 mg PO PM Qty: 30 5RF nitroglycerin [Nitrostat] 0.4 mg tablet, sublingual 0.4 mg sublingual UD PRN (Reason: Chest Pain) Qty: 20 2RF multivitamin with minerals [Hair,Skin and Nails] Tablet 1 tab PO QAM cholecalciferol (vitamin D3) 100 mcg (4,000 unit) Capsule 100 mcg PO QAM Discontinued diltiazem HCl 180 mg capsule,extended release 24hr 180 mg PO QAM Qty: 90 3RF ibuprofen 200 mg tablet 400 mg PO HS No Action levothyroxine 100 mcg tablet 50 mcg PO QAM Qty: 90 1RF Rx Instructions: [facility] 01/01/23 NEEDS TSH CHECKED IN 4-6 WEEKS. Discharge Orders: Discharge Order (Routine); Ordered 01/01/23 Ordered By: Rishabh Mejia Admission Data Admit Date/Time: 12/27/22 11:19 Attending Provider: Rishabh Mejia Admit Provider: Karlo Stanton Primary Care Provider: Patricio Quigley Other Providers: Reymundo Jung; Check,Home Care Other Interventions: Discharge Summary Assessment (RN) Last Done: 01/01/23 16:59 Coding Level of Care Code 26182 INP/OBS DISCH >30 MIN Diagnoses Atrial fibrillation with rapid ventricular response I48.91 Dementia F03.90 Hypothyroid E03.9 Pre-syncope R55 Nausea & vomiting R11.2
== END 2023-01-01 17:09 | disposition home health service (06) | DRG 310 ==
LOC: ED 06:15 → 4W 11:19 → SUATTDRO 11:19 → 4W 12:00

== ENCOUNTER 2024-09-07 08:24 | Observation (INO) ==
--- NOTE | 2024-09-07 08:44 | Emergency Department Note ---
Impression & Plan Syncope and collapse, Dementia, Nausea, Diverticulitis large intestine ED Provider Note Provider: Tab Esqueda MD CHIEF COMPLAINT: Fall/syncope, nausea HISTORY OF PRESENT ILLNESS: Patient is a 79-year-old female past medical history significant for dementia, paroxysmal atrial fibrillation not on anticoagulation, PVCs, and GERD presenting the ambulance today from home. EMS reports to me that patient evidently got up this morning and was going to take her morning pills when she syncopized and fell to the ground. Patient states she remembers that she is always takes a pill in the morning. Did not have breakfast yet. Evidently over the last day or so has been having a little bit of left-sided abdominal discomfort and nausea at times. Particular nauseous this morning did receive some Zofran for EMS with minimal improvement. EMS states the patient was resting on a pillow when they found her. Reportedly again did pass out but patient herself not a good historian to this. Denies significant headache with some chronic dizziness currently. Not reported to be on blood thinners at this time. Denies chest pain or shortness of breath to me. Denies injury to the extremities. PAST MEDICAL HISTORY: As noted above MEDICATIONS: Reviewed home medications SOCIAL HISTORY: Lives at home with family PHYSICAL EXAM: GENERAL: alert and oriented to person and her birthday and that she is located in the hospital but not a great historian. She is in no acute distress on stretcher Head: normocephalic and atraumatic EYES: No injection, discharge or icterus. PERRL, EOMI. NECK: Trachea midline. Supple without posterior midline cervical tenderness ENT: Mucous membranes pink and moist. LUNGS: Airway patent. No retractions. Breath sounds clear HEART: Regular rate and rhythm. No chest wall tenderness ABDOMEN: Soft and non-tender, without guarding or rebound. Stable pelvis without significant flank tenderness. SKIN: Acyanotic, warm, dry, without rashes EXTREMITIES: Without deformity or tenderness with trace bilateral pedal edema. NEUROLOGICAL: No focal deficits. No aphasia. No facial droop or slurred speech. Normal strength and tone in the extremities. Sensation to gross touch normal. Ambulatory. EK bpm normal sinus rhythm. No PVC or PAC. No acute ST segment elevation or depression with lead III T wave version and a QTc of 461. CONTINUOUS CARDIAC MONITORING: was ordered and showed a heart rate of 60s to 80s bpm in normal sinus rhythm GCS 15. Patient's laboratory studies and imaging reviewed. Differential includes Vasovagal event, dehydration, infection, hypoglycemia, electrolyte abnormalities, cardiac sources, intracerebral event, pulmonary embolism, neurologic, seizure, gastrointestinal, diverticulitis, UTI, obstruction, as well as other pathologies. IMPRESSION/MEDICAL DECISION MAKING: Patient well-appearing in no distress. Vitals reassuring upon arrival and does not appear to be in A-fib. May be some left-sided abdominal pain earlier but denies currently. Blood sugar not low. Is having some nausea mild improvement with Zofran prior to arrival given additional here. No reported use of blood thinners at this time; do not see recent Eliquis fill in the computer system either. No evidence of significant trauma on exam and no focal neurological deficits. Reported to have some dementia and again not a great historian to events but does not seem lethargic/drowsy or encephalopathic. Will complete CT scans given the fall. Basic blood workup was obtained and urinalysis ordered to look for possible infectious metabolic abnormalities leading to events of today. Did review records and she has prior notes indicating she has longstanding dizziness although does not really report this is a primary complaint today. Given the syncopal episode with ground-level fall and her age, will complete CT scan imaging to exclude occult traumatic injury, acute intracranial bleed, PE, or abdominal/pelvic complaints to explain her nausea and at times left-sided abdominal discomfort. EKG here shows sinus rhythm not in A-fib at this point. Chest x-ray and pelvis left hip x-ray per my review and interpretation as well as radiology report without evidence of fracture, hip dislocation, or pneumothorax/pneumonia visualized. Blood work today stable mild anemia. No thrombocytopenia. White blood cell count 10 within normal limits. No significant electrolyte abnormality or signs of acute renal dysfunction. Blood work not consistent with hepatitis or pancreatitis. CK and troponin are normal. Doubt ACS or rhabdomyolysis. CT head and cervical spine per radiology without evidence of acute intracranial bleed, skull fracture, or cervical spine fracture/subluxation noted. CTA chest and CT abdomen pelvis per radiology without evidence of pneumonia or PE but acute uncomplicated proximal sigmoid colon diverticulitis and incidental left adrenal gland nodule. Mild discomfort & GI symptoms likely related to the diverticulitis. Seems as if this illness provoked the syncopal episode this morning. Given her age and comorbidities with ongoing nausea, discussed with her staying for observation overnight and IV antibiotics to treat the diverticulitis. Family updated. Hospitalist was contacted. DIAGNOSIS: Syncope and collapse, dementia, nausea, sigmoid diverticulitis DISPOSITION: Hospitalist will evaluate Patient was agreeable with this plan. Past Med/Surg History Problem List (Updated 09/07/24 @ 11:30 by Anastacio Richard PA-C) Fall Hypothyroidism Diverticulitis Diverticulitis large intestine (Acute) Nausea (Acute) Syncope and collapse (Acute) Vitamin D deficiency Sensorineural hearing loss (SNHL) of right ear with restricted hearing of left ear B12 deficiency Anemia HX Ataxia Hearing loss Paroxysmal atrial fibrillation Nausea & vomiting (Acute) Dementia (Acute) GERD (gastroesophageal reflux disease) Elevated hemoglobin A1c Hypothyroid Atypical chest pain Pre-syncope Prinzmetal's angina (Acute) Osteopenia (Acute) Asthma Depression (Chronic) Medical History Anemia Anxiety Asthma Atrial fibrillation with rapid ventricular response Chest pain Chronic pain Depression GERD (gastroesophageal reflux disease) GERD without esophagitis Heart murmur Hypercholesterolemia Hypertension Hypertension Hypolipidemia Hypothyroidism Hypothyroidism Hypothyroidism Menopause Osteopenia Right asymmetrical SNHL Vasovagal syncope Vitamin D deficiency Surgical History History of cardiac cath S/P colonoscopy S/P tubal ligation S/P wisdom tooth extraction Family History Grandmother Breast cancer Brother Family history of diabetes mellitus Myocardial infarction Family hx of colon cancer Father Lung cancer Sister Family history of diabetes mellitus Other No significant family history Denies family history of Ovarian cancer Prostate cancer Colorectal cancer Social History Smoking Status: Never smoker Second Hand Exposure: No; Do You Dip or Chew Tobacco: No; Hx Alcohol Use: No Hx Substance Use: No Preferred Language: Japanese Communication Ability: Effective Visual Impairment: No Limitations Hearing Ability: Hard of Hearing Director Instrumentation Required: No Beliefs That Will Affect Care: None marital status: / Current Living Situation: Family Current Living Situation Comment: daughter and grandchildren live with her current occupational status: retired How many Children do You have: 4 Feels Safe at Home: Yes Childhood Exposure to Second-Hand Smoke: Yes Diet: regular caffeine: Yes during the past year weight has: remained stable Dental Care, Regularly: No Physical Activity Frequency: Does not Exercise Seatbelt Use: always Sunscreen Use: Yes Assistive Devices: Walker Allergies Allergies Allergy/AdvReac Type Severity Reaction Status Date / Time buspirone Allergy Unknown rash Verified 09/07/24 11:24 omeprazole Allergy Unknown rash Verified 09/07/24 11:24 sertraline AdvReac Gastrointestinal Verified 09/07/24 11:24 Upset Home Meds Home Medications Medication Instructions Recorded Confirmed multivitamin with minerals 1 tab PO QAM 04/07/19 09/07/24 (Hair,Skin and Nails tablet) apixaban 5 mg tablet (Eliquis) 0 mg PO BID 09/07/24 09/07/24 budesonide-formoterol HFA 160 2 puff inhalation BID PRN 09/07/24 09/07/24 mcg-4.5 mcg/actuation aerosol Shortness Of Breath Or Wheezing inhaler (Symbicort) diltiazem HCl 240 mg 0 mg PO QAM 09/07/24 09/07/24 capsule,extended release 24 hr nitroglycerin 0.4 mg sublingual 0.4 mg sublingual DIRECTED PRN 09/07/24 09/07/24 tablet (Nitrostat) Chest Pain simvastatin 10 mg tablet 0 mg PO HS 09/07/24 09/07/24 Previous Rx's Medication Instructions Recorded aspirin 81 mg chewable tablet 81 mg PO QAM #90 tabs 01/01/23 (Children's Aspirin) meclizine 25 mg tablet 25 mg PO TID PRN dizziness #90 tabs 01/08/23 fluticasone propionate 50 1 spray intranasal BID PRN 03/27/23 mcg/actuation nasal Congestion #48 mL spray,suspension cyanocobalamin (vitamin B-12) 1,000 mcg IM MONTHLY #10 mL 10/30/23 1,000 mcg/mL injection solution syringe with needle 3 mL 25 gauge #10 ea 10/30/23 x 1" memantine 5 mg tablet 5 mg PO BID #180 tabs 04/02/24 mirtazapine 7.5 mg tablet 7.5 mg PO PM #90 tabs 04/02/24 levothyroxine 100 mcg tablet 100 mcg PO QAM #90 tabs 04/26/24 Results & Data (ED) Vital Signs Vital Signs - 24 hr 09/07/24 08:37 09/07/24 08:41 09/07/24 08:42 Temperature 36.9 C Temperature Source Oral Pulse Rate 83 72 83 Respiratory Rate 16 16 Respiratory Effort / Characteristics Non-Labored Spontaneous Respiratory Depth Normal Blood Pressure 122/95 Blood Pressure Mean 104 Pulse Oximetry 96 95 Oxygen Delivery Method Room Air Room Air Sepsis Recent Fever Within 48 Hours No Sepsis New/Unexplained Change in Mental Status No Sepsis Action Taken by Nursing No Action Required 09/07/24 08:42 Temperature Temperature Source Pulse Rate Respiratory Rate Respiratory Effort / Characteristics Respiratory Depth Blood Pressure Blood Pressure Mean Pulse Oximetry 95 Oxygen Delivery Method Room Air Sepsis Recent Fever Within 48 Hours Sepsis New/Unexplained Change in Mental Status Sepsis Action Taken by Nursing Laboratory Data 09/07/24 08:38 09/07/24 08:38 Lab Results 09/07/24 09/07/24 09/07/24 Range/Units 08:38 08:43 08:52 WBC 10.09 (4.8-10.8) K/ul RBC 3.65 L (4.20-5.40) M/uL Hgb 11.1 L (12.0-16.0) g/dl POC Hgb 11.6 L (12.0-16.0) g/dl Hct 32.7 L (37.0-47.0) % POC Hct 34 L (37-47) % MCV 89.6 (80.0-100.0) fL MCH 30.4 (25.0-34.0) pg MCHC 33.9 (32.0-36.0) g/dL RDW Std Deviation 44.6 (36.4-46.3) fL RDW Coeff of Alen 13.4 (11.5-14.5) % Plt Count 216 (130-400) K/uL MPV 10.9 (9.4-12.4) fL Immature Gran % (Auto) 0.3 % Neut % (Auto) 85.4 % Lymph % (Auto) 7.0 % [place] % (Auto) 6.4 % Eos % (Auto) 0.7 % Baso % (Auto) 0.2 % Neut # (Auto) 8.61 H (1.40-6.50) K/uL Lymph # (Auto) 0.71 L (1.20-3.40) K/uL [place] # (Auto) 0.65 H (0.11-0.59) K/uL Eos # (Auto) 0.07 (0.00-0.50) K/uL Baso # (Auto) 0.02 (0.00-0.20) K/uL Immature Gran # (Auto) 0.03 (0.01-0.20) K/uL PT 12.0 (9.0-12.0) Seconds INR 1.1 (0.9-1.1) POC Sodium 136 (135-144) mmol/L Sodium 133 L (136-145) mmol/L POC Potassium 4.0 (3.3-5.0) mmol/L Potassium 3.9 (3.5-5.1) mmol/L POC Chloride 106 (101-112) mmol/L Chloride 106 (98-107) mmol/L Carbon Dioxide 20 L (21-32) mmol/L POC Total CO2 20 L (24-31) mmol/L Anion Gap 7 (3-11) POC Anion Gap 15.0 L (16-25) mmol/L POC BUN 12 (7-18) mg/dl BUN 13 (6-23) mg/dl Creatinine 0.69 (0.6-1.2) mg/dl POC Creatinine 0.7 (0.6-1.3) mg/dl Est Cr Clr Drug Dosing 71.9 ml/min eGFR 88.23 BUN/Creatinine Ratio 18.8 (10-20) Glucose 141 H (70-99(Fasting)) mg/dl POC Glucose (other) 146 H (70-99) mg/dl Calcium 8.9 (8.6-10.3) mg/dl POC Ioniz Calcium Vibha 1.14 (1.12-1.32) mmol/l Magnesium 2.0 (1.7-2.4) mg/dl Total Bilirubin 0.6 (0.2-1.0) mg/dl AST 14 (13-39) U/L ALT 9 (7-52) U/L Alkaline Phosphatase 55 (34-104) U/L Total Creatine Kinase 35 (26-192) U/L Troponin I High Sens 4.1 (0-14) pg/ml Total Protein 8.3 (6.0-8.3) gm/dl Albumin 4.0 (3.4-5.0) gm/dl Globulin 4.3 H (2.5-4.0) gm/dl Albumin/Globulin Ratio 0.9 (0.9-2) Lipase 10 L (11-82) U/L TSH 0.010 L (0.300-4.500) uIu/ml Free T4 2.27 H (0.61-1.60) ng/dl SARS-CoV-2 (PCR) NEGATIVE (Negative) Influenza Type A (PCR) Negative (Neg) Influenza Type B (PCR) Negative (Neg) RSV (RT-PCR) Negative (Neg) Administered Medications Sodium Chloride (Nss) 1,000 mls @ 80 mls/hr IV .[id number] VALENTÍN Stop: 09/08/24 12:14 Last Admin: 09/07/24 12:28 Dose: 80 mls/hr Documented By: JOANNA Memantine (Memantine Hcl 5 Mg Tab) 5 mg PO BID VALENTÍN Stop: 10/07/24 13:56 Last Admin: 09/07/24 15:04 Dose: 5 mg Documented By: DENYS Discontinued Medications Piperacillin Sod/Tazobactam Sod (Zosyn) 4.5 gm in 100 mls @ 200 mls/hr IV NOW ONE; Protocol Stop: 09/07/24 10:03 Last Infusion: 09/07/24 11:32 Dose: Infused Documented By: Admin: 09/07/24 09:46 Dose: 200 mls/hr Documented By: JOANNA Ioversol (Optiray 320 125ml) 118 ml IV ONCE ONE Stop: 09/07/24 09:00 Last Admin: 09/07/24 08:59 Dose: 118 ml Documented By: DOMINIQUE Ondansetron HCl (Ondansetron Inj 2 Mg/Ml 2 Ml Vial) 4 mg IV NOW STA Stop: 09/07/24 08:44 Last Admin: 09/07/24 08:50 Dose: 4 mg Documented By: JOANNA Imaging Data Radiologist's Impression: Abdomen/Pelvis CT 09/07/24 08:[address] WITH IV CONTRAST CT DOSE: 3286.25 mGy.cm HISTORY: fall, syncope, left abd pain TECHNIQUE: Multiaxial CT images of the abdomen and pelvis were performed following the IV administration of 120 cc of Optiray, A dose lowering technique was utilized adhering to the principles of ALARA. COMPARISON STUDY: None FINDINGS: ABDOMEN: Liver, gallbladder, spleen, pancreas, kidneys, and adrenal glands show no evidence of acute injury. There are a few cysts in both kidneys, largest measuring 4 cm upper pole left kidney. There is a 1.5 cm nodule left adrenal gland with nonspecific density. No evidence of abdominal aortic injury or aneurysm. There are moderate atherosclerotic calcifications. Pelvis: Uterus and adnexa are grossly unremarkable. Urinary bladder is nondistended. There is proximal sigmoid diverticulosis. There is short segment wall thickening and inflammation at the proximal sigmoid colon consistent with acute diverticulitis. No free fluid, free air, or abscess. No enlarged adenopathy. Osseous structures: There is osteopenia. There is mild lumbar degenerative disc disease. No acute fracture seen at the visualized osseous structures. IMPRESSION: 1. No acute injury seen at the abdomen or pelvis. 2. Acute uncomplicated diverticulitis at the proximal sigmoid colon. 3. Nonspecific 1.5 cm nodule left adrenal gland. 4. Otherwise as described. ACT 112: Positive. There are findings on this exam that require communication between the performing entity and the patient following Patient Test Result Information Act ([place] Act 112) guidelines. The above report was generated using voice recognition software. It may contain grammatical, syntax or spelling errors. Electronically signed by: Madan Martines M.D. 09/07/2024 9:17 AM Chest CTA 09/07/24 08:28 CT angio chest PE protocol CT DOSE: 3286 HISTORY: PE, syncope, fall, left abd pain. TECHNIQUE: Multiple CTA images of the chest were obtained after the intravenous administration of 120 ml Optiray. Coronal and sagittal MIPS were obtained from the axial data set and were submitted for review. All measurements were obtained according to NASCET criteria. A dose lowering technique was utilized adhering to the principles of ALARA. COMPARISON STUDY: 04/04/2009 FINDINGS: There are mild airway secretions. There is mild atelectasis in the lung bases. There is no pneumonia, pleural effusion, or pneumothorax. No enlarged adenopathy. No mediastinal hematoma. No pericardial effusion. No thoracic aortic dissection or aneurysm. No pulmonary embolism. No acute fracture seen at the visualized osseous structures. IMPRESSION: No evidence of acute injury seen of the chest. No pulmonary embolism seen. ACT 112: Negative or not required by law. The above report was generated using voice recognition software. It may contain grammatical, syntax or spelling errors. Electronically signed by: Madan Martines M.D. 09/07/2024 9:[address] 09/07/24 08:29 CT cervical spine wo con CLINICAL HISTORY: fall. COMPARISON: None TECHNIQUE: Multiple axial CT images of the cervical spine were obtained without contrast. A dose lowering technique was utilized adhering to the principles of ALARA. FINDINGS: No cervical spine fracture or subluxation seen. There are mild diffuse degenerative changes. IMPRESSION: No cervical spine fracture seen. ACT 112: Negative or not required by law. The above report was generated using voice recognition software. It may contain grammatical, syntax or spelling errors. Electronically signed by: Madan Martines M.D. 09/07/2024 9:22 AM Chest X-Ray 09/07/24 08:29 XR chest 1V portable CLINICAL HISTORY: fall COMPARISON STUDY: 12/27/2022 FINDINGS: Stable mild cardiomegaly without pulmonary vascular congestion. No consolidation or pleural effusion. No pneumothorax. No grossly displaced rib fracture seen. IMPRESSION: No acute findings seen. ACT 112: Negative or not required by law. Electronically signed by: Madan Martines M.D. 09/07/2024 8:[address] 09/07/24 08:29 CT SCAN OF THE BRAIN WITHOUT IV CONTRAST CLINICAL HISTORY: Fall. Syncope. COMPARISON STUDY: CT of the brain dated 12/27/2022 TECHNIQUE: Unenhanced axial CT scan of the brain is performed from the vertex to the skull base. Images are reviewed in the axial, sagittal, coronal planes. A dose lowering technique was utilized adhering to the principles of ALARA. FINDINGS: Brain parenchyma: There is age-related involutional change noting moderate subcortical and periventricular microangiopathic disease. There is no hemorrhage, mass effect, or evidence of acute territorial ischemia by CT criteria. Mineralization is noted in the basal ganglia. Hunter-white matter differentiation is preserved. No extra-axial fluid collection is seen. Ventricles, sulci, cisterns: Prominent secondary to involutional change. Intracranial vasculature: There is atherosclerotic calcification of the cavernous carotid arteries. Calvarium: Unremarkable. Sinuses and mastoids: There is moderate mucosal thickening in the left maxillary antrum. Mild mucosal thickening is seen within the right frontal sinus, ethmoid sinuses, and the right sphenoid sinus. There is a right mastoid effusion. The left mastoid air cells are well pneumatized. Orbits: The bony orbits are grossly intact. IMPRESSION: There is no hemorrhage, mass effect, or evidence of acute territorial ischemia by CT criteria. ACT 112: Negative or not required by law. Electronically signed by: Paul Meeks M.D. 09/07/2024 9:18 AM Hip/Pelvis X-Ray 09/07/24 08:35 SINGLE VIEW PELVIS; 2 VIEWS LEFT HIP CLINICAL HISTORY: Fall with left hip pain. FINDINGS: An AP view of the pelvis with AP and frog-leg views of the left hip are obtained. No prior studies are available for comparison at the time of dictation. The skeletal structures are osteopenic. There is no radiographic evidence acute fracture involving the hips or bony pelvis. Mild arthritic change and joint space narrowing is seen in the hips. Degenerative sclerosis is noted in the sacroiliac joints. The overlying soft tissues are within normal limits. Tiny phlebolith are seen in the pelvis. IMPRESSION: No acute bony abnormality is identified. Electronically signed by: Paul Meeks M.D. 09/07/2024 8:53 AM Discharge Plan Visit Data Chief Complaint: Syncope Stated Complaint: SYNCOPE, FALL, VOMITED, WEAKNESS, DIZZY ED Provider: Tab Esqueda Discharge Problem: Syncope and collapse, Dementia, Nausea, Diverticulitis large intestine Patient Disposition: Being Evaluated by Hospitalist Condition: Fair Discharge Instructions Interventions: ED Discharge Assessment Last Done: 09/07/24 13:12 Discharge Problem: Diverticulitis large intestine Qualifiers: Diverticulitis bleeding: without bleeding Diverticulitis complication: without perforation or abscess Qualified Code(s): K57.32 - Diverticulitis of large intestine without perforation or abscess without bleeding
[2024-09-07] MEDS: ONDANSETRON INJ 2 MG/ML 2 ML VIAL IV STA (08:50)
--- NOTE | 2024-09-07 08:54 | XRay Report ---
SINGLE VIEW PELVIS; 2 VIEWS LEFT HIP CLINICAL HISTORY: Fall with left hip pain. FINDINGS: An AP view of the pelvis with AP and frog-leg views of the left hip are obtained. No prior studies are available for comparison at the time of dictation. The skeletal structures are osteopenic . There is no radiographic evidence acute fracture involving the hips or bony pelvis. Mild arthritic change and joint space narrowing is seen in the hips. Degenerative sclerosis is noted in the sacroili ac joints. The overlying soft tissues are within normal limits. Tiny phlebolith are seen in the pelvi s. IMPRESSION: No acute bony abnormality is identified. Electronically signed by: Paul Meeks M.D. 09/07/2024 8:53 AM
--- NOTE | 2024-09-07 08:55 | XRay Report ---
XR chest 1V portable CLINICAL HISTORY: fall COMPARISON STUDY: 12/27/2022 FINDINGS: Stable mild cardiomegaly without pulmonary vascular congestion. No consolidation or pleural effusion. No pneumothorax. No grossly displaced rib fracture seen. IMPRESSION: No acute findings seen. ACT 112: Negative or not required by law. Electronically signed by: Madan Martines M.D. 09/07/2024 8:54 AM
[2024-09-07 08:59] LABS: Hematocrit (blood only) 32.7 % (37.0-47.0); Hemoglobin 11.1 g/dl (12.0-16.0); Immature Granulocytes # (auto) 0.03 K/uL (0.01-0.20); Immature Granulocytes % (auto) 0.3 %; Mean Corpuscular Hemoglobin 30.4 pg (25.0-34.0); Mean Corpuscular Volume 89.6 fL (80.0-100.0); Platelet Count 216 K/uL (130-400); RDW Standard Deviation 44.6 fL (36.4-46.3); Red Blood Count 3.65 M/uL (4.20-5.40); White Blood Count 10.09 K/ul (4.8-10.8)
[2024-09-07] MEDS: OPTIRAY 320 125ml IV ONE (08:59)
[2024-09-07 09:15] LABS: Alanine Aminotransferase 9.0 U/L (7-52); Albumin Globulin Ratio 0.9 (0.9-2); Alkaline Phosphatase 55.0 U/L (34-104); Anion Gap 7.0 (3-11); Bilirubin,Total 0.6 mg/dl (0.2-1.0); Blood Urea Nitrogen 13.0 mg/dl (6-23); Calcium 8.9 mg/dl (8.6-10.3); Carbon Dioxide 20.0 mmol/L (21-32); Chloride 106.0 mmol/L (98-107); Creatine Kinase 35.0 U/L (26-192); Creatinine Clr Calc Pharmacy 71.9 ml/min; Globulin 4.3 gm/dl (2.5-4.0); Glucose 141.0 mg/dl (70-99(Fasting)); Lipase 10.0 U/L (11-82); Magnesium 2.0 mg/dl (1.7-2.4); Potassium 3.9 mmol/L (3.5-5.1); Sodium 133.0 mmol/L (136-145); Total Protein 8.3 gm/dl (6.0-8.3)
--- NOTE | 2024-09-07 09:19 | CT Scan Report ---
CT SCAN OF THE BRAIN WITHOUT IV CONTRAST CLINICAL HISTORY: Fall. Syncope. COMPARISON STUDY: CT of the brain dated 12/27/2022 TECHNIQUE: Unenhanced axial CT scan of the brain is performed from the vertex to the skull base. Imag es are reviewed in the axial, sagittal, coronal planes. A dose lowering technique was utilized adheri ng to the principles of ALARA. FINDINGS: Brain parenchyma: There is age-related involutional change noting moderate subcortical and periventri cular microangiopathic disease. There is no hemorrhage, mass effect, or evidence of acute territorial ischemia by CT criteria. Mineralization is noted in the basal ganglia. Hunter-white matter differentia tion is preserved. No extra-axial fluid collection is seen. Ventricles, sulci, cisterns: Prominent secondary to involutional change. Intracranial vasculature: There is atherosclerotic calcification of the cavernous carotid arteries. Calvarium: Unremarkable. Sinuses and mastoids: There is moderate mucosal thickening in the left maxillary antrum. Mild mucosal thickening is seen within the right frontal sinus, ethmoid sinuses, and the right sphenoid sinus. Th ere is a right mastoid effusion. The left mastoid air cells are well pneumatized. Orbits: The bony orbits are grossly intact. IMPRESSION: There is no hemorrhage, mass effect, or evidence of acute territorial ischemia by CT rafaela el. ACT 112: Negative or not required by law. Electronically signed by: Paul Meeks M.D. 09/07/2024 9:18 AM
--- NOTE | 2024-09-07 09:19 | CT Scan Report ---
ABDOMEN AND PELVIS CT WITH IV CONTRAST CT DOSE: 3286.25 mGy.cm HISTORY: fall, syncope, left abd pain TECHNIQUE: Multiaxial CT images of the abdomen and pelvis were performed following the IV administrat ion of 120 cc of Optiray, A dose lowering technique was utilized adhering to the principles of ALARA . COMPARISON STUDY: None FINDINGS: ABDOMEN: Liver, gallbladder, spleen, pancreas, kidneys, and adrenal glands show no evidence of acute injury. There are a few cysts in both kidneys, largest measuring 4 cm upper pole left kidney. There i s a 1.5 cm nodule left adrenal gland with nonspecific density. No evidence of abdominal aortic injury or aneurysm. There are moderate atherosclerotic calcifications. Pelvis: Uterus and adnexa are grossly unremarkable. Urinary bladder is nondistended. There is proxima l sigmoid diverticulosis. There is short segment wall thickening and inflammation at the proximal sig moid colon consistent with acute diverticulitis. No free fluid, free air, or abscess. No enlarged shannan nopathy. Osseous structures: There is osteopenia. There is mild lumbar degenerative disc disease. No acute fra cture seen at the visualized osseous structures. IMPRESSION: 1. No acute injury seen at the abdomen or pelvis. 2. Acute uncomplicated diverticulitis at the proximal sigmoid colon. 3. Nonspecific 1.5 cm nodule left adrenal gland. 4. Otherwise as described. ACT 112: Positive. There are findings on this exam that require communication between the performing entity and the patient following Patient Test Result Information Act ([place] Act 112) guidelines. The above report was generated using voice recognition software. It may contain grammatical, syntax o r spelling errors. Electronically signed by: Madan Martines M.D. 09/07/2024 9:17 AM
[2024-09-07 09:24] LABS: INR 1.1 (0.9-1.1); Prothrombin Time 12.0 Seconds (9.0-12.0)
--- NOTE | 2024-09-07 09:24 | CT Scan Report ---
CT cervical spine wo con CLINICAL HISTORY: fall. COMPARISON: None TECHNIQUE: Multiple axial CT images of the cervical spine were obtained without contrast. A dose low ering technique was utilized adhering to the principles of ALARA. FINDINGS: No cervical spine fracture or subluxation seen. There are mild diffuse degenerative changes . IMPRESSION: No cervical spine fracture seen. ACT 112: Negative or not required by law. The above report was generated using voice recognition software. It may contain grammatical, syntax o r spelling errors. Electronically signed by: Madan Martines M.D. 09/07/2024 9:22 AM
--- NOTE | 2024-09-07 09:29 | CT Scan Report ---
CT angio chest PE protocol CT DOSE: 3286 HISTORY: PE, syncope, fall, left abd pain. TECHNIQUE: Multiple CTA images of the chest were obtained after the intravenous administration of 120 ml Optiray. Coronal and sagittal MIPS were obtained from the axial data set and were submitted for review. All measurements were obtained according to NASCET criteria. A dose lowering technique was u tilized adhering to the principles of ALARA. COMPARISON STUDY: 04/04/2009 FINDINGS: There are mild airway secretions. There is mild atelectasis in the lung bases. There is no pneumonia, pleural effusion, or pneumothorax. No enlarged adenopathy. No mediastinal hematoma. No per icardial effusion. No thoracic aortic dissection or aneurysm. No pulmonary embolism. No acute fractur e seen at the visualized osseous structures. IMPRESSION: No evidence of acute injury seen of the chest. No pulmonary embolism seen. ACT 112: Negative or not required by law. The above report was generated using voice recognition software. It may contain grammatical, syntax o r spelling errors. Electronically signed by: Madan Martines M.D. 09/07/2024 9:26 AM
[2024-09-07 09:40] LABS: Influenza A virus by PCR Negative (Neg); Influenza B virus by PCR Negative (Neg); SARS CoV2 RNA(COVID-19) Ceph NEGATIVE (Negative)
[2024-09-07] MEDS: PIPERACILLIN/TAZOBACTAM 4.5 GM/100 ML BAG IV ONE (09:46)
--- NOTE | 2024-09-07 09:47 | History & Physical Report ---
<Statement entered by Rhoda Meadows MD - 09/07/24 12:17> 79 y/o with dementia, PAF on ASA and apixaban nausea L abdominal pain, unwitnessed fall vs syncope in kitchen, down 1-[address] - diverticulitis without perforation or abscess, uncomplicated, personally reviewed CT films. No fever or leukocytosis. Chronically anemic and at baseline Hg 11s EKG personally reviewed tracing - nsr, inverted T's in III, aVF, LVH On my exam awake and verbal, follows commands, poor short term memory and gives very vague answers. Can answer immediate questions about symptoms, knows she is in the hospital but not why, can tell me her daughter's name. Notable for no evidence of traumatic injury. No heart murmur. LLQ tenderness without r/r/g, +BT. LE wwp without swelling tenderness or significant edema. A/P: # fall from standing vs syncopal event, unable to determine -hx vasovagal syncope in the past as well as weak/lightheaded spells related to afib. Currently in NSR. -last Echo 12/2022 normal LVEF, mild asymmetric LVH, mild AI, event monitor 01/2023 with pac's -chronic anemia and Hg at baseline -probably weakness from acute diverticulitis causing a fall, vs orthostatic or vasovagal syncope # uncomplicated acute diverticulitis -pip-tazo -CLD -probably can advance diet and change to oral antibiotics tomorrow AM # mild HAGMA, mild hyponatremia 133 -IV fluids, BMP in AM # PAF -continue diltiazem, hold apixaban for now presuming head strike -I dont see a clear indication for her also to be on aspirin, per my review of previous primary care and cardiology notes #Asthma - not in exacerbation #HTN - stable #hypothyroidism - looks over-replaced and reduced levothyroxine # 1.5 cm left adrenal nodule - follow up with primary care - likely to be benign, further evaluation may not be beneficial when taking into account her advanced age / dementia / goals of care Date of Service September 07, 2024 Assessment & Plan (1) Fall: (2) Diverticulitis: (3) Paroxysmal atrial fibrillation: (4) Dementia: (5) Hypothyroidism: Plan This patient is a 79-year-old female who presented on 09/07 following an unwitnessed ground-level fall at home. #Fall | ? syncope Unwitnessed fall on apixaban Unclear if LOC or head strike occurred From patient / daughter history, operating under the assumption that there was a head strike, but no LOC Head/cervical spine CT on arrival without acute findings Additional imaging without acute fractures UA negative for signs of acute infection Suspect patient's legs gave out in the setting of acute GI infection; vasovagal syncope remains within the differential Orthostatic vitals ordered, pending Continues telemetry monitoring for now Fall precautions PT/OT evaluations appreciated #Uncomplicated acute diverticulitis Noted on A/P CT on arrival No leukocytosis; afebrile Clinically, patient does endorse nausea and LLQ abdominal pain Clear liquid diet for now and advance as tolerated Zosyn 4.5 g IV q8h IV antiemetics PRN NSS at 80 mL/hr x 2 L #PAF Rate controlled in NSR on arrival Continue metoprolol, diltiazem Will plan to hold Eliquis for 24 hours in the setting of suspected head trauma #Dementia Poor historian at baseline Continue memantine #Hypothyroidism TSH low at 0.01 Free T4 elevated at 2.27 Decrease levothyroxine from 100 mcg -> 88mcg daily #HLD Continue simvastatin Disposition: Obs -admit to MedSurg telemetry VTE PPx: TEDs; Hold Eliquis for now in the setting of presumed head trauma, will plan to restart the morning of 09/08 History of Present Illness Chief Complaint: Fall Primary Care Provider: Patricio Quigley DO Mrs. Otero is a 79-year-old female with PMH of dementia, paroxysmal atrial fibrillation, asthma, Prinzmetal angina, B12 deficiency, and depression. She presented on 09/07 following an unwitnessed fall. Patient is a poor historian at this time due to her history of underlying dementia, but cannot confirm that she is in the hospital for a fall that occurred this morning. She reports she awoke and went to the kitchen to turn on the water for her TV then her "legs wouldn't work". She is unsure if she passed out, but was only on the ground for a couple minutes before her daughter (Tish, whom she lives with) found her. Patient was unable to stand on her own. She also reports she attempted to crawl, but did not have the strength to move or get back up on her own. When asked if she felt dizzy or lightheaded before she fell, patient reports "possibly". She reports that it all "happened so quickly" and she does not remember the details. She does report she was feeling nauseous this morning, and that she is having intermittent left lower quadrant abdominal pain that she first noticed this morning. Patient did take her levothyroxine this morning, which is the only medication she manages on her own. Daughter manages the other medications. Daughter did confirm that she took her Eliquis last night, but not this morning. She does take this for history of atrial fibrillation. Patient does have a walker at home, but was not using it at the time. Patient denies smoking or tobacco use. She fell to the patient's vitals are stable at time of admission. ED course: Zosyn 4.5 g IV Zofran 4 mg IV ROS: Patient endorses lightheadedness when getting up, feeling off balance, SOB/chest palpitations (during episode after falling; attributes to anxiety), LLQ abdominal pain, nausea, one episode of vomiting in the kitchen, intermittent burning with urination, Patient denies fever, chills, night-sweats, dizziness, LEES, chest pain, cough, and diarrhea. Called patient's daughter (Tish) and provided update regarding labs/imaging/admission status. Daughter confirms that the patient has dementia at baseline, and is never "completely with it". However this morning, she was more out of it than usual. Daughter confirms that she heard a thump on the first floor, and went down to find her mother on the ground in the kitchen. The patient was awake at this time. Daughter reports she might of only been down for a couple minutes before she was found. Daughter denies prior history of stroke or seizures. Daughter reports no stroke like activity at that time (no slurred speech, facial droop, or unilateral deficits appreciated). Daughter confirms that the patient takes Eliquis twice daily for her history of atrial fibrillation, as well as a baby aspirin daily (which daughter believes is also due to history of A-fib). Daughter is unsure if patient struck her head as this was an unwitnessed fall. Daughter is unsure of prior history of diverticulitis. She reports her mother does have a history of falls with the last being 2 years ago. Patient's daughter (Tish) reports that she is her mother's main medical power of personal injury attorney, and confirms that the patient is a DNR/DNI. Allergies Allergy/AdvReac Type Severity Reaction Status Date / Time buspirone Allergy Unknown rash Verified 09/07/24 11:24 omeprazole Allergy Unknown rash Verified 09/07/24 11:24 sertraline AdvReac Gastrointestinal Verified 09/07/24 11:24 Upset Home Medications Medication Instructions Recorded Confirmed Type multivitamin with minerals 1 tab PO QAM 04/07/19 09/07/24 History (Hair,Skin and Nails tablet) aspirin 81 mg chewable tablet 81 mg PO QAM #90 tabs 01/01/23 09/07/24 Rx (Children's Aspirin) meclizine 25 mg tablet 25 mg PO TID PRN dizziness #90 tabs 01/08/23 09/07/24 Rx fluticasone propionate 50 1 spray intranasal BID PRN 03/27/23 09/07/24 Rx mcg/actuation nasal Congestion #48 mL spray,suspension cyanocobalamin (vitamin B-12) 1,000 mcg IM MONTHLY #10 mL 10/30/23 09/07/24 Rx 1,000 mcg/mL injection solution syringe with needle 3 mL 25 gauge #10 ea 10/30/23 10/30/23 Rx x 1" memantine 5 mg tablet 5 mg PO BID #180 tabs 04/02/24 09/07/24 Rx mirtazapine 7.5 mg tablet 7.5 mg PO PM #90 tabs 04/02/24 09/07/24 Rx levothyroxine 100 mcg tablet 100 mcg PO QAM #90 tabs 04/26/24 09/07/24 Rx apixaban 5 mg tablet (Eliquis) 0 mg PO BID 09/07/24 09/07/24 History nitroglycerin 0.4 mg sublingual 0.4 mg sublingual DIRECTED PRN 09/07/24 09/07/24 History tablet (Nitrostat) Chest Pain Past Med/Surg History Problem List (Updated 09/07/24 @ 11:30 by Anastacio Richard PA-C) Fall Hypothyroidism Diverticulitis Diverticulitis large intestine (Acute) Nausea (Acute) Syncope and collapse (Acute) Vitamin D deficiency Sensorineural hearing loss (SNHL) of right ear with restricted hearing of left ear B12 deficiency Anemia HX Ataxia Hearing loss Paroxysmal atrial fibrillation Nausea & vomiting (Acute) Dementia (Acute) GERD (gastroesophageal reflux disease) Elevated hemoglobin A1c Hypothyroid Atypical chest pain Pre-syncope Prinzmetal's angina (Acute) Osteopenia (Acute) Asthma Depression (Chronic) Medical History Anemia Anxiety Asthma Atrial fibrillation with rapid ventricular response Chest pain Chronic pain Depression GERD (gastroesophageal reflux disease) GERD without esophagitis Heart murmur Hypercholesterolemia Hypertension Hypertension Hypolipidemia Hypothyroidism Hypothyroidism Hypothyroidism Menopause Osteopenia Right asymmetrical SNHL Vasovagal syncope Vitamin D deficiency Surgical History History of cardiac cath S/P colonoscopy S/P tubal ligation S/P wisdom tooth extraction Family History Grandmother Breast cancer Brother Family history of diabetes mellitus Myocardial infarction Family hx of colon cancer Father Lung cancer Sister Family history of diabetes mellitus Other No significant family history Denies family history of Ovarian cancer Prostate cancer Colorectal cancer Social History Smoking Status: Never smoker Second Hand Exposure: No; Do You Dip or Chew Tobacco: No; Hx Alcohol Use: No Hx Substance Use: No Preferred Language: Nigerien Communication Ability: Effective Visual Impairment: No Limitations Hearing Ability: Hard of Hearing 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 Beliefs That Will Affect Care: None marital status: / Current Living Situation: Family Current Living Situation Comment: daughter and grandchildren live with her current occupational status: retired How many Children do You have: 4 Feels Safe at Home: Yes Childhood Exposure to Second-Hand Smoke: Yes Diet: regular caffeine: Yes during the past year weight has: remained stable Dental Care, Regularly: No Physical Activity Frequency: Does not Exercise Seatbelt Use: always Sunscreen Use: Yes Assistive Devices: Walker Review of Systems Review of Systems: See HPI above Physical Exam Physical Exam: General: no acute distress; pleasant affect; non-toxic appearing; frail appearing; cooperative; SpO2 95% on RA HEENT: normocephalic, atraumatic; no scleral icterus; PERRLA w/ EOMs intact; vision intact; hard of hearing; patient demonstrates ability to smile, frown, and lift eyebrows without unilateral deficits; patient demonstrates the ability to protrude and wiggle tongue bilaterally without unilateral deficits Neck: supple; trachea midline Skin: warm, dry without signs of tenting; no cyanosis; no rashes, bruising, lesions, or erythema noted CV: chest wall NTP; RRR; S1/S2 normal; no murmurs/rubs/gallops; pulses intact and symmetric at radial, DP, and PT Lungs: no acute respiratory distress; symmetrical chest wall expansion; clear breath sounds across all lung das w/o adventitious sounds; no wheezing ABD: Soft, TTP in the LLQ; no rashes or bruising noted on the abdomen or flanks bilaterally BS present; no rebound/guarding; no distention MSK: no tics or fasciculations; no edema noted in the LEs b/l, nonerythematous; 5/5 photo 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 strength bilaterally; 2/5 strength when lifting legs and lower extremities bilaterally Neuro: Patient is alert and oriented to name, , location, and purpose in the hospital; she is not oriented to month the year; she also struggles to articulate and respond to certain questions; she reports most of the events of today are difficult to remember;; normal mood and affect; fluent speech; no facial droop; no focal deficits; patient reports sensation is intact and symmetric in the face/upper extremity/lower extremities bilaterally Results & Data Results & Data Vital Signs (Past 12 Hours) Vital Signs Temp Pulse Resp BP Pulse Ox O2 Del Method 09/07/24 08:42 95 Room Air 09/07/24 08:42 83 16 95 Room Air 09/07/24 08:41 72 09/07/24 08:37 36.9 C 83 16 122/95 96 Room Air Laboratory Results Abnormal lab results 09/07/24 09/07/24 Range/Units 08:38 08:43 RBC 3.65 L (4.20-5.40) M/uL Hgb 11.1 L (12.0-16.0) g/dl POC Hgb 11.6 L (12.0-16.0) g/dl Hct 32.7 L (37.0-47.0) % POC Hct 34 L (37-47) % Neut # (Auto) 8.61 H (1.40-6.50) K/uL Lymph # (Auto) 0.71 L (1.20-3.40) K/uL Haines # (Auto) 0.65 H (0.11-0.59) K/uL Sodium 133 L (136-145) mmol/L Carbon Dioxide 20 L (21-32) mmol/L POC Total CO2 20 L (24-31) mmol/L POC Anion Gap 15.0 L (16-25) mmol/L Glucose 141 H (70-99(Fasting)) mg/dl POC Glucose (other) 146 H (70-99) mg/dl Globulin 4.3 H (2.5-4.0) gm/dl Lipase 10 L (11-82) U/L Diagnostic Findings Abdomen/Pelvis CT 09/07/24 08:[address] WITH IV CONTRAST CT DOSE: 3286.25 mGy.cm HISTORY: fall, syncope, left abd pain TECHNIQUE: Multiaxial CT images of the abdomen and pelvis were performed following the IV administration of 120 cc of Optiray, A dose lowering technique was utilized adhering to the principles of ALARA. COMPARISON STUDY: None FINDINGS: ABDOMEN: Liver, gallbladder, spleen, pancreas, kidneys, and adrenal glands show no evidence of acute injury. There are a few cysts in both kidneys, largest measuring 4 cm upper pole left kidney. There is a 1.5 cm nodule left adrenal gland with nonspecific density. No evidence of abdominal aortic injury or aneurysm. There are moderate atherosclerotic calcifications. Pelvis: Uterus and adnexa are grossly unremarkable. Urinary bladder is nondistended. There is proximal sigmoid diverticulosis. There is short segment wall thickening and inflammation at the proximal sigmoid colon consistent with acute diverticulitis. No free fluid, free air, or abscess. No enlarged adenopathy. Osseous structures: There is osteopenia. There is mild lumbar degenerative disc disease. No acute fracture seen at the visualized osseous structures. IMPRESSION: 1. No acute injury seen at the abdomen or pelvis. 2. Acute uncomplicated diverticulitis at the proximal sigmoid colon. 3. Nonspecific 1.5 cm nodule left adrenal gland. 4. Otherwise as described. ACT 112: Positive. There are findings on this exam that require communication between the performing entity and the patient following Patient Test Result Information Act ([place] Act 112) guidelines. The above report was generated using voice recognition software. It may contain grammatical, syntax or spelling errors. Electronically signed by: Madan Martines M.D. 09/07/2024 9:17 AM Chest CTA 09/07/24 08:28 CT angio chest PE protocol CT DOSE: 3286 HISTORY: PE, syncope, fall, left abd pain. TECHNIQUE: Multiple CTA images of the chest were obtained after the intravenous administration of 120 ml Optiray. Coronal and sagittal MIPS were obtained from the axial data set and were submitted for review. All measurements were obtained according to NASCET criteria. A dose lowering technique was utilized adhering to the principles of ALARA. COMPARISON STUDY: 04/04/2009 FINDINGS: There are mild airway secretions. There is mild atelectasis in the lung bases. There is no pneumonia, pleural effusion, or pneumothorax. No enlarged adenopathy. No mediastinal hematoma. No pericardial effusion. No thoracic aortic dissection or aneurysm. No pulmonary embolism. No acute fracture seen at the visualized osseous structures. IMPRESSION: No evidence of acute injury seen of the chest. No pulmonary embolism seen. ACT 112: Negative or not required by law. The above report was generated using voice recognition software. It may contain grammatical, syntax or spelling errors. Electronically signed by: Madan Martines M.D. 09/07/2024 9:[address] 09/07/24 08:29 CT cervical spine wo con CLINICAL HISTORY: fall. COMPARISON: None TECHNIQUE: Multiple axial CT images of the cervical spine were obtained without contrast. A dose lowering technique was utilized adhering to the principles of ALARA. FINDINGS: No cervical spine fracture or subluxation seen. There are mild diffuse degenerative changes. IMPRESSION: No cervical spine fracture seen. ACT 112: Negative or not required by law. The above report was generated using voice recognition software. It may contain grammatical, syntax or spelling errors. Electronically signed by: Madan Martines M.D. 09/07/2024 9:22 AM Chest X-Ray 09/07/24 08:29 XR chest 1V portable CLINICAL HISTORY: fall COMPARISON STUDY: 12/27/2022 FINDINGS: Stable mild cardiomegaly without pulmonary vascular congestion. No consolidation or pleural effusion. No pneumothorax. No grossly displaced rib fracture seen. IMPRESSION: No acute findings seen. ACT 112: Negative or not required by law. Electronically signed by: Madan Martines M.D. 09/07/2024 8:[address] 09/07/24 08:29 CT SCAN OF THE BRAIN WITHOUT IV CONTRAST CLINICAL HISTORY: Fall. Syncope. COMPARISON STUDY: CT of the brain dated 12/27/2022 TECHNIQUE: Unenhanced axial CT scan of the brain is performed from the vertex to the skull base. Images are reviewed in the axial, sagittal, coronal planes. A dose lowering technique was utilized adhering to the principles of ALARA. FINDINGS: Brain parenchyma: There is age-related involutional change noting moderate subcortical and periventricular microangiopathic disease. There is no hemorrhage, mass effect, or evidence of acute territorial ischemia by CT criteria. Mineralization is noted in the basal ganglia. Hunter-white matter differentiation is preserved. No extra-axial fluid collection is seen. Ventricles, sulci, cisterns: Prominent secondary to involutional change. Intracranial vasculature: There is atherosclerotic calcification of the cavernous carotid arteries. Calvarium: Unremarkable. Sinuses and mastoids: There is moderate mucosal thickening in the left maxillary antrum. Mild mucosal thickening is seen within the right frontal sinus, ethmoid sinuses, and the right sphenoid sinus. There is a right mastoid effusion. The left mastoid air cells are well pneumatized. Orbits: The bony orbits are grossly intact. IMPRESSION: There is no hemorrhage, mass effect, or evidence of acute territorial ischemia by CT criteria. ACT 112: Negative or not required by law. Electronically signed by: Paul Meeks M.D. 09/07/2024 9:18 AM Hip/Pelvis X-Ray 09/07/24 08:35 SINGLE VIEW PELVIS; 2 VIEWS LEFT HIP CLINICAL HISTORY: Fall with left hip pain. FINDINGS: An AP view of the pelvis with AP and frog-leg views of the left hip are obtained. No prior studies are available for comparison at the time of dictation. The skeletal structures are osteopenic. There is no radiographic evidence acute fracture involving the hips or bony pelvis. Mild arthritic change and joint space narrowing is seen in the hips. Degenerative sclerosis is noted in the sacroiliac joints. The overlying soft tissues are within normal limits. Tiny phlebolith are seen in the pelvis. IMPRESSION: No acute bony abnormality is identified. Electronically signed by: Paul Meeks M.D. 09/07/2024 8:53 AM ECG Additional Comments: ECG revealed NSR at 80 bpm; QTc 461 Code Status & VTE Plan Code Status DNR/DNI (confirmed with patient's daughter/medical POA) VTE Prophylaxis Plan VTE Prophylaxis will be ordered: Yes PG Care Time/CCT Total # of Minutes Spent Total Time Spent with Patient: Total time spent is greater than 50% in coordination of care (as documented) at patient's floor/unit and/or counseling patient: Coding [place] [address] INT INP/OBS CARE 3/75MIN Patient Type Established History Comprehensive Exam Comprehensive Medical Decision Making High Complexity Diagnoses Fall W19.XXXA Diverticulitis K57.92 Paroxysmal atrial fibrillation I48.0 Dementia without behavioral disturbance, psychotic disturbance, mood disturbance, or anxiety, unspecified dementia severity, unspecified dementia type F03.90 Hypothyroidism E03.9
--- NOTE | 2024-09-07 09:51 | Communication Note ---
Date of Service: September 07, 2024 79 y/o with dementia, PAF on ASA and apixaban nausea, syncope in kitchen, down 1-2 min. L abdominal pain CT - diverticulitis without perforation or abscess, uncomplicated, personally reviewed CT films. No fever or leukocytosis. Chronically anemic and at baseline Hg 11s EKG personally reviewed tracing - nsr, inverted T's in III, aVF, LVH A/P: # syncope, fall from standing -hx vasovagal syncope in the past as well as weak/lightheaded spells related to afib. Currently in NSR. -last Echo 12/2022 normal LVEF, mild asymmetric LVH, mild AI, event monitor 01/2023 with pac's -chronic anemia and Hg at baseline -probably orthostatic or vasovagal related to acute diverticulitis # uncomplicated acute diverticulitis # mild HAGMA, mild hyponatremia 133 # PAF -continue apixaban, diltiazem #Asthma #HTN #hypothyroidism # 1.5 cm left adrenal nodule
[2024-09-07 10:33] LABS: Thyroid Stimulating Hormone 0.01 uIu/ml (0.300-4.500)
--- NOTE | 2024-09-07 11:21 | Electrocardiogram Report ---
Test Reason : Blood Pressure : */* mmHG Vent. Rate : 80 BPM Atrial Rate : 80 BPM P-R Int : 126 ms QRS Dur : 86 ms QT Int : 400 ms P-R-T Axes : 39 -5 3 degrees QTcB Int : 461 ms Normal sinus rhythm Minimal voltage criteria for LVH, may be normal variant ( R in aVL ) Borderline ECG When compared with ECG of 29-Dec-2022 12:35, Sinus rhythm has replaced Atrial fibrillation Inverted T waves have replaced nonspecific T wave abnormality in Inferior leads Confirmed by Jeanmarie Cabrera ([id number]) on 09/07/2024 11:21:32 AM Referred By: Confirmed By: Jeanmarie Cabrera
[2024-09-07 11:25] LABS: Appearance Urine Clear (Clear); Bacteria Urine Automated None Seen (None Seen); Cast Urine Automated 0-2 /lpf (0-2); Epithelial Cell Urine Auto 0-2 /hpf (0-2); Glucose Urine UA Negative (Negative); RBC Urine Automated 0-2 /hpf (0-2); WBC Urine Automated 0-5 /hpf (0-5)
[2024-09-07] MEDS: SODIUM CHLORIDE 0.9% 1,000 ML IV SCH (12:28)
[2024-09-07] MEDS ORDERED: MECLIZINE HCL 25 MG TAB PO PRN (13:57)
[2024-09-07] MEDS ORDERED: ONDANSETRON INJ 2 MG/ML 2 ML VIAL IV PRN (13:57)
[2024-09-07] MEDS: MEMANTINE HCL 5 MG TAB PO SCH (15:04)
[2024-09-07] MEDS: PIPERACILLIN/TAZOBACTAM 4.5 GM/100 ML BAG IV SCH (17:01)
[2024-09-07 20:03] VITALS: RESP 20
[2024-09-07] MEDS: MIRTAZAPINE TAB 15 MG TAB PO SCH (21:53)
[2024-09-08] MEDS: ACETAMINOPHEN 325 MG TAB PO PRN (00:45)
[2024-09-08] MEDS: LEVOTHYROXINE SODIUM 88 MCG TABLET PO SCH (05:40)
[2024-09-08 07:23] LABS: Hematocrit (blood only) 31.8 % (37.0-47.0); Hemoglobin 10.8 g/dl (12.0-16.0); Immature Granulocytes # (auto) 0.02 K/uL (0.01-0.20); Immature Granulocytes % (auto) 0.3 %; Mean Corpuscular Hemoglobin 30.7 pg (25.0-34.0); Mean Corpuscular Volume 90.3 fL (80.0-100.0); Platelet Count 186 K/uL (130-400); RDW Standard Deviation 45.0 fL (36.4-46.3); Red Blood Count 3.52 M/uL (4.20-5.40); White Blood Count 6.73 K/ul (4.8-10.8)
[2024-09-08 07:39] LABS: Anion Gap 6.0 (3-11); Blood Urea Nitrogen 9.0 mg/dl (6-23); Calcium 8.4 mg/dl (8.6-10.3); Carbon Dioxide 22.0 mmol/L (21-32); Chloride 111.0 mmol/L (98-107); Creatinine Clr Calc Pharmacy 61.8 ml/min; Glucose 99.0 mg/dl (70-99(Fasting)); Potassium 3.5 mmol/L (3.5-5.1); Sodium 139.0 mmol/L (136-145)
[2024-09-08 08:34] LABS: Alanine Aminotransferase 8.0 U/L (7-52); Alkaline Phosphatase 47.0 U/L (34-104); Bilirubin,Total 0.8 mg/dl (0.2-1.0); Total Protein 7.3 gm/dl (6.0-8.3)
[2024-09-08] MEDS: APIXABAN 5 MG TABLET PO SCH (09:41)
[2024-09-08] MEDS: ASPIRIN 81 MG ECTAB PO SCH (09:41)
[2024-09-08] MEDS: AMOXICILLIN/CLAVULANATE 875 MG TAB PO SCH (09:42)
[2024-09-08] MEDS ORDERED: PHA DELIRIUM CONSULT PRN (10:27)
[2024-09-08 11:30] VITALS: BP 114/68; PULSE 90; TEMP 98.4; O2SAT 95
--- NOTE | 2024-09-08 12:22 | Discharge Summary ---
Discharge Summary Date of Service September 08, 2024 Principal Dx & Hospital Course #1 = Principal Diagnosis (1) Fall: Etiology of fall remains unclear; patient landed on her left hip, but has sustained no acute left hip fracture (as noted on 09/07/2024, 8:35 left hip/pelvis x-ray, which is negative for acute left hip fracture). In addition, CT brain without contrast (09/07/2024, 8:29am) was negative for acute bleed, mass, or midline shift. In addition, CT cervical spine without contrast (09/07/2024, 8:29am) was negative for acute cervical fracture or dislocation. In addition, CTA chest (09/07/2024, 8:29am) was negative for acute injury and acute PE. In addition, CT abd/pelvis with IV contrast (09/07/2024, 8:29am) was negative for acute injury; positive for acute uncomplicated proximal sigmoid diverticulitis and non-specific 1.5cm nodule @ left adrenal gland. Patient states to me that she did not lose consciousness prior to falling and landing on her left hip. Patient states that she "tripped on my feet and then I fell." Patient was subsequently evaluated by PT/OT Services and cleared for discharge back to her own home with live-in daughter and 3 granddaughters on 09/08/2024. (2) Diverticulitis: Patient remained afebrile with no complaints of chills, diaphoresis, nausea, vomiting, diarrhea, abdominal pain, pelvic pain, flank pain, etc. on 09/08/2024. In addition, patient's WBC remained normal throughout hospitalization: cf., WBC 10.09, N85 L 7 M6 E1 (09/07/2024, 8:38am). cf., WBC 6.73, N75 L15 M6 E3 (09/08/2024, 6:59am). Patient received zosyn 4.5g IV q8 x 3 doses (09/07/2024, 9:46am, 5:01pm; 08/24, 1:39am), followed by augmentin 875mg/125mg PO bid x 1 dose (09/08/2024, 9:42am) very well without any complaints. Patient also drank 1 can of Coca Cola for breakfast (09/08/2024, 9:18am) without any complaints. Patient asked to be discharged back to her home given her lack of complaints. Patient was subsequently discharged back to her own home with live-in daughter and 3 granddaughters on 09/08/2024. To this end, patient's [id number], [address] [place] [address], received an electronic prescription for augmentin 875mg/125mg PO bid, #13 capsules, no refills. Patient was also advised to follow up with her PCP Dr. Patricio Quigley within 5-7 days of hospital discharge for routine follow up visit and to: (1) arrange for outpatient CT abd/pelvis with IV contrast in 6-8 weeks to ensure that acute, mild proximal sigmoid diverticulitis (as noted on 09/07/2024, 8:[address] abd/pelvis with IV contrast) has RESOLVED, and that colon carcinoma is not masquerading as acute, mild proximal sigmoid diverticulitis. Patient reports that she will comply with this recommendation. (3) Paroxysmal atrial fibrillation: cf., EKG (09/07/2024, 8:31am): NSR @ 80, SD 126, QTC 461, TWI in III, no acute ST depressions/elevations (by my review). cf., EKG (12/28/2022, 12:56pm): NSR @ 76, SD 138, QTC 456, TWI in III, no acute ST depressions/elevations (by my review). Patient received her home-scheduled apixaban 5mg PO bid while in [facility]. Patient will continue this medication on hospital discharge back to her own home with live-in daughter and 3 granddaughters on 09/08/2024. Of note, patient did not require any rate-controlling medication or rhythm- controlling medication while in [facility]. Patient was subsequently discharged back to her own home with live-in daughter and 3 granddaughters on 09/08/2024 without any rate-controlling medication or rhythm- controlling medication. 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 Patient received this medication while in [facility] and will continue this home-scheduled medication on hospital discharge back to her own home with live-in daughter and 3 granddaughters on 09/08/2024. (5) Hypothyroidism: Chronic hypothyroidism on home-scheduled synthroid 100ug PO qam. cf., TSH level low at 0.01 uIU/mL (09/07/2024, 8:38am). cf., free T4 level high at 2.27 ng/dL (09/07/2024, 8:38am), suggesting that patient is hyperthyroid while taking home-scheduled synthroid 100ug PO daily; but: cf., free T3 level normal at 2.48 pg/mL (09/08/2024, 8:23am), suggesting that patient is actually euthyroid on synthroid 100ug PO daily as free T3 is the predominant, biologically active form of thyroid hormone in the human body. Hence, no dose adjustment in home-scheduled synthroid 100ug PO daily is warranted at this time. Patient was subsequently advised to undergo repeat TSH level testing in 6-8 weeks while continuing her home-scheduled synthroid 100ug PO daily on hospital discharge back to her own home with live-in daughter and 3 grandddaughters on 09/08/2024. Plan 79 years old female with PMH of DNR/DNI @ her own home with live-in daughter and 3 granddaughters, overweight with BMI 27.3 (height 170.2 cm; weight 79.1 kg), mild Alzheimer's dementia without behavioral disturbances, on memantine 5mg PO bid, insomnia disorder on mirtazapine 7.5mg PO qpm, allergic rhinitis on fluticasone propionate 50ug/spray, 1 spray to each nostril bid prn allergic rhinitis, hypothyroidism on synthroid 100ug PO qam, and paroxysmal AFIB on home-scheduled apixaban 5mg PO bid, not on any rate-controlling medication or rhythm-controlling medication, who came to [facility] ER on 09/08/2024 after unwitnessed ground-level fall at her own home with live-in daughter and 3 granddaughters on 09/08/2024. Patient was subsequently admitted to [facility] on 09/08/2024 with the following diagnoses: 1. Mechanical fall at home onto left hip/floor. No left hip fracture. 2. Acute, mild, proximal signoid diverticulitis without fevers, chills, diaphoresis, nausea, vomit, diarrhea, abdominal pain; no perforation; normal WBC, and drinking Coca Cola at bedside fine on 09/08/2024. Initial Plan of Action in [facility] ER included: #Fall | ? syncope Unwitnessed fall on apixaban Unclear if LOC or head strike occurred From patient / daughter history, operating under the assumption that there was a head strike, but no LOC Head/cervical spine CT on arrival without acute findings Additional imaging without acute fractures UA negative for signs of acute infection Suspect patient's legs gave out in the setting of acute GI infection; vasovagal syncope remains within the differential Orthostatic vitals ordered, pending Continues telemetry monitoring for now Fall precautions PT/OT evaluations appreciated #Uncomplicated acute diverticulitis Noted on A/P CT on arrival No leukocytosis; afebrile Clinically, patient does endorse nausea and LLQ abdominal pain Clear liquid diet for now and advance as tolerated Zosyn 4.5 g IV q8h IV antiemetics PRN NSS at 80 mL/hr x 2 L #PAF Rate controlled in NSR on arrival Continue metoprolol, diltiazem Will plan to hold Eliquis for 24 hours in the setting of suspected head trauma #Dementia Poor historian at baseline Continue memantine #Hypothyroidism TSH low at 0.01 Free T4 elevated at 2.27 Decrease levothyroxine from 100 mcg -> 88mcg daily #HLD Continue simvastatin Disposition: Obs -admit to [facility] telemetry VTE PPx: TEDs; Hold Eliquis for now in the setting of presumed head trauma, will plan to restart the morning of 09/08 Admission HPI Per Admitting Provider Mrs. Otero is a 79-year-old female with PMH of dementia, paroxysmal atrial fibrillation, asthma, Prinzmetal angina, B12 deficiency, and depression. She presented on 09/07 following an unwitnessed fall. Patient is a poor historian at this time due to her history of underlying dementia, but cannot confirm that she is in the hospital for a fall that occurred this morning. She reports she awoke and went to the kitchen to turn on the water for her TV then her "legs wouldn't work". She is unsure if she passed out, but was only on the ground for a couple minutes before her daughter (Tish, whom she lives with) found her. Patient was unable to stand on her own. She also reports she attempted to crawl, but did not have the strength to move or get back up on her own. When asked if she felt dizzy or lightheaded before she fell, patient reports "possibly". She reports that it all "happened so quickly" and she does not remember the details. She does report she was feeling nauseous this morning, and that she is having intermittent left lower quadrant abdominal pain that she first noticed this morning. Patient did take her levothyroxine this morning, which is the only medication she manages on her own. Daughter manages the other medications. Daughter did confirm that she took her Eliquis last night, but not this morning. She does take this for history of atrial fibrillation. Patient does have a walker at home, but was not using it at the time. Patient denies smoking or tobacco use. She fell to the patient's vitals are stable at time of admission. ED course: Zosyn 4.5 g IV Zofran 4 mg IV ROS: Patient endorses lightheadedness when getting up, feeling off balance, SOB/chest palpitations (during episode after falling; attributes to anxiety), LLQ abdomi nal pain, nausea, one episode of vomiting in the kitchen, intermittent burning with urination, Patient denies fever, chills, night-sweats, dizziness, LEES, chest pain, cough, and diarrhea. Called patient's daughter (Tish) and provided update regarding labs/imaging/admission status. Daughter confirms that the patient has dementia at baseline, and is never "completely with it". However this morning, she was more out of it than usual. Daughter confirms that she heard a thump on the first floor, and went down to find her mother on the ground in the kitchen. The patient was awake at this time. Daughter reports she might of only been down for a couple minutes before she was found. Daughter denies prior history of stroke or seizures. Daughter reports no stroke like activity at that time (no slurred speech, facial droop, or unilateral deficits appreciated). Daughter confirms that the patient takes Eliquis twice daily for her history of atrial fibrillation, as well as a baby aspirin daily (which daughter believes is also due to history of A-fib). Daughter is unsure if patient struck her head as this was an unwitnessed fall. Daughter is unsure of prior history of diverticulitis. She reports her mother does have a history of falls with the last being 2 years ago. Patient's daughter (Tish) reports that she is her mother's main medical power of estate attorney, and confirms that the patient is a DNR/DNI. Discharge Exam Constitutional General: Comfortable, coherent, and cooperative. Not confused, obtunded, or lethargic. Patient speaks with regular ladan, and in complete, fluent, and articulate 7-9 word sentences without pause, interruption, cough, or wheeze with O2 sat 95% on room air (09/08/2024, 12:12pm). HEENT: Normocephalic, atraumatic. No nystagmus, gaze paresis, anisocoria, miosis, mydriasis, hyphema, scleral injection, conjunctivitis, or pterygium. No otorrhea or rhinorrhea. No pharyngeal erythema, edema, or discharge. Neck: Supple, no stridor, bruit, goiter, or hepato-jugular reflux. Jugular venous pressure is estimated to be 3 cm above the sternal angle of Newton, which in turn, is 5 cm above the level of the right atrium; with jugular venous pressure estimated to be 8 cm, then, there is no jugular venous distention on 09/08/2024. Lymphatics: No cervical (anterior/posterior), supraclavicular, infraclavicular, axillary, epitrochlear, or inguinal adenopathy. Chest: Symmetric rise and fall with respirations. Non-tender to palpation. Lungs: Clear to auscultation and percussion. Heart: Regular rate and rhythm. S1 and S2 noted. No S3 or S4 summation gallop. No tripartite friction rub. Grade II/ early systolic murmur @ LLSB without radiation to the carotids, axilla, or back, and which remains invariant in regards to the respiratory cycle. Abdomen: Soft, non-tender, non-distended. No rebound, guarding, Morrissey's sign, or organomegaly. Bowel sounds auscultated in all 4 quadrants. Extremities: No clubbing, cyanosis, or edema. Skin: No decubitus ulcer or enanthem or exanthem. Neuro: Awake and oriented in regards to person, place, time, and situation. DTR+. 5/5 motor strength in all 4 extremities, both proximally and distally. No myoclonus or tics or tremors. Genito-urinary: No urethral discharge. No wharton catheter. Discharge Plan Discharge Items Patient Disposition: Home - Self-Care Reason For Visit: FALL, DIVERTICULITIS; ? SYNCOPE Discharge Diagnosis: 1. Mechanical fall at home onto left hip/floor. No left hip fracture. 2. Acute, mild, proximal signoid diverticulitis without fevers, chills, diaphoresis, nausea, vomit, diarrhea, abdominal pain; no perforation; normal WBC, and drinking Coca Cola at bedside fine on 09/08/2024. 3. No syncope. Condition on Discharge: Fair Activity: Resume your previous activity Lifting: Gradually increase as tolerated Bathing: No limitations Exercise/Sports: Gradually increase as tolerated Weightbearing: Full weightbearing Non-emergency contact: Primary Care Provider Call non-emergency contact if: you have any medication questions Follow-up/Referrals: Patricio Quigley, [Primary Care Provider] - 09/17/24 11:00 am Diet: Low Fiber Addtl Attending Provider Instructions: See your PCP Dr. Patricio Quigley within 5-7 days of hospital discharge for routine follow up visit and to: (1) arrange for outpatient CT abd/pelvis with IV contrast in 6-8 weeks to ensure that acute, mild proximal sigmoid diverticulitis (as noted on 09/07/2024, 8:[address] abd/pelvis with IV contrast) has RESOLVED, and that colon carcinoma is not masquerading as acute, mild proximal sigmoid diverticulitis. (2) arrange for outpatient TSH level testing in 6-8 weeks, as your TSH level was low at 0.01 uIU/mL (09/07/2024, 8:38am) and your free T4 level was high at 2.27 ng/dL (09/07/2024, 8:38am), suggesting that you were hyperthyroid while taking your home-scheduled synthroid 100ug PO daily; subsequently, your free T3 level was normal at 2.48 pg/mL (09/08/2024, 8:23am), so you are actually euthyroid on synthroid 100ug PO daily as free T3 is the predominant, biologically active form of thyroid hormone in the human body. Hence, no dose adjustment in your home- scheduled synthroid 100ug PO daily is warranted at this time. Pending Studies at Discharge: Yes Studies:: See your PCP Dr. Patricio Quigley within 5-7 days of hospital discharge for routine follow up visit and to: (1) arrange for outpatient CT abd/pelvis with IV contrast in 6-8 weeks to ensure that acute, mild proximal sigmoid diverticulitis (as noted on 09/07/2024, 8:[address] abd/pelvis with IV contrast) has RESOLVED, and that colon carcinoma is not masquerading as acute, mild proximal sigmoid diverticulitis. (2) arrange for outpatient TSH level testing in 6-8 weeks, as your TSH level was low at 0.01 uIU/mL (09/07/2024, 8:38am) and your free T4 level was high at 2.27 ng/dL (09/07/2024, 8:38am), suggesting that you were hyperthyroid while taking your home-scheduled synthroid 100ug PO daily; subsequently, your free T3 level was normal at 2.48 pg/mL (09/08/2024, 8:23am), so you are actually euthyroid on synthroid 100ug PO daily as free T3 is the predominant, biologically active form of thyroid hormone in the human body. Hence, no dose adjustment in your home- scheduled synthroid 100ug PO daily is warranted at this time. Stand-Alone Forms: [facility] [employer], Smoking Cessation Medications and DC Order Prescriptions: New amoxicillin-pot clavulanate 875-125 mg Tablet 1 tab PO BIDM Qty: 13 0RF Continued fluticasone propionate 50 mcg/actuation spray,suspension 1 spray intranasal BID PRN (Reason: Congestion) Qty: 48 2RF mirtazapine 7.5 mg tablet 7.5 mg PO PM Qty: 90 3RF memantine 5 mg tablet 5 mg PO BID Qty: 180 4RF levothyroxine 100 mcg tablet 100 mcg PO QAM Qty: 90 3RF multivitamin with minerals [Hair,Skin and Nails] Tablet 1 tab PO QAM meclizine 25 mg tablet 25 mg PO TID PRN (Reason: dizziness) Qty: 90 2RF cyanocobalamin (vitamin B-12) 1,000 mcg/mL solution 1,000 mcg IM MONTHLY Qty: 10 0RF (DME) syringe with needle 3 mL 25 gauge x 1" syringe See Rx Instructions .ROUTE .MEDSUPPLY Qty: 10 0RF Rx Instructions: As directed aspirin [Children's Aspirin] 81 mg Tablet,Chewable 81 mg PO QAM Qty: 90 0RF Patient Comments: Unable to verify OTC meds at this date/time nitroglycerin [Nitrostat] 0.4 mg tablet, sublingual 0.4 mg sublingual DIRECTED PRN (Reason: Chest Pain) Eliquis 5 mg tablet 0 mg PO BID Patient Comments: Unable to verify w/ patient/family at this date/time. PCP has it on pt's home med list but from 2022 and they did not prescribe it. Original Directions: 5mg by mouth twice daily - 09/07/24 diltiazem HCl 240 mg Capsule,Extended Release 24hr 0 mg PO QAM Patient Comments: Unable to verify w/ patient/family at this date/time. PCP has it on pt's home med list but from 2022 and they did not prescribe it. Original Directions: 240mg by mouth once daily - 09/07/24 simvastatin 10 mg Tablet 0 mg PO HS Patient Comments: Unable to verify w/ patient/family at this date/time. PCP has it on pt's home med list but from 2022 and they did not prescribe it. Original Directions: 10mg by mouth at bedtime - 09/07/24 budesonide-formoterol [Symbicort] 160-4.5 mcg/actuation Hfa Aerosol Inhaler 2 puff INHALATION BID PRN (Reason: Shortness Of Breath Or Wheezing) Patient Comments: Unable to verify w/ patient/family at this date/time. PCP has it on pt's home med list but from 2022 and they did not prescribe it. Original Directions: 2 puffs twice daily as needed - 09/07/24 Discharge Orders: Discharge Order (Routine); Ordered 09/08/24 Ordered By: Jeremie Polk Admission Data Admit Date/Time: 09/07/24 10:34 Attending Provider: Jeremie Polk Admit Provider: Rhoda Meadows Primary Care Provider: Patricio Quigley Other Providers: Abdiel,Rhoda E Hospital Stay Data Consultations 09/07/24 09:51 ED Decision to Admit Stat Diagnostic Imagining Performed 09/07/24 08:28 CT abd pelvis IV con only Stat CT angio chest PE protocol Stat 09/07/24 08:29 CT cervical spine wo con Stat CT head/brain wo con Stat Pending Results Patient Have Any Pending Studies at Discharge: Yes Discharge Instructions Given to Patient (Per Discharging Provider) See your PCP Dr. Patricio Quigley within 5-7 days of hospital discharge for routine follow up visit and to: (1) arrange for outpatient CT abd/pelvis with IV contrast in 6-8 weeks to ensure that acute, mild proximal sigmoid diverticulitis (as noted on 09/07/2024, 8:[address] abd/pelvis with IV contrast) has RESOLVED, and that colon carcinoma is not masquerading as acute, mild proximal sigmoid diverticulitis. (2) arrange for outpatient TSH level testing in 6-8 weeks, as your TSH level was low at 0.01 uIU/mL (09/07/2024, 8:38am) and your free T4 level was high at 2.27 ng/dL (09/07/2024, 8:38am), suggesting that you were hyperthyroid while taking your home-scheduled synthroid 100ug PO daily; subsequently, your free T3 level was normal at 2.48 pg/mL (09/08/2024, 8:23am), so you are actually euthyroid on synthroid 100ug PO daily as free T3 is the predominant, biologically active form of thyroid hormone in the human body. Hence, no dose adjustment in your home- scheduled synthroid 100ug PO daily is warranted at this time. Total Time Total Time Spent Total Time Spent (In Minutes): 35 minutes. Of this time period, 19 minutes were spent in coordinating patient's discharge. Coding Level of Care Code 05795 INP/OBS DISCH >30 MIN Diagnoses Fall W19.XXXA Diverticulitis K57.92 Paroxysmal atrial fibrillation I48.0 Dementia without behavioral disturbance, psychotic disturbance, mood disturbance, or anxiety, unspecified dementia severity, unspecified dementia type F03.90 Hypothyroidism E03.9
== END 2024-09-08 13:24 | disposition home or self-care (01) ==
LOC: 2N 08:24 → ED 08:24 → SUATTDRO 10:34 → 2N 13:12